=== PATIENT | female | born 1975 | race African-American/Black ===

== ENCOUNTER 2024-12-14 12:15 | Inpatient (IN) | payer MEDICAID, OTHER ==
[~2024-12-14] VITALS: Ht 170.2 cm; Wt 141.7 kg
--- NOTE | 2024-12-14 12:36 | ED.PDOC ---
HPI Comments This is a 49-year-old female who comes in with chief complaint of chest pain which started at approximately 7:00 a.m. this morning. The patient states that she has not taken her blood pressure medications for approximately three months as well as some other medications. The patient is also complaining of some nausea which she states she typically has and take Zofran for but she has been out of her medication. She states that the pain is stabbing in nature. It is nonradiating and rates a 7/10. There has been some shortness a breath but no fever or cough. Patient recently moved from [place] so does not have a primary care doctor at this time. She states that she has had a history of heart attack in the past and was also seen at [facility] for her cardiac disease. Chief Complaint: Chest Pain Time Seen by MD: 12:21 Reviewed Notes: Nurses Notes, Medications, Allergies (No allergies to medications) Allergies: Coded Allergies: Aspirin (Verified Allergy, Unknown, 12/14/24) Information Source: Patient Mode of Arrival: Ambulatory Severity: Moderate Timing: Hours (Started 7:00 a.m. in the morning) Duration: Since onset Prehospital treatment: None Location: Substernal Radiation: No Radiation Quality: Stabbing Onset: At Rest Cardiac Risk Factors: Smoker (Previous smoker), Family History, HTN PE Risk Factors: None History of: Similar pain in past, [place] Modifying Factors: Nothing Associated Signs and Symptoms: SOB, N/V (Nausea but no vomiting) Past Medical History PAST MEDICAL HISTORY: Arthritis, Asthma, Liver (Fatty liver disease), [place] Past Medical History (Other): Chronic back pain Surgical History: , Hysterectomy Surgical History (Other): Back procedures LICENSED PHYSICAL THERAPIST History: No Pertinent LICENSED PHYSICAL THERAPIST History Family History Family History: Family hx of heart arin Social History Smoker: Quit Less Than 1 Year Alcohol: Denies ETOH Use Drugs: Denies Drug Use Lives In: Home Constitutional: reports: weakness; denies: chills, diaphoresis, fatigue, fever, malaise, sweats, others EENTM: denies: blurred vision, double vision, ear bleeding, ear discharge, ear drainage, ear pain, ear ringing, eye pain, eye redness, hearing loss, mouth pain, mouth swelling, nasal discharge, nose bleeding, nose congestion, nose pain, photophobia, tearing, throat pain, throat swelling, voice changes, others Respiratory: reports: shortness of breath; denies: cough, hemoptysis, orthopnea, SOB at rest, SOB with excertion, stridor, wheezing, others Cardiovascular: reports: chest pain; denies: dizzy spells, diaphoresis, Dyspnea on exertion, edema, irregular heart beat, left arm pain, lightheadedness, palpitations, PND, syncope, others Gastrointestinal: reports: nausea; denies: abdomen distended, abdominal pain, blood streaked bowels, constipated, diarrhea, dysphagia, difficulty swallowing, hematemesis, melena, poor appetite, poor fluid intake, rectal bleeding, rectal pain, vomiting, others Genitourinary: denies: abnormal vagina bleeding, burning, dyspareunia, dysuria, flank pain, frequency, hematuria, incontinence, pain, , vagina discharge, urgency, others Neurological: reports: dizziness; denies: fainting, headache, left sided numbness, left sided weakness, numbness, paresthesia, pre-existing deficit, right sided numbness, right sided weakness, seizure, speech problems, tingling, tremors, weakness, others Musculoskeletal: denies: back pain, gout, joint pain, joint swelling, muscle pain, muscle stiffness, neck pain, others Integumetry: denies: bruises, change in color, change in hair/nails, dryness, laceration, lesions, lumps, rash, wounds, others Allergic/Immunocompromised: denies: Difficulty Healing, Frequent Infections, Hives, Itching, others Hematologic/Lymphatic: denies: anemia, blood clots, easy bleeding, easy bruising, swollen glands, others Endocrine: denies: excessive hunger, excessive sweating, excessive thirst, excessive urination, flushing, intolerance to cold, intolerance to heat, unexplained weight gain, unexplained weight loss, others Psychiatric: denies: anxiety, bipolar disorder, depression, hopeless, panic disorder, schizophrenia, sleepless, suicidal, others Physical Exam General Appearance: Moderate Distress, Obese HEENT: Normal ENT Inspection, Pharynx Normal, TMs Normal Neck: Full Range of Motion, Non-Tender, Normal, Normal Inspection Respiratory: Chest Non-Tender, Lungs Clear, No Accessory Muscle Use, No Respiratory Distress, Normal Breath Sounds Cardiovascular: No Edema, No JVD, No Murmur, No Gallop, Normal Peripheral Pulses, Regular Rate/Rhythm Breast Exam: Deferred Gastrointestinal: No Organomegaly, Non Tender, No Pulsatile Mass, Normal Bowel Sounds, Soft Genitalia: Deferred Pelvic: Deferred Rectal: Deferred Extremities: No calf tenderness, Normal capillary refill, Normal inspection, Normal range of motion, Non-tender, No pedal edema Musculoskeletal : Apperance: Normal Neurologic: Alert, head of acquisitions II-XII nml as Tested, Motor Weakness, Normal Affect, Normal Mood, No Sensory Deficits Cerebellar Function: Normal Reflexes: Normal Skin: Dry, Normal Color, Warm Lymphatic: No Adenopathy EKG EKG : Pulse Rate (adult): 93 [place]: Normal Cardiac Rhythm: NSR Hypertrophy: LAE Was a procedure done? Was a procedure done?: No CP Differential Dx Differential Diagnosis: Angina, [place], Pulmonary Embolus Differential Diagnosis: CHF Differential Diagnosis: Pericarditis X-Ray, Labs, Meds, VS Vital Signs Date Time Temp Pulse Resp B/P (MAP) Pulse Ox O2 Delivery O2 Flow Rate FiO2 12/14/24 15:30 98.1 89 19 140/88 (105) 96 98.1 12/14/24 15:30 Room Air* 0 21 12/14/24 13:20 92 12/14/24 12:36 93 12/14/24 12:33 98.0 93 18 161/100 (120) 98 98.0 12/14/24 12:22 93 Lab Test 12/14/24 13:47 12/14/24 12:36 Range/Units Troponin I High Sensitivity < 3 L < 3 L </=34 ng/L White Blood Count 5.0 4.4-10.8 10^3/uL Red Blood Count 4.38 4.0-5.20 10^6/uL Hemoglobin 11.7 L 12.2-16.2 g/dL Hematocrit 35.6 L 36.0-46.0 % Mean Corpuscular Volume 81.3 80.0-100.0 fL Mean Corpuscular Hemoglobin 26.6 L 28.0-32.0 pg Mean Corpuscular Hemoglobin Concent 32.8 32.0-36.0 g/dL Red Cell Distribution Width 14.5 H 11.8-14.3 % Platelet Count 272 140-450 10^3/uL Mean Platelet Volume 7.7 6.9-10.8 fL Neutrophils (%) (Auto) 43.8 37.0-80.0 % Lymphocytes (%) (Auto) 45.5 10.0-50.0 % Monocytes (%) (Auto) 6.1 0.0-12.0 % Eosinophils (%) (Auto) 3.6 0.0-7.0 % Basophils (%) (Auto) 1.0 0.0-2.0 % Neutrophils # (Auto) 2.2 1.6-8.6 10 ^3/uL Lymphocytes # (Auto) 2.3 0.4-5.4 10 ^3/uL Monocytes # (Auto) 0.3 0-1.3 10 ^3/uL Eosinophils # (Auto) 0.2 0-0.8 10 ^3/uL Basophils # (Auto) 0.1 0-0.2 10 ^3/uL Nucleated Red Blood Cells 0.3 % Prothrombin Time 10.6 9.3-11.8 sec Prothrombin Time INR 1.00 0.9-1.15 Activated Partial Thromboplast Time 27.0 24.5-34.5 SEC Sodium Level 142 136-145 mmol/L Potassium Level 3.9 3.5-5.1 mmol/L Chloride Level 108 H 98-107 mmol/L Carbon Dioxide Level 26 20-31 mmol/L Anion Gap 8 5-15 Blood Urea Nitrogen 8 L 9-23 mg/dL Creatinine 0.64 0.550-1.02 mg/dL Glomerular Filtration Rate Calc 107 >90 mL/min BUN/Creatinine Ratio 12.5 10.0-20.0 Serum Glucose 110 H 74-106 mg/dL Calcium Level 10.0 8.7-10.4 mg/dL Magnesium Level 1.9 1.6-2.6 mg/dL Total Bilirubin 0.6 0.2-1.0 mg/dL Aspartate Amino Transferase (AST) < 8 L 13-40 U/L Alanine Aminotransferase (ALT) 14 7-40 U/L Alkaline Phosphatase 89 46-116 U/L B-Type Natriuretic Peptide 7.56 0-100 pg/mL Total Protein 7.7 5.7-8.2 g/dL Albumin 4.3 3.2-4.8 g/dL IV Hep-Lock was established The patient's CBC is within normal limits The chemistry panel is within normal limits The troponin level x2 is negative The chest x-ray shows: No sign of any abnormalities At this time, the patient is being admitted to the hospitalist A cardiology consult will be obtained The patient is allergic to aspirin so was not given any aspirin The patient is being given morphine 4 mg IV push The patient is given Zofran 4 mg IV push Images Reviewed?: Images reviewed and evaluated by me Time of 1ST Reevaluation: 12:35 Reevaluation 1ST: Unchanged Patient Education/Counseling: Diagnosis, Treatment, Prognosis Family Education/Counseling: No Family Present Departure 1 Departure Time of Disposition: 15:48 Impression: Primary Impression: Acute coronary syndrome Disposition: 09 ADMITTED INPATIENT Admit to: Tele Condition: Fair Critical Care Note Critical Care Time?: Yes (45 min-critical care time only) Stability Stability form required: Yes Unstable for transfer: Telemetry monitoring (Telemetry monitoring required), ED Physician Assesment (Clinical assesment) Heart Score Heart Score: Heart Score Response (Comments) Value History Moderate Suspicious 1 EKG Normal 0 Age 45-64 1 Risk Factors >3 or Hx ASHD 2 Troponin Normal limit 0 Total 4 CHELLY HINES MD December 14, 2024 12:36
[2024-12-14 12:50] LABS: Basophils # (auto) 0.1 10 ^3/uL (0-0.2); Eosinophils # (auto) 0.2 10 ^3/uL (0-0.8); Eosinophils % (auto) 3.6 % (0.0-7.0); Hematocrit 35.6 % (36.0-46.0); Hemoglobin 11.7 g/dL (12.2-16.2); Lymphocytes # (auto) 2.3 10 ^3/uL (0.4-5.4); Lymphocytes % (auto) 45.5 % (10.0-50.0); Mean Corpuscular Hemoglobin 26.6 pg (28.0-32.0); Mean Corpuscular Hgb Conc. 32.8 g/dL (32.0-36.0); Mean Corpuscular Volume 81.3 fL (80.0-100.0); Monocytes # (auto) 0.3 10 ^3/uL (0-1.3); Monocytes % (auto) 6.1 % (0.0-12.0); Neutrophils # (auto) 2.2 10 ^3/uL (1.6-8.6); Neutrophils % (auto) 43.8 % (37.0-80.0); Nucleated Red Blood Cells % 0.3 %; Platelet Count (auto) 272 10^3/uL (140-450); Red Blood Cells 4.38 10^6/uL (4.0-5.20); Red Cell Distribution Width 14.5 % (11.8-14.3)
[2024-12-14 13:05] LABS: Prothrombin Time 10.6 sec (9.3-11.8)
[2024-12-14 13:07] LABS: Alanine Aminotransferase 14 U/L (7-40); Albumin 4.3 g/dL (3.2-4.8); Alkaline Phosphatase 89 U/L (46-116); Anion Gap 8 (5-15); BUN/Creatinine Ratio 12.5 (10.0-20.0); Bilirubin, Total 0.6 mg/dL (0.2-1.0); Carbon Dioxide 26 mmol/L (20-31); Magnesium 1.9 mg/dL (1.6-2.6); Potassium 3.9 mmol/L (3.5-5.1); Sodium 142 mmol/L (136-145); Total Protein 7.7 g/dL (5.7-8.2)
[2024-12-14 13:12] LABS: Aspartate Aminotransferase < 8 U/L (13-40); Blood Urea Nitrogen 8 mg/dL (9-23); Chloride 108 mmol/L (98-107); Glucose 110 mg/dL (74-106)
--- NOTE | 2024-12-14 13:20 | DVH ---
EXAM: XY CHEST PORTABLE Indication: CP Technique: Single frontal view of the chest was obtained Comparison: None FINDINGS: Lines and Tubes: None Lungs: No focal consolidation. Pleura: No effusion. No pneumothorax. Cardiomediastinal contours: Unremarkable Bones: No acute osseous abnormality. IMPRESSION: No acute cardiopulmonary disease.
--- NOTE | 2024-12-14 13:22 | ECG ---
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
[2024-12-14] MEDS: ONDANSETRON HCL 4 MG/2 ML VIAL IV ONE (16:40)
[2024-12-14] MEDS: MORPHINE SULFATE 4 MG/ML SYR/VIAL IV ONE (16:40)
[2024-12-14] MEDS ORDERED: MORPHINE SULFATE INJ 2 MG/ml SYRG IV PRN (18:15)
[2024-12-14] MEDS ORDERED: NITROGLYCERIN 0.4 MG SL TAB SL PRN (18:15)
[2024-12-14] MEDS ORDERED: ACETAMINOPHEN 325 MG TAB PO PRN (18:30)
[2024-12-14] MEDS ORDERED: hydroCHLOROthiazide 25 MG TAB PO ONE (18:30)
[2024-12-14] MEDS ORDERED: ENOXAPARIN SOD 40 MG/0.4 ML SYRINGE SC ONE (18:45)
--- NOTE | 2024-12-14 20:20 | DVHHPRES ---
History of Present Illness Resident Creating Document: VANNA BALLARD RESIDENT Reason for Visit: Chest pain, back pain History of Present Illness Patient is a 49-year-old female with a past medical history of arthritis, asthma liver fatty liver disease and [place] presented to the ED with a chief complaint of chest pain thus we will care of this morning. Per the patient she described the pain as stabbing in nature, intermittent with no radiation, reproducible on palpation and rated 7/10. According to the patient, she just relocated from [place] to [place], but before coming here, there was an family emergency in [place] where she lived for few months prior to coming to [place]. According to the patient while in [place], she follows with a bakery machine mechanic Dr. Parker bhagat who has run multiple tests including stress test, LIV, etc. regarding her chest pain and so far nothing has yielded any results. She states that she has had a history of heart attack in the past and was also seen at [facility] for her cardiac disease. In the ED today,her troponin, BNP and chest x-ray were all negative for any acute findings. Patient denied cought, flu lik symptoms, fever, chills. shortness of breath. Patient vitals in the ED was grossly unremarkable other than elevated blood pressure which measures 168/100. Patient also mentioned that were attenuation where she has been having spinal pain for which she sees Dr. Diaz. Dr. Lozoya is a spine doctor who diagnosed her of lumbar spinal stenosis. She has been on pain medication for a very long time but nothing has seemed to control her pain level. Past medical history: Arthritis, Asthma, Liver (Fatty liver disease), [place],Chronic back pain Surgical History: , Hysterectomy,Back procedures MARGARINE CHURN OPERATOR History: No Pertinent MARGARINE CHURN OPERATOR History Family history: hx of heart arin Social history: Smoker quit about a year ago, denies alcohol use denies any drug abuse lives at home. Quit Less Than 1 Year Past Medical History See HPI Past Surgical History See HPI Review of Systems Review of Systems Constitutional: Denies fever no chills no feeling of malaise, mild distress chest pain HEENT: Denies headache, ear pain, ear discharges, conjunctivitis, nasal discharge throat pain Cardiovascular: Denies chest pain, palpitation, orthopnea, PND, or pedal edema Respiratory: Denies shortness of breath, cough cough, sputum production, hem optysis, GI: Denies abdominal pain, nausea, vomiting, diarrhea, hematemesis, hematochezia, : Denies frequency, urgency, hematuria, Endocrine: Denies unintentional weight gain or weight loss, feeling of hot flashes, [place]: Denies easy bruising, bleeding disorders, epistaxis Musculoskeletal: Denies joint pains, muscle aches Psych: No evidence of depression, tadeo, suicidal ideation Allergies: Coded Allergies: Aspirin (Verified Allergy, Unknown, 12/14/24) Medications Current Medications Medications Dose Ordered Sig/Cezar Route Start Time Stop Time Status Last Admin Dose Admin Nitroglycerin 0.4 mg Q5MINP PRN SL 12/14/24 18:15 Morphine Sulfate 2 mg Q30M PRN IV 12/14/24 18:15 Hydrochlorothiazide 12.5 mg DAILY PO 12/15/24 10:00 Acetaminophen/ Hydrocodone Bitart 1 tab Q6HPRN PRN PO 12/14/24 18:30 Acetaminophen 325 mg Q4HP PRN PO 12/14/24 18:30 Exam Vital Signs Vital Signs Date Time Temp Pulse Resp B/P (MAP) Pulse Ox O2 Delivery O2 Flow Rate FiO2 12/14/24 18:07 98.5 91 13 145/80 (101) 97 98.5 12/14/24 15:30 Room Air* 0 21 Exam General Appearance: Alert, Oriented X3, Cooperative, No acute distress HEENT: Atraumatic, PERRLA, EOMI, Mucous membrane moist/pink Respiratory: Clear to auscultation, Normal air movement Cardiovascular: Regular rate, Normal S1, Normal S2, No murmurs, chest wall tenderness Abdominal: NO distention, tenderness, bowel sounds present, no scars noted Extremities: No clubbing, No cyanosis, No edema, Normal pulses, No tenderness/swelling Skin: No rashes, No breakdown, No significant lesion Neuro: Normal gait, Normal speech, Strength at 5/5 X4 ext, Normal tone, Sensation intact, Cranial nerves 3-12 NL, Reflexes 2+, spin column tenderness Psych/Mental Status: Mental status NL, Mood NL Labs/Xrays Labs Test 12/14/24 13:47 12/14/24 12:36 Range/Units Troponin I High Sensitivity < 3 L </=34 ng/L White Blood Count 5.0 4.4-10.8 10^3/uL Red Blood Count 4.38 4.0-5.20 10^6/uL Hemoglobin 11.7 L 12.2-16.2 g/dL Hematocrit 35.6 L 36.0-46.0 % Mean Corpuscular Volume 81.3 80.0-100.0 fL Mean Corpuscular Hemoglobin 26.6 L 28.0-32.0 pg Mean Corpuscular Hemoglobin Concent 32.8 32.0-36.0 g/dL Red Cell Distribution Width 14.5 H 11.8-14.3 % Platelet Count 272 140-450 10^3/uL Mean Platelet Volume 7.7 6.9-10.8 fL Neutrophils (%) (Auto) 43.8 37.0-80.0 % Lymphocytes (%) (Auto) 45.5 10.0-50.0 % Monocytes (%) (Auto) 6.1 0.0-12.0 % Eosinophils (%) (Auto) 3.6 0.0-7.0 % Basophils (%) (Auto) 1.0 0.0-2.0 % Neutrophils # (Auto) 2.2 1.6-8.6 10 ^3/uL Lymphocytes # (Auto) 2.3 0.4-5.4 10 ^3/uL Monocytes # (Auto) 0.3 0-1.3 10 ^3/uL Eosinophils # (Auto) 0.2 0-0.8 10 ^3/uL Basophils # (Auto) 0.1 0-0.2 10 ^3/uL Nucleated Red Blood Cells 0.3 % Prothrombin Time 10.6 9.3-11.8 sec Prothrombin Time INR 1.00 0.9-1.15 Activated Partial Thromboplast Time 27.0 24.5-34.5 SEC Sodium Level 142 136-145 mmol/L Potassium Level 3.9 3.5-5.1 mmol/L Chloride Level 108 H 98-107 mmol/L Carbon Dioxide Level 26 20-31 mmol/L Anion Gap 8 5-15 Blood Urea Nitrogen 8 L 9-23 mg/dL Creatinine 0.64 0.550-1.02 mg/dL Glomerular Filtration Rate Calc 107 >90 mL/min BUN/Creatinine Ratio 12.5 10.0-20.0 Serum Glucose 110 H 74-106 mg/dL Calcium Level 10.0 8.7-10.4 mg/dL Magnesium Level 1.9 1.6-2.6 mg/dL Total Bilirubin 0.6 0.2-1.0 mg/dL Aspartate Amino Transferase (AST) < 8 L 13-40 U/L Alanine Aminotransferase (ALT) 14 7-40 U/L Alkaline Phosphatase 89 46-116 U/L B-Type Natriuretic Peptide 7.56 0-100 pg/mL Total Protein 7.7 5.7-8.2 g/dL Albumin 4.3 3.2-4.8 g/dL Assessment/Plan Assessment/Plan Assessment Chest pain rule out acute coronary syndrome Chest pain atypical noncardiac related probably musculoskeletal Hypertensive urgency Chronic back pain Morbid obesity BMI 48.9 Arthritis, Asthma, Liver (Fatty liver disease), Hisotory of [place] Chronic back pain Plan recheck troponins Initiate antihypertensive medication: hydrochlorothiazide Pain medication with Tylenol for mild pain, [place] for moderate level pain Repeat CMP in the morning Get records from bakery machine mechanic in [place] Goal of care discussed for more than 20 minutes: Full code Case and plan discussed with Dr. Edmonds Plan discussed with: Patient My Orders Orders - VANNA BALLARD RESIDENT Procedure Category Date Status Time Admit ADMIT 12/14/24 Transmitted 18:15 Nitroglycerin PHA 12/14/24 In Process Sublingual (Ntrostat 18:15 Morphine Sulfate PHA 12/14/24 In Process Injection 18:15 Oxygen By Nasal RT 12/14/24 Transmitted Cannula 18:15 Stat Ekg For Chest PEYTON 12/14/24 In Process Pain 18:15 Notify Md Of Changes PEYTON 12/14/24 In Process From Base 18:15 Dupligraph Operator For PEYTON 12/14/24 In Process 24 Hours 18:15 Hydrochlorothiazide PHA 12/15/24 In Process Tablet (Hydrochlorot 10:00 Hydrocodone-Acet PHA 12/14/24 In Process 5/325mg Tab ([place] 18:30 Acetaminophen Tablet PHA 12/14/24 In Process (Tylenol Tablet) 18:30 Covid19 Antigen Zhanna LAB 12/14/24 Logged Rapid Influenza A&B LAB 12/14/24 Logged 18:27 Erythrocyte LAB 12/14/24 Logged Sedimentation Rate 18:27 Date of Service: December 14, 2024 Billing Provider: MARGARITA EDMONDS MD Common Visit Codes: [id number] INP/OBS CARE (HIGH) VANNA BALLARD RESIDENT December 14, 2024 20:20 MARGARITA EDMONDS MD December 15, 2024 07:21
[2024-12-14 20:59] LABS: COVID19 ANTIGEN SOFIA FIA NEGATIVE (NEGATIVE)
[2024-12-14 21:15] LABS: Erythrocyte Sedimentation Rate 39 mm/hr (0-20)
[2024-12-15 01:56] LABS: Rapid Influenza A Negative (Negative); Rapid Influenza B Negative (Negative)
[2024-12-15] MEDS: HYDROcodone-ACET 5/325MG TAB PO PRN (02:53)
[2024-12-15] MEDS ORDERED: KETOROLAC TROMETH 30 MG/ML 1ML VIAL IV PRN (03:15)
[2024-12-15 03:30] VITALS: BP 140/90; PULSE 83; RESP 15; TEMP 97.8; O2SAT 95
[2024-12-15] MEDS: LOSARTAN POTASSIUM 50 MG TAB PO SCH (03:58)
[2024-12-15 05:00] VITALS: BP 140/90; PULSE 83; RESP 14; TEMP 97.8; O2SAT 95
[2024-12-15] MEDS: METHOCARBAMOL 500 MG TAB PO SCH (06:00)
[2024-12-15] MEDS: GABAPENTIN 100 MG CAP PO SCH (06:38)
[2024-12-15 09:00] VITALS: BP 128/78; PULSE 73; TEMP 97.8; O2SAT 98
[2024-12-15 09:54] LABS: Potassium 4.2 mmol/L (3.5-5.1); Sodium 142 mmol/L (136-145)
[2024-12-15 09:55] LABS: Anion Gap 5 (5-15); Calcium 9.8 mg/dL (8.7-10.4); Carbon Dioxide 29 mmol/L (20-31)
[2024-12-15 09:59] LABS: Chloride 108 mmol/L (98-107)
[2024-12-15 10:00] LABS: BUN/Creatinine Ratio 10.3 (10.0-20.0); Blood Urea Nitrogen 7 mg/dL (9-23); Glucose 170 mg/dL (74-106)
[2024-12-15] MEDS ORDERED: MORPHINE SULFATE INJ 2 MG/ml SYRG IV SCH (10:00)
[2024-12-15 10:01] LABS: CRP High Sensitivity 0.68 mg/dL (<1.0)
[2024-12-15] MEDS: ENOXAPARIN SOD 40 MG/0.4 ML SYRINGE SC SCH (11:14)
[2024-12-15] MEDS: MORPHINE SULFATE INJ 2 MG/ml SYRG IV PRN (11:26)
[2024-12-15] MEDS: hydroCHLOROthiazide 25 MG TAB PO SCH (12:22)
[2024-12-15 13:00] VITALS: BP 116/70; PULSE 83; RESP 16; TEMP 98.6; O2SAT 100
--- NOTE | 2024-12-15 14:55 | ECG ---
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
--- NOTE | 2024-12-15 16:16 | DVHPNRES ---
Progress Note Date Seen: December 15, 2024 Resident Creating Document: VANNA BALLARD RESIDENT Has the PT tested + for MRSA If YES, has PT been informed?: No Medical Necessity Reason Pt with a Central, PICC or Fol: No Medical Necessity Reason 12/15 Patient is seen and examined today. Blood pressure seems better than yesterday. However she continued to complain of back pain and said she did not feel well with the [place]. We lei asked for the number from her r d manager's office to reach out to Dr. Canales to faxed her cardiac history and what she was managed for in the past. Also got the telephone number [email or web address] with DR. Diaz, her spine doctor's office. Patient the patient, she was getting steriod injection every 2 months for her back pain. I did mentioned to the patient that she will need to be seen by a specialist for this type of pain management. Also complained of abdominal pain and she is currently on showed on 3 L of oxygen which is new from yesterday. She has no evidence of bilateral pitting edema but given her current code had history said to get an echo to re-evaluate. ESR elevated, but CRP is wnl. Subjective Review of Systems Constitutional: Denies fever no chills no feeling of malaise HEENT: Denies headache, ear pain, ear discharges, conjunctivitis, nasal discharge throat pain Cardiovascular: Denies chest pain, palpitation, orthopnea, PND, or pedal edema Respiratory: Denies shortness of breath, cough cough, sputum production, hemoptysis, GI: Denies abdominal pain, nausea, vomiting, diarrhea, hematemesis, hematochezia, : Denies frequency, urgency, hematuria, Endocrine: Denies unintentional weight gain or weight loss, feeling of hot flashes, [place]: Denies easy bruising, bleeding disorders, epistaxis Musculoskeletal: Denies joint pains, muscle aches Psych: No evidence of depression, tadeo, suicidal ideation Objective vital signs Vital Sign Date Time Temp Pulse Resp B/P (MAP) Pulse Ox O2 Delivery O2 Flow Rate FiO2 12/15/24 13:00 83 12/15/24 13:00 98.6 16 116/70 (85) 100 98.6 12/14/24 15:30 Room Air* 0 21 medications Current Medications Medications Dose Ordered Sig/Cezar Route Start Time Stop Time Status Last Admin Dose Admin Nitroglycerin 0.4 mg Q5MINP PRN SL 12/14/24 18:15 Hydrochlorothiazide 12.5 mg DAILY PO 12/15/24 10:00 12/15/24 12:22 12.5 MG Acetaminophen 325 mg Q4HP PRN PO 12/14/24 18:30 Losartan Potassium 50 mg DAILY PO 12/15/24 03:15 12/15/24 03:58 50 MG Gabapentin 100 mg BID PO 12/15/24 04:15 12/15/24 11:13 100 MG Methocarbamol 500 mg QID PO 12/15/24 04:15 12/15/24 13:31 500 MG Enoxaparin Sodium 40 mg DAILY SC 12/15/24 10:00 12/15/24 11:14 40 MG Morphine Sulfate 1 mg Q4HP PRN IV 12/15/24 11:00 12/15/24 11:26 1 MG Examination General Appearance: Alert, Oriented X3, Cooperative, No acute distress HEENT: Atraumatic, PERRLA, EOMI, Mucous membrane moist/pink Respiratory: Clear to auscultation, Normal air movement Cardiovascular: Regular rate, Normal S1, Normal S2, No murmurs, chest wall tenderness Abdominal: Large abdomen tenderness, bowel sounds present, no scars noted Extremities: No clubbing, No cyanosis, No edema, Normal pulses, No tenderness/swelling Skin: No rashes, No breakdown, No significant lesion Neuro: Normal gait, Normal speech, Strength at 5/5 X4 ext, Normal tone, Sensation intact, Cranial nerves 3-12 NL, Reflexes 2+ Psych/Mental Status: Mental status NL, Mood NL laboratory and microbiology Laboratory Tests 12/15/24 09:25 12/14/24 12:36 Test 12/15/24 09:25 Range/Units Serum Glucose 170 H 74-106 mg/dL Problem List/Assessment/Plan Problem List/Assessment/Plan Assessment Chest pain rule out acute coronary syndrome Chest pain atypical noncardiac related probably musculoskeletal Hypertensive urgency, imp Chronic back pain Morbid obesity BMI 48.9 Arthritis, Asthma, Steatosis (Fatty liver disease), 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 Parker Almazan and Dr. Diaz's office for information Echo and US of the abdomen Goal of care discussed for more than 15 minute: Full code Case and plan discussed with Dr. Doran Plan discussed with: Patient My Orders My Orders Orders - VANNA BALLARD RESIDENT Procedure Category Date Status Time Admit ADMIT 12/14/24 Transmitted 18:15 Nitroglycerin PHA 12/14/24 In Process Sublingual (Ntrostat 18:15 Oxygen By Nasal RT 12/14/24 Transmitted Cannula 18:15 Stat Ekg For Chest PEYTON 12/14/24 In Process Pain 18:15 Notify Md Of Changes PEYTON 12/14/24 In Process From Base 18:15 Grip Assembler For PEYTON 12/14/24 In Process 24 Hours 18:15 Hydrochlorothiazide PHA 12/15/24 In Process Tablet (Hydrochlorot 10:00 Acetaminophen Tablet PHA 12/14/24 In Process (Tylenol Tablet) 18:30 Electrocardigram EKG 12/14/24 Logged 22:30 Enoxaparin Sodium PHA 12/15/24 In Process (Lovenox) 10:00 Morphine Sulfate PHA 12/15/24 In Process Injection 11:00 Electrocardigram EKG 12/15/24 Logged 11:47 Echo 2d Mode Cardiac US 12/15/24 Logged DOP 14:48 Abdomen Limited US 12/15/24 Taken 14:48 Date of Service: December 15, 2024 Billing Provider: CHELSIE DORAN MD Common Visit Codes: [id number] INP/OBS CARE(HIGH) VANNA BALLARD RESIDENT December 15, 2024 16:16 CHELSIE DORAN MD December 15, 2024 18:00
--- NOTE | 2024-12-15 16:54 | DVH ---
INDICATION: Right sided abdomen pain TECHNIQUE: Multiple real-time sonographic images of the abdomen were obtained. COMPARISON: None FINDINGS: The liver is heterogeneous in echogenicity. The liver measures 18cm. No intrahepatic bilia ry ductal dilatation is noted. The gallbladder wall measures 0.2 cm and is unremarkable. No gallstones or sludge is seen. The commo n duct measures 0.3 cm and is unremarkable. No pericholecystic fluid is noted. The right kidney measures 10cm. No hydronephrosis. The pancreas is not well visualized due to obscuration from bowel gas. The visualized portions of the IVC and aorta are grossly unremarkable. IMPRESSION: Hepatomegaly/hepatic steatosis
[2024-12-15 17:00] VITALS: BP 119/69; PULSE 74; RESP 16; TEMP 98.6; O2SAT 99
[2024-12-15 21:00] VITALS: BP 119/69; PULSE 88; RESP 16; TEMP 97.8; O2SAT 100
[2024-12-16] VITALS (9 sets, daily range): BP systolic 110–149; BP diastolic 62–81; PULSE 71–98; RESP 17–19; TEMP 97.7–98.3; O2SAT 94–100
[2024-12-16] MEDS ORDERED: GABA-1308 PO (11:31)
[2024-12-16] MEDS ORDERED: HYDR-4902 PO (11:31)
[2024-12-16] MEDS ORDERED: LOSA-534 PO (11:55)
[2024-12-16] MEDS ORDERED: METH-1181 PO (11:55)
[2024-12-16] MEDS ORDERED: HYDR25TA5 PO (11:55)
[2024-12-16] MEDS ORDERED: ACET-1882 PO (11:55)
[2024-12-16] MEDS: MORPHINE SULFATE 4 MG/ML SYR/VIAL IV PRN (12:00)
--- NOTE | 2024-12-16 12:09 | DVHDSRES ---
Discharge Summary Date of Admission Resident Creating Document: VANNA BALLARD RESIDENT December 14, 2024 at 18:15 Date of Discharge: December 16, 2024 Admitting Diagnosis Chest pain Labs/Diagnostic Data: Laboratory Results Test 12/15/24 09:25 12/15/24 01:04 12/14/24 21:54 12/14/24 20:20 Sodium Level 142 mmol/L (136-145) Potassium Level 4.2 mmol/L (3.5-5.1) Chloride Level 108 mmol/L (98-107) Carbon Dioxide Level 29 mmol/L (20-31) Anion Gap 5 (5-15) Blood Urea Nitrogen 7 mg/dL (9-23) Creatinine 0.68 mg/dL (0.550-1.02) Glomerular Filtration Rate Calc 105 mL/min (>90) BUN/Creatinine Ratio 10.3 (10.0-20.0) Serum Glucose 170 mg/dL (74-106) Calcium Level 9.8 mg/dL (8.7-10.4) C-Reactive Protein High Sensitivity 0.68 mg/dL (<1.0) Thyroid Stimulating Hormone (TSH) 1.03 uIU/mL (0.55-4.78) Influenza Type A Antigen Negative (Negative) Influenza Type B Antigen Negative (Negative) Troponin I High Sensitivity < 3 ng/L (</=34) SARS-CoV-2 Antigen (Rapid) Negative (NEGATIVE) Test 12/14/24 19:24 12/14/24 12:36 Erythrocyte Sedimentation Rate 39 mm/hr (0-20) White Blood Count 5.0 10^3/uL (4.4-10.8) Red Blood Count 4.38 10^6/uL (4.0-5.20) Hemoglobin 11.7 g/dL (12.2-16.2) Hematocrit 35.6 % (36.0-46.0) Mean Corpuscular Volume 81.3 fL (80.0-100.0) Mean Corpuscular Hemoglobin 26.6 pg (28.0-32.0) Mean Corpuscular Hemoglobin Concent 32.8 g/dL (32.0-36.0) Red Cell Distribution Width 14.5 % (11.8-14.3) Platelet Count 272 10^3/uL (140-450) Mean Platelet Volume 7.7 fL (6.9-10.8) Neutrophils (%) (Auto) 43.8 % (37.0-80.0) Lymphocytes (%) (Auto) 45.5 % (10.0-50.0) Monocytes (%) (Auto) 6.1 % (0.0-12.0) Eosinophils (%) (Auto) 3.6 % (0.0-7.0) Basophils (%) (Auto) 1.0 % (0.0-2.0) Neutrophils # (Auto) 2.2 10 ^3/uL (1.6-8.6) Lymphocytes # (Auto) 2.3 10 ^3/uL (0.4-5.4) Monocytes # (Auto) 0.3 10 ^3/uL (0-1.3) Eosinophils # (Auto) 0.2 10 ^3/uL (0-0.8) Basophils # (Auto) 0.1 10 ^3/uL (0-0.2) Nucleated Red Blood Cells 0.3 % Prothrombin Time 10.6 sec (9.3-11.8) Prothrombin Time INR 1.00 (0.9-1.15) Activated Partial Thromboplast Time 27.0 SEC (24.5-34.5) Magnesium Level 1.9 mg/dL (1.6-2.6) Total Bilirubin 0.6 mg/dL (0.2-1.0) Aspartate Amino Transferase (AST) < 8 U/L (13-40) Alanine Aminotransferase (ALT) 14 U/L (7-40) Alkaline Phosphatase 89 U/L (46-116) B-Type Natriuretic Peptide 7.56 pg/mL (0-100) Total Protein 7.7 g/dL (5.7-8.2) Albumin 4.3 g/dL (3.2-4.8) Other Laboratory Tests 12/15/24 09:25 12/14/24 12:36 Brief Hx & Hospital Course: History of Present Illness Patient is a 49-year-old female with a past medical history of arthritis, asthma liver fatty liver disease and AL presented to the ED with a chief complaint of chest pain thus we will care of this morning. Per the patient she described the pain as stabbing in nature, intermittent with no radiation, reproducible on palpation and rated 7/10. According to the patient, she just relocated from [place] to [place], but before coming here, there was an family emergency in [place] where she lived for few months prior to coming to [place]. According to the patient while in [place], she follows with a cardiology nurse Dr. Parker bhagat who has run multiple tests including stress test, LIV, etc. regarding her chest pain and so far nothing has yielded any results. She states that she has had a history of heart attack in the past and was also seen at [facility] for her cardiac disease. In the ED today,her troponin, BNP and chest x-ray were all negative for any acute findings. Patient denied cought, flu lik symptoms, fever, chills. shortness of breath. Patient vitals in the ED was grossly unremarkable other than elevated blood pressure which measures 168/100. Patient also mentioned that were attenuation where she has been having spinal pain for which she sees Dr. Diaz. Dr. Lozoya is a spine doctor who diagnosed her of lumbar spinal stenosis. She has been on pain medication for a very long time but nothing has seemed to control her pain level. Past medical history: Arthritis, Asthma, Liver (Fatty liver disease), AL,Chronic back pain Surgical History: , Hysterectomy,Back procedures AUTOMOTIVE SERVICE MANAGEMENT TEACHER History: No Pertinent AUTOMOTIVE SERVICE MANAGEMENT TEACHER History Family history: hx of heart arin Social history: Smoker quit about a year ago, denies alcohol use denies any drug abuse lives at home. Quit Less Than 1 Year Brief Hospitals course This 49-year-old female with a past medical history of arthritis, asthma, liver fatty liver disease and AL presented to the ED with a chief complaint of chest pain that woke her up from sleep. Chest pain as stabbing in nature, intermittent with no radiation, reproducible on palpation and rated 7/10. In the ED today,her troponin, BNP and chest x-ray were all negative for any acute findings. Patient denied cough, flu-lik symptoms, fever, chills, shortness of breath. Vitals in the ED was grossly unremarkable other than elevated blood pressure which measures 168/100. Patient also complained of abdominal pain and she is currently on showed on 3L of oxygen which is new from yesterday. 12 lead ekg is unremarkable. Echo report not available. ESR elevated, but CRP is wnl. Patient was started on hydrochlorothiazide and losartan. For her chronic pain management, patient received [place] and morphine. Today patient is doing well and BP is under control. She is stable for discharge. But she needs to follow up with PCP for a referral to a pain specialist for adequate pain management. Recommends that patient comes to the discharge clinic for post discharge reassessment. Review of System Constitutional: Denies fever no chills no feeling of malaise HEENT: Denies headache, ear pain, ear discharges, conjunctivitis, nasal discharge throat pain Cardiovascular: Denies chest pain, palpitation, orthopnea, PND, or pedal edema Respiratory: Denies shortness of breath, cough cough, sputum production, hemoptysis, GI: Denies abdominal pain, nausea, vomiting, diarrhea, hematemesis, hematochezia, : Denies frequency, urgency, hematuria, Endocrine: Denies unintentional weight gain or weight loss, feeling of hot flashes, [place]: Denies easy bruising, bleeding disorders, epistaxis Musculoskeletal: Denies joint pains, muscle aches Psych: No evidence of depression, tadeo, suicidal ideation Examination General Appearance: Alert, Oriented X3, Cooperative, No acute distress HEENT: Atraumatic, PERRLA, EOMI, Mucous membrane moist/pink Respiratory: Clear to auscultation, Normal air movement Cardiovascular: Regular rate, Normal S1, Normal S2, No murmurs, no chest wall tenderness Abdominal: NO distention, no tenderness, bowel sounds present, no scars noted Extremities: No clubbing, No cyanosis, No edema, Normal pulses, No tenderness/swelling Skin: No rashes, No breakdown, No significant lesion Neuro: Normal gait, Normal speech, Strength at 5/5 X4 ext, Normal tone, Sensation intact, Cranial nerves 3-12 NL, Reflexes 2+ Psych/Mental Status: Mental status NL, Mood NL Diagnoses Chest pain rule out acute coronary syndrome Chest pain atypical noncardiac related probably musculoskeletal Hypertensive urgency, imp Chronic back pain Morbid obesity BMI 48.9 Arthritis, Asthma, Steatosis (Fatty liver disease), History of AL Chronic back pain Abdominal pain Hepatomegaly Discharge plan Follow up at the discharge Clinic 7 days Resume antihypertensive medication Counseled patient on weight loss which will help with the fatty liver Advised patient get a PCP and early also consult waiting neurologist or spine doctor for her chronic back pain Patient advised to return to the ED if she does not feel better Discharged plan discussed with Dr. Amezcua Condition at Discharge: Good Final Diagnosis/Problems List Chest pain rule out acute coronary syndrome Chest pain atypical noncardiac related probably musculoskeletal Hypertensive urgency, imp Chronic back pain Morbid obesity BMI 48.9 Arthritis, Asthma, Steatosis (Fatty liver disease), Hisotory of AL Chronic back pain Abdominal pain Hepatomegaly Discharge Disposition: Home Discharge Instruct/Medications Diet: Cardiac 2g Na,low cholest Activity: No Restrictions, As Tolerated Follow Up/Referral: 7days at the discharge clinic Medications: [place] Hydrochlorothiazide Losartan Gabapentin Methocarbamol Discharge Statement: "Patient was advised to return to the ER or call 911 if any headaches, dizziness, shortness of breath, chest pain, abdominal pain, bleeding, fevers, or worsening of medical condition. Patient was counseled about treatment plan, medications, possible side effects, patientverbalized understanding. All questions were answered to the best of my ability. This discharge took greater then 30 minutes in planning, reviewing documentation, counseling the patient, and discussing with other team members." ASSESSMENT ASSESSMENT Assessment Chest pain rule out acute coronary syndrome Chest pain atypical noncardiac related probably musculoskeletal Hypertensive urgency, imp Chronic back pain Morbid obesity BMI 48.9 Arthritis, Asthma, Steatosis (Fatty liver disease), Hisotory of AL Chronic back pain Abdominal pain Hepatomegaly Date of Service: December 16, 2024 Billing Provider: CHELSIE AMEZCUA MD Common Visit Codes: 29737-OYG/OBS DISCH DAY >30min VANNA BALLARD December 16, 2024 12:09 CHELSIE AMEZCUA MD December 16, 2024 17:45
--- NOTE | 2024-12-17 16:28 | DVHSR ---
APPROVED REPORT EXAM: Two-dimensional and M-mode echocardiogram with Doppler and color Doppler. Blood Pressure: 149/78 mmHg INDICATION shortness of breath RISK FACTORS Obesity: Height: 5'5, Weight: 317 DIMENSIONS LVDd4.4 (3.8-5.7cm)LA (2D)4.1 (1.9-4.0cm)Aortic Root2.9 (2.0-3.7cm) LVDs3.0 (2.5-4.0cm)LA (MM) (1.9-4.0cm)Aortic Cusp Exc1.9 (1.5-2.0cm) EF (%) 55.0 (55-70%)Rt. Atrium4.0 (1.9-4.0cm)Asc. Aorta2.8 cm IVSd1.1 (0.7-1.1cm)RV (D)4.5 (1.8-2.4cm) PWd1.2 (0.7-1.1cm) Mitral Valve MitralMitral Stenosis E wave1.01m/sMV Mean GR.mmHg A wave0.74m/sMV Peak GR.mmHg E/A ratio1.42D MVAcm2 DECEL [id number] 1/2 Timems Aortic Valve Aortic ValveAortic Stenosis V11.20m/Ryder Mean GR.8mmHg V21.88m/Ryder Peak GR.14mmHg LVOT Diameter2.0 (1.8-2.4cm)Doppler AVA2.00cm2 Pulmonic Valve V21.12m/s Conclusion Sinus rhythm. Concentric LVH. Left atrial enlargement. RV enlargement. Valves appear to be structurally normal. EF of 60% with normal RV function. Dopplers unremarkable. Mild TR. No pericardial effusion masses or vegetations.
--- NOTE | 2024-12-23 14:18 | ECG ---
[facility] [place] Test Date: 2024-12-15 Test Time: 12:05:45 Pat Name: LINDA CHO Department: [facility] ED Patient ID: [id number] Room: 0208T A Gender: F Support Associate: benny : 1975 Requested By: CHELLY HINES Order Number: [id number] Reading MD: Josue Mckeon Measurements Intervals [place] Rate: 67 P: 125 TN: 212 QRS: 160 QRSD: 83 T: 169 QT: 415 QTc: 438 Interpretive Statements Incomplete analysis due to missing data in precordial lead(s) Sinus rhythm Prolonged TN interval Probable lateral infarct, age indeterminate Anteroseptal infarct, age indeterminate Missing lead(s): V4,V6 Electronically Signed On 12-24-2024 12:31:14 PDT by Josue Mckeon Please click the below link to view image of tracing.
== END 2024-12-16 18:44 | disposition home or self-care (01) | DRG 198 ==
LOC: ER 12:15 → OVERFLOW 18:15 → TELE-CENTR 12-15 23:54
PROVIDERS: ADMIT Hospitalist; ATTEND Emergency Medicine
DX: R07.89 Other chest pain (principal); I25.2 Old myocardial infarction; R16.0 Hepatomegaly, not elsewhere classified; K76.0 Fatty (change of) liver, not elsewhere classified; E66.01 Morbid (severe) obesity due to excess calories; I16.0 Hypertensive urgency; J45.909 Unspecified asthma, uncomplicated; Z68.42 Body mass index [BMI] 45.0-49.9, adult; G89.29 Other chronic pain; Z20.822 Contact with and (suspected) exposure to COVID-19; Z90.710 Acquired absence of both cervix and uterus; Z87.891 Personal history of nicotine dependence; Z88.8 Allergy status to other drugs, medicaments and biological substances
CPT/HCPCS: 36415; 71045; 76705; 80048; 80053; 83735; 83880; 84443; 84484; 85025; 85610; 85652; 85730; 86141; 87426; 87804; 93005; 93306; 96374; 96375; G0378; J2405

== ENCOUNTER 2024-12-24 19:25 | Inpatient (IN) | payer MEDICAID ==
[~2024-12-24] VITALS: Ht 166.4 cm; Wt 146.8 kg
[~2024-12-24 19:25] MED LIST: ACET-1882 PO; GABA-1308 PO; HYDR-4902 PO; HYDR25TA5 PO; LOSA-534 PO; METH-1181 PO
--- NOTE | 2024-12-24 19:40 | ED.PDOC ---
HPI Comments This is a 49 year old female SMITHA presenting to the ED with chief complaint of chest pain. Patient reports that she initially began to experiencing a headache that feels like her usual migraines today, however, around 09 she began to experience sharp, tight substernal chest pain. Patient relays that she was just admitted to the hospital recently on 12/14/24 and discharged 12/16/24 for similar chest pain, but no automotive service management teacher was seen at the time. EMS notes that the patient 's BP on scene was 208/121. Patient denies any SOB, dizziness, N/V, numbness, weakness, fever, chills, or abdominal pain. Time Seen by MD: 19:37 Reviewed Notes: Nurses Notes, [place] Warp Notes, Medications, Allergies Allergies: Coded Allergies: Aspirin (Verified Allergy, Unknown, 12/14/24) Home Meds Active Scripts Methocarbamol (Methocarbamol) 500 Mg Tab, 500 MG PO QID for 30 Days, #120 TAB Prov:VANNA BALLARD 12/16/24 Losartan Potassium (Losartan Potassium) 50 Mg Tab, 50 MG PO DAILY for 30 Days, #30 TAB Prov:VANNA BALLARD 12/16/24 Hctz (Hydrochlorothiazide) 25 Mg Tab, 12.5 MG PO DAILY for 30 Days, #30 TAB Prov:VANNA BALLARD 12/16/24 Acetaminophen (Acetaminophen) 325 Mg Tab, 325 MG PO Q4HPRN PRN for 30 Days, #150 TAB Prov:VANNA BALLARD 12/16/24 Gabapentin (Gabapentin) 100 Mg Cap, 1 CAP PO TID for 90 Days, #90 CAP 2 Refills Prov:CHELSIE DORAN MD 12/16/24 Hydrocodone-Acetaminophen (Hydrocodone Bitartrate/AC 5-325 mg) 1 Tab Tab, 1 TAB PO TID PRN for 7 Days, #21 TAB Prov:CHELSIE DORAN MD 12/16/24 Information Source: Patient, Emergency Med Personnel Mode of Arrival: EMS Severity: Moderate Timing: Hours Duration: Since onset Prehospital treatment: None Location: Substernal Radiation: No Radiation Quality: Sharp, Tightness Onset: At Rest Cardiac Risk Factors: HTN PE Risk Factors: None History of: Similar pain in past, [place] Past Medical History PAST MEDICAL HISTORY: Arthritis, Asthma, HTN, Liver, [place] Past Medical History (Other): Migraines, SVT Surgical History: , Hysterectomy Surgical History (Other): Back surgeries WELFARE SERVICE AIDE History: No Pertinent WELFARE SERVICE AIDE History Family History Family History: Reviewed,noncontributory to illness, Family hx of heart arin Social History Smoker: Quit Less Than 1 Year Alcohol: Denies ETOH Use Drugs: Denies Drug Use Lives In: Home Constitutional: denies: chills, diaphoresis, fatigue, fever, malaise, sweats, weakness, others EENTM: denies: blurred vision, double vision, ear bleeding, ear discharge, ear drainage, ear pain, ear ringing, eye pain, eye redness, hearing loss, mouth pain, mouth swelling, nasal discharge, nose bleeding, nose congestion, nose pain, photophobia, tearing, throat pain, throat swelling, voice changes, others Respiratory: denies: cough, hemoptysis, orthopnea, SOB at rest, shortness of breath, SOB with excertion, stridor, wheezing, others Cardiovascular: reports: chest pain; denies: dizzy spells, diaphoresis, Dyspnea on exertion, edema, irregular heart beat, left arm pain, lightheadedness, palpitations, PND, syncope, others Gastrointestinal: denies: abdomen distended, abdominal pain, blood streaked bowels, constipated, diarrhea, dysphagia, difficulty swallowing, hematemesis, melena, nausea, poor appetite, poor fluid intake, rectal bleeding, rectal pain, vomiting, others Genitourinary: denies: abnormal vagina bleeding, burning, dyspareunia, dysuria, flank pain, frequency, hematuria, incontinence, pain, , vagina discharge, urgency, others Neurological: reports: headache; denies: dizziness, fainting, left sided numbness, left sided weakness, numbness, paresthesia, pre-existing deficit, right sided numbness, right sided weakness, seizure, speech problems, tingling, tremors, weakness, others Musculoskeletal: denies: back pain, gout, joint pain, joint swelling, muscle pain, muscle stiffness, neck pain, others Integumetry: denies: bruises, change in color, change in hair/nails, dryness, laceration, lesions, lumps, rash, wounds, others Allergic/Immunocompromised: denies: Difficulty Healing, Frequent Infections, Hives, Itching, others Hematologic/Lymphatic: denies: anemia, blood clots, easy bleeding, easy bruising, swollen glands, others Endocrine: denies: excessive hunger, excessive sweating, excessive thirst, excessive urination, flushing, intolerance to cold, intolerance to heat, unexplained weight gain, unexplained weight loss, others Psychiatric: denies: anxiety, bipolar disorder, depression, hopeless, panic disorder, schizophrenia, sleepless, suicidal, others All Other Systems: Reviewed and Negative Physical Exam General Appearance: Moderate Distress, Obese HEENT: Normal ENT Inspection, Pharynx Normal, TMs Normal Neck: Full Range of Motion, Non-Tender, Normal, Normal Inspection Respiratory: Chest Non-Tender, Lungs Clear, No Accessory Muscle Use, No Respiratory Distress, Normal Breath Sounds Cardiovascular: No Edema, No JVD, No Murmur, No Gallop, Normal Peripheral Pulses, Regular Rate/Rhythm Breast Exam: Deferred Gastrointestinal: No Organomegaly, Non Tender, No Pulsatile Mass, Normal Bowel Sounds, Soft Genitalia: Deferred Pelvic: Deferred Rectal: Deferred Extremities: No calf tenderness, Normal capillary refill, Normal inspection, Normal range of motion, Non-tender, No pedal edema Musculoskeletal : Apperance: Normal Neurologic: Alert, shoes hand sewer II-XII nml as Tested, Motor Weakness, Normal Affect, Normal Mood, No Sensory Deficits Cerebellar Function: Normal Reflexes: Normal Skin: Dry, Normal Color, Warm Lymphatic: No Adenopathy EKG EKG : Pulse Rate (adult): 82 [place]: Normal Cardiac Rhythm: NSR Block: None Hypertrophy: None ST: Normal Was a procedure done? Was a procedure done?: No CP Differential Dx Differential Diagnosis: Angina, [place], Pulmonary Embolus Differential Diagnosis: CHF Differential Diagnosis: Pericarditis X-Ray, Labs, Meds, VS Vital Signs Date Time Temp Pulse Resp B/P (MAP) Pulse Ox O2 Delivery O2 Flow Rate FiO2 12/24/24 19:40 82 12/24/24 19:27 82 12/24/24 19:25 98.7 82 20 208/121 (150) 97 98.7 Lab Test 12/24/24 19:23 Range/Units White Blood Count 6.0 4.4-10.8 10^3/uL Red Blood Count 4.48 4.0-5.20 10^6/uL Hemoglobin 11.9 L 12.2-16.2 g/dL Hematocrit 36.2 36.0-46.0 % Mean Corpuscular Volume 80.9 80.0-100.0 fL Mean Corpuscular Hemoglobin 26.5 L 28.0-32.0 pg Mean Corpuscular Hemoglobin Concent 32.8 32.0-36.0 g/dL Red Cell Distribution Width 14.6 H 11.8-14.3 % Platelet Count 233 140-450 10^3/uL Mean Platelet Volume 7.8 6.9-10.8 fL Neutrophils (%) (Auto) 48.6 37.0-80.0 % Lymphocytes (%) (Auto) 41.3 10.0-50.0 % Monocytes (%) (Auto) 4.1 0.0-12.0 % Eosinophils (%) (Auto) 5.5 0.0-7.0 % Basophils (%) (Auto) 0.5 0.0-2.0 % Neutrophils # (Auto) 2.9 1.6-8.6 10 ^3/uL Lymphocytes # (Auto) 2.5 0.4-5.4 10 ^3/uL Monocytes # (Auto) 0.2 0-1.3 10 ^3/uL Eosinophils # (Auto) 0.3 0-0.8 10 ^3/uL Basophils # (Auto) 0 0-0.2 10 ^3/uL Nucleated Red Blood Cells 0.2 % Sodium Level 140 136-145 mmol/L Potassium Level 3.7 3.5-5.1 mmol/L Chloride Level 107 98-107 mmol/L Carbon Dioxide Level 25 20-31 mmol/L Anion Gap 8 5-15 Blood Urea Nitrogen 9 9-23 mg/dL Creatinine 0.65 0.550-1.02 mg/dL Glomerular Filtration Rate Calc 107 >90 mL/min BUN/Creatinine Ratio 13.8 10.0-20.0 Serum Glucose 108 H 74-106 mg/dL Calcium Level 9.9 8.7-10.4 mg/dL Troponin I High Sensitivity < 3 L </=34 ng/L IV Hep-Lock is being established The patient is being given morphine 4 mg IV push for pain The patient was given Zofran 4 mg IV push for the nausea The patient's CBC is within limits The patient's troponin level is negative At this time, the patient is being admitted. The patient continues to have chest pain We feel that the patient's pain acute myocardial ischemia A cardiology consult The patient is also significantly hypertensive indicated hypertensive crisis The patient will be started on a nicardipine drip The patient is admitted Time of 1ST Reevaluation: 20:23 Reevaluation 1ST: Unchanged Patient Education/Counseling: Diagnosis, Treatment, Prognosis Family Education/Counseling: No Family Present Additional Information Reviewed patient's previous visit(s): 12/14/24 for chest pain The following tests were ordered, and results were reviewed by me: CBC, BMP, UA, Troponin, Chest XR, EKG Additional information was gathered from interviewing the following independent historian: EMS I reviewed and agreed with the following test results read by other provider: Chest XR I discussed treatments and results with medical personnel and: Patient Comprehensive systems review obtained and negative except for what is stated in the HPI. Departure 1 Departure Time of Disposition: 20:25 Impression: Primary Impression: Hypertensive crisis Additional Impression: Acute myocardial ischemia Disposition: ADMITTED INPATIENT Admit to: Tele Condition: Fair Critical Care Note Critical Care Time?: Yes (55 min-critical care time only) Stability Stability form required: Yes Unstable for transfer: Telemetry monitoring (Telemetry monitoring required), ED Physician Assesment (Clinical assesment) Heart Score Heart Score: Heart Score Response (Comments) Value History Highly Suspicious 2 EKG Normal 0 Age 45-64 1 Risk Factors >3 or Hx ASHD 2 Troponin Normal limit 0 Total 5 I personally scribed for CHELLY IHNES MD ([email or web address]) on 12/24/24 at 19:40. Electronically submitted by Berry Baptiste ([email or web address]). CHELLY HINES MD Dec 24, 2024 19:40
[2024-12-24 19:54] LABS: Basophils # (auto) 0 10 ^3/uL (0-0.2); Eosinophils # (auto) 0.3 10 ^3/uL (0-0.8); Eosinophils % (auto) 5.5 % (0.0-7.0); Hemoglobin 11.9 g/dL (12.2-16.2); Lymphocytes # (auto) 2.5 10 ^3/uL (0.4-5.4); Monocytes # (auto) 0.2 10 ^3/uL (0-1.3); Red Cell Distribution Width 14.6 % (11.8-14.3)
[2024-12-24 19:58] LABS: Basophils % (auto) 0.5 % (0.0-2.0); Hematocrit 36.2 % (36.0-46.0); Lymphocytes % (auto) 41.3 % (10.0-50.0); Mean Corpuscular Hemoglobin 26.5 pg (28.0-32.0); Mean Corpuscular Hgb Conc. 32.8 g/dL (32.0-36.0); Mean Corpuscular Volume 80.9 fL (80.0-100.0); Monocytes % (auto) 4.1 % (0.0-12.0); Neutrophils # (auto) 2.9 10 ^3/uL (1.6-8.6); Neutrophils % (auto) 48.6 % (37.0-80.0); Nucleated Red Blood Cells % 0.2 %; Platelet Count (auto) 233 10^3/uL (140-450); Red Blood Cells 4.48 10^6/uL (4.0-5.20)
[2024-12-24 20:00] LABS: Chloride 107 mmol/L (98-107); Potassium 3.7 mmol/L (3.5-5.1); Sodium 140 mmol/L (136-145)
[2024-12-24 20:01] LABS: Anion Gap 8 (5-15); Calcium 9.9 mg/dL (8.7-10.4); Carbon Dioxide 25 mmol/L (20-31)
[2024-12-24 20:06] LABS: BUN/Creatinine Ratio 13.8 (10.0-20.0); Blood Urea Nitrogen 9 mg/dL (9-23)
[2024-12-24 20:07] LABS: Glucose 108 mg/dL (74-106)
[2024-12-24 20:10] VITALS: PULSE 84; RESP 15; O2SAT 97
[2024-12-24] MEDS: ONDANSETRON HCL 4 MG/2 ML VIAL IV ONE (20:25)
[2024-12-24] MEDS: MORPHINE SULFATE 4 MG/ML SYR/VIAL IV ONE ×2 (20:26→21:21)
[2024-12-24] MEDS ORDERED: DOCUSATE SOD 100 MG CAP PO PRN (20:30)
[2024-12-24] MEDS ORDERED: HYDROcodone-ACET 5/325MG TAB PO PRN (20:30)
[2024-12-24] MEDS: NICARDIPINE HCL IN SODIUM CHLO 200 ML IV SCH (21:00)
[2024-12-24] MEDS: amLODIPine BESYLATE 5 MG TAB PO ONE (21:03)
--- NOTE | 2024-12-24 21:03 | DVH ---
CHEST RADIOGRAPH Indication: cp Technique: Single frontal view of the chest was obtained Comparison: XY CHEST PORTABLE on DOS: 12/14/24 FINDINGS: Lines and Tubes: None Lungs: No focal consolidation. Interstitial prominence. Pleura: No effusion. No pneumothorax. Cardiomediastinal contours: Mild cardiomegaly with Mild atherosclerotic calcification uncoiling of th e aorta. Bones: No acute osseous abnormality. Nonspecific 1.7 x 0.5 cm rectangular dense structure overlying the right scapula. IMPRESSION: Mild cardiomegaly with mild pulmonary vascular congestion.
[2024-12-24] MEDS: METOPROLOL TARTRATE 50 MG TAB PO SCH (21:56)
[2024-12-24] MEDS: SODIUM CHLOR 0.9% PF (SALINE LOCK) 10ML VIAL/SYR IV SCH (22:01)
[2024-12-24] MEDS: ALBUTEROL SULF 2.5 MG/0.5ML(0.5%) NEB SOLN NEB ONE (22:03)
[2024-12-24] MEDS: IPRATROPIUM BROM 0.5 MG/2.5ML INH SOL NEB ONE (22:03)
--- NOTE | 2024-12-24 22:13 | DVHHP2 ---
History of Present Illness Reason for Visit: Hypertensive crisis History of Present Illness The patient is a 49-year-old female morbidly obese with past medical history of asthma, arthritis, liver disease, [place], migraine headache, SVT, and hypertension who presented to [facility] ED with complaint of chest pain. Patient reports symptoms progressively get worse with headache, tight substernal chest pain, rating 7/10 numeric scale, generalized weakness, getting worse that prompted this visit. Patient was seen and evaluated in the ED, laboratory data shows WBC 6.0, platelets 233, sodium 140, potassium 3.7, BUN 9, creatinine 0.65, glucose 108, troponin < 3, blood pressure 208/121 trending down to 164/99, heart rate 82, temperature 98.7 F, O2 saturation 97% on oxygen. Patient was given hydralazine 10 mg IV x1, amlodipine 10 mg p.o. x1, please see medication orders section in the computer. On my assessment, patient denied chest pain, no headache, no dizziness, no diaphoresis, no shortness of breath, no nausea, no vomiting, no fever, no chills. Patient was admitted for further evaluation and medical management. Past Medical History Arthritis, Asthma, HTN, Liver, WA, Migraines, SVT Past Surgical History , Hysterectomy, Back surgeries Family History Reviewed, noncontributory to the management of this case. Past Social History The patient lives at home, quit smoking less than 1 year, denies alcohol or illicit drugs abuse. Review of Systems Constitutional: Yes: Weakness; No: Fever, Chills, Sweats, Malaise, Other Eyes: No: Pain, Vision change, Conjunctivae inflammation, Eyelid inflammation, Other, Redness ENT: No: Ear pain, Ear discharge, Nose pain, Nose discharge, Nose congestion, Mouth pain, Mouth swelling, Throat pain, Throat swelling, Other Respiratory: No: Cough, Dry, Shortness of breath, SOB with excertion, Wheezing, Hemoptysis, Pleuritic Pain, Sputum, Wheezing, Other Cardiovascular: Chest Pain, Other (Hypertension); No: Palpitations, Orthopnea, Paroxysmal Noc. Dyspnea, Edema, Lt Headedness Gastrointestinal: No: Nausea, Vomiting, Abdominal Pain, Diarrhea, Constipation, Melena, Hematochezia, Other Genitourinary: No Dysuria, No Frequency, No Incontinence, No Hematuria, No Retention, No Other Musculoskeletal: No: other, neck pain, shoulder pain, arm pain, back pain, hand pain, leg pain, foot pain Skin: No: Rash, Lesions, Jaundice, Bruising, Other Neurological: Other (Headache); No: Weakness, Numbness, Incoordination, Change in speech, Confusion, Seizures Allergies: Coded Allergies: Aspirin (Verified Allergy, Unknown, 12/14/24) Medications Current Medications Medications Dose Ordered Sig/Cezar Route Start Time Stop Time Status Last Admin Dose Admin Nicardipine/ Sodium Chloride 200 ml @ 50 mls/hr Q4H IV 12/24/24 21:00 Clopidogrel Bisulfate 75 mg DAILY PO 12/25/24 10:00 Hydralazine HCl 10 mg Q6HP PRN IV 12/24/24 20:30 Amlodipine Besylate 10 mg DAILY PO 12/25/24 10:00 Metoprolol Tartrate 50 mg BID PO 12/24/24 22:00 12/24/24 21:56 50 MG Sodium Chloride 10 ml Q8HR IV 12/24/24 22:00 12/24/24 22:01 10 ML Acetaminophen/ Hydrocodone Bitart 1 tab Q4HP PRN PO 12/24/24 20:30 Ondansetron HCl 4 mg Q4HP PRN IV 12/24/24 20:30 Docusate Sodium 100 mg BIDPRN PRN PO 12/24/24 20:30 Acetaminophen 325 mg Q6HP PRN PO 12/24/24 20:30 Morphine Sulfate 2 mg Q4HPRN PRN IV 12/24/24 21:30 Exam Vital Signs Vital Signs Date Time Temp Pulse Resp B/P (MAP) Pulse Ox O2 Delivery O2 Flow Rate FiO2 12/24/24 22:03 20 95 Room Air* 0 21 12/24/24 21:56 89 174/98 12/24/24 20:10 98.4 98.4 General Appearance: Alert, Oriented X3, Cooperative, No acute distress HEENT: Atraumatic, PERRLA, EOMI, Mucous membr. moist/pink Respiratory: Clear to auscultation, Normal air movement Cardiovascular: Regular rate, Normal S1, Normal S2, No murmurs Abdominal: Normal bowel sounds, Soft, No tenderness, No hepatospenomegaly, No masses Extremities: No clubbing, No cyanosis, No edema, Normal pulses, No tenderness/swelling Skin: No rashes, No breakdown, No significant lesion Neuro: Normal speech, Normal tone, Sensation intact, Cranial nerves 3-12 NL, Reflexes 2+, Other (Generalized weakness) Psych/Mental Status: Mental status NL, Mood NL Labs/Xrays Labs Test 12/24/24 20:29 12/24/24 19:23 Range/Units Troponin I High Sensitivity < 3 L </=34 ng/L White Blood Count 6.0 4.4-10.8 10^3/uL Red Blood Count 4.48 4.0-5.20 10^6/uL Hemoglobin 11.9 L 12.2-16.2 g/dL Hematocrit 36.2 36.0-46.0 % Mean Corpuscular Volume 80.9 80.0-100.0 fL Mean Corpuscular Hemoglobin 26.5 L 28.0-32.0 pg Mean Corpuscular Hemoglobin Concent 32.8 32.0-36.0 g/dL Red Cell Distribution Width 14.6 H 11.8-14.3 % Platelet Count 233 140-450 10^3/uL Mean Platelet Volume 7.8 6.9-10.8 fL Neutrophils (%) (Auto) 48.6 37.0-80.0 % Lymphocytes (%) (Auto) 41.3 10.0-50.0 % Monocytes (%) (Auto) 4.1 0.0-12.0 % Eosinophils (%) (Auto) 5.5 0.0-7.0 % Basophils (%) (Auto) 0.5 0.0-2.0 % Neutrophils # (Auto) 2.9 1.6-8.6 10 ^3/uL Lymphocytes # (Auto) 2.5 0.4-5.4 10 ^3/uL Monocytes # (Auto) 0.2 0-1.3 10 ^3/uL Eosinophils # (Auto) 0.3 0-0.8 10 ^3/uL Basophils # (Auto) 0 0-0.2 10 ^3/uL Nucleated Red Blood Cells 0.2 % Sodium Level 140 136-145 mmol/L Potassium Level 3.7 3.5-5.1 mmol/L Chloride Level 107 98-107 mmol/L Carbon Dioxide Level 25 20-31 mmol/L Anion Gap 8 5-15 Blood Urea Nitrogen 9 9-23 mg/dL Creatinine 0.65 0.550-1.02 mg/dL Glomerular Filtration Rate Calc 107 >90 mL/min BUN/Creatinine Ratio 13.8 10.0-20.0 Serum Glucose 108 H 74-106 mg/dL Calcium Level 9.9 8.7-10.4 mg/dL PATIENT: LINDA RIVAS SACCT: [id number] UNIT: [id number] : 1975 LOC: ER ROOM / BED: / AGE / SEX: 49 / F ADM STATUS: REG ER SERVICE 32 ORDERING PHYSICIAN: CHELLY HINES MD PROCEDURE(s): CXRP - CHEST PORTABLE REASON: cp ORDER NUMBER(s): [id number], ACCESSION NUMBER(s): [id number] CHEST RADIOGRAPH Indication: cp Technique: Single frontal view of the chest was obtained Comparison: XY CHEST PORTABLE on DOS: 12/14/24 FINDINGS: Lines and Tubes: None Lungs: No focal consolidation. Interstitial prominence. Pleura: No effusion. No pneumothorax. Cardiomediastinal contours: Mild cardiomegaly with Mild atherosclerotic calcification uncoiling of the aorta. Bones: No acute osseous abnormality. Nonspecific 1.7 x 0.5 cm rectangular dense structure overlying the right scapula. IMPRESSION: Mild cardiomegaly with mild pulmonary vascular congestion. Assessment/Plan Assessment/Plan Hypertensive crisis Morbid obesity Generalized weakness Acute myocardial ischemia Plan 1. Admit to telemetry unit 2. Breathing treatment 3. Pain control management 4. Management of fluids and electrolytes 5. Consultation for hospitalist/cardiology 6. Diagnostic tests head CT 7. DVT prophylaxis-on aspirin 8. Repeat labs CBC, CMP in a.m. 9. Continue with current medical management 10. Treatment plan discussed with patient and RN. Patient verbalized understanding. Plan discussed with: Patient, Other (RN) My Orders Orders - DEJON BELCHER DNP Procedure Category Date Status Time Clopidogrel Bisulfate PHA 12/25/24 In Process (Plavix) 10:00 Hydralazine Injection PHA 12/24/24 In Process (Apresoline Inject 20:30 Amlodipine Tablet PHA 12/25/24 In Process (Norvasc Tablet) 10:00 Metoprolol Tartrate PHA 12/24/24 In Process Tablet (Lopressor Ta 22:00 * Cardiology Consult CONS 12/24/24 Transmitted 20:27 Allergies PEYTON 12/24/24 In Process 20:27 Code Status CODE 12/24/24 Transmitted 20:27 Sodium Chloride Lock PHA 12/24/24 In Process (Saline Lock Ns) 22:00 Oxygen Per Hour RT 12/24/24 Transmitted 20:27 Hydrocodone-Acet PHA 12/24/24 In Process 5/325mg Tab ([place] 20:30 Ondansetron Hcl PHA 12/24/24 In Process (Zofran) 20:30 Docusate Sodium PHA 12/24/24 In Process Capsule (Colace 20:30 Complete Blood Count LAB 12/25/24 Verified 04:00 Comprehensive LAB 12/25/24 Verified Metabolic Panel 04:00 Cardiac DIET 12/25/24 Transmitted Diet-2gna,Lofat,Lochol Breakfast Condition: Serious PEYTON 12/24/24 In Process 20:27 Acetaminophen Tablet PHA 12/24/24 In Process (Tylenol Tablet) 20:30 Bedrest With Bathroom PEYTON 12/24/24 In Process Privileg 20:27 Maintain Bed Rest PEYTON 12/24/24 In Process 20:27 Sequential PEYTON 12/24/24 In Process Compression Device Morphine Sulfate PHA 12/24/24 In Process Injection 21:30 Problem List: (1) Hypertensive crisis (2) Morbid obesity (3) Generalized weakness (4) Acute myocardial ischemia Date of Service: Dec 24, 2024 Billing Provider: DEJON BELCHER DNP Common Visit Codes: [id number] INP/OBS CARE (HIGH) DEJON BELCHER DNP Dec 24, 2024 22:13
[2024-12-24] MEDS ORDERED: NITROGLYCERIN 0.4 MG SL TAB SL PRN (22:15)
[2024-12-24] MEDS ORDERED: MORPHINE SULFATE 4 MG/ML SYR/VIAL IV PRN (22:30)
[2024-12-25] MEDS: hydrALAZINE HCL 20 MG/ML VL IV PRN (00:16)
[2024-12-25 01:41] VITALS: BP 132/63; PULSE 85; RESP 16; TEMP 98.2; O2SAT 98
[2024-12-25 06:34] LABS: Basophils # (auto) 0 10 ^3/uL (0-0.2); Basophils % (auto) 0.4 % (0.0-2.0); Eosinophils # (auto) 0.3 10 ^3/uL (0-0.8); Eosinophils % (auto) 5.9 % (0.0-7.0); Hematocrit 35.3 % (36.0-46.0); Hemoglobin 11.8 g/dL (12.2-16.2); Lymphocytes # (auto) 1.8 10 ^3/uL (0.4-5.4); Lymphocytes % (auto) 36.1 % (10.0-50.0); Mean Corpuscular Hemoglobin 27.2 pg (28.0-32.0); Mean Corpuscular Hgb Conc. 33.5 g/dL (32.0-36.0); Mean Corpuscular Volume 81.2 fL (80.0-100.0); Monocytes # (auto) 0.3 10 ^3/uL (0-1.3); Monocytes % (auto) 6.6 % (0.0-12.0); Neutrophils # (auto) 2.5 10 ^3/uL (1.6-8.6); Platelet Count (auto) 245 10^3/uL (140-450); Red Blood Cells 4.35 10^6/uL (4.0-5.20); Red Cell Distribution Width 14.2 % (11.8-14.3); White Blood Cell 4.9 10^3/uL (4.4-10.8)
[2024-12-25 06:52] LABS: Alanine Aminotransferase 13 U/L (7-40); Albumin 4.2 g/dL (3.2-4.8); Alkaline Phosphatase 80 U/L (46-116); Anion Gap 5 (5-15); Aspartate Aminotransferase < 8 U/L (13-40); Blood Urea Nitrogen 9 mg/dL (9-23); Calcium 9.9 mg/dL (8.7-10.4); Carbon Dioxide 29 mmol/L (20-31); Chloride 107 mmol/L (98-107); Glucose 113 mg/dL (74-106); Potassium 4.2 mmol/L (3.5-5.1); Sodium 141 mmol/L (136-145); Total Protein 7.9 g/dL (5.7-8.2)
[2024-12-25 06:53] LABS: Bilirubin, Total 0.7 mg/dL (0.2-1.0)
[2024-12-25] MEDS: amLODIPine BESYLATE 5 MG TAB PO SCH (09:33)
[2024-12-25] MEDS: CLOPIDOGREL BISULFATE 75 MG TAB PO SCH (09:54)
[2024-12-25 10:01] LABS: Urine Bacteria None Seen /hpf (None Seen)
[2024-12-25 10:40] LABS: Urine Blood Negative /uL (Negative); Urine Clarity Turbid (Clear); Urine Color Light-Yellow (Yellow); Urine Mucus FEW (None Seen); Urine Protein, UAD Negative (Negative); Urine Specific Gravity 1.022 (1.001-1.035); Urine Squamous Epithelial Cell FEW /hpf (<5); Urine Urobilinogen Normal (Negative); Urine WBC 6 /HPF (0-5); Urine pH 5.5 (5.0-9.0)
--- NOTE | 2024-12-25 11:12 | DVHINCON2 ---
Date Seen: Dec 25, 2024 Referring Physician RAJESH Abel Reason for Consultation Hypertensive crisis History of Present Illness This is a 49-year-old female patient who presents to the emergency room with chief complaint of headache and chest pain. Of note, the patient was recently seen at this facility for similar complaints and discharged on 12/16/24. She now returns. The patient reports that she woke up on the day of admission with a migraine and realized she was having sensitivity to light and sound. She also mentions that she began having chest pain at about 9:30 a.m. on the day of emergency room arrival. She describes it as unprovoked, intermittent, tight in nature, and midsternal without radiation. She denies any associated symptoms. Initial twelve lead electrocardiogram reveals normal sinus rhythm without any significant ST segment changes. Serial troponin levels have been negative. Significant past medical history includes hypertension, paroxysmal SVT, asthma, migraines, lumbar spinal stenosis, uterine fibroids status post hysterectomy, tobacco use and morbid obesity. The patient admits that she has been off of her antihypertensives for over one year. The patient reports that she was living in [place] and just moved back to [place] approximately two weeks ago. She states that she has been having issues with her insurance not covering prescription medications, and is unable to pay [id number]. Past Medical History Past medical history reviewed. No other significant than mentioned above. Past Surgical History Hysterectomy Bilateral tubal ligation Family History: Asthma G8 MOTHER Diabetes mellitus G8 MOTHER Hypertension G8 MOTHER G8 FATHER Family History Family history reviewed. Social History Patient has a 11.5 pack-year history, quit smoking in June of 2024 Denies any illicit drug use Denies any alcohol use Allergies: Coded Allergies: Aspirin (Verified Allergy, Unknown, 12/14/24) Home Meds Active Scripts Methocarbamol (Methocarbamol) 500 Mg Tab, 500 MG PO QID for 30 Days, #120 TAB Prov:VANNA BALLARD RESIDENT 12/16/24 Losartan Potassium (Losartan Potassium) 50 Mg Tab, 50 MG PO DAILY for 30 Days, #30 TAB Prov:VANNA BALLARD RESIDENT 12/16/24 Hctz (Hydrochlorothiazide) 25 Mg Tab, 12.5 MG PO DAILY for 30 Days, #30 TAB Prov:VANNA BALLARD 12/16/24 Acetaminophen (Acetaminophen) 325 Mg Tab, 325 MG PO Q4HPRN PRN for 30 Days, #150 TAB Prov:VANNA BALLARD RESIDENT 12/16/24 Gabapentin (Gabapentin) 100 Mg Cap, 1 CAP PO TID for 90 Days, #90 CAP 2 Refills Prov:CHELSIE DORAN MD 12/16/24 Hydrocodone-Acetaminophen (Hydrocodone Bitartrate/AC 5-325 mg) 1 Tab Tab, 1 TAB PO TID PRN for 7 Days, #21 TAB Prov:CHELSIE DORAN MD 12/16/24 Home Meds Home medications reviewed. Current Medications Current Medications Medications (Trade) Dose Ordered Sig/Cezar Route PRN Reason Start Time Stop Time Status Last Admin Nicardipine/ Sodium Chloride 200 ml @ 50 mls/hr Q4H IV 12/24/24 21:00 Clopidogrel Bisulfate (Plavix) 75 mg DAILY PO 12/25/24 10:00 12/25/24 09:54 Hydralazine HCl (Apresoline Injection) 10 mg Q6HP PRN IV SBP>150 12/24/24 20:30 12/25/24 00:16 Amlodipine Besylate (Norvasc Tablet) 10 mg DAILY PO 12/25/24 10:00 12/25/24 09:33 Metoprolol Tartrate (Lopressor Tablet) 50 mg BID PO 12/24/24 22:00 12/25/24 09:55 Sodium Chloride (Saline Lock Ns) 10 ml Q8HR IV 12/24/24 22:00 12/25/24 05:11 Acetaminophen/ Hydrocodone Bitart ([place] 5/325MG Tab) 1 tab Q4HP PRN PO MODERATE PAIN (4-6 PAIN SCALE) 12/24/24 20:30 Ondansetron HCl (Zofran) 4 mg Q4HP PRN IV NAUSEA / VOMITING 12/24/24 20:30 Docusate Sodium (Colace Capsule) 100 mg BIDPRN PRN PO FOR CONSTIPATION 12/24/24 20:30 Acetaminophen (Tylenol Tablet) 325 mg Q6HP PRN PO PAIN SCALE 1-3 OR TEMP>100.4 12/24/24 20:30 Morphine Sulfate 2 mg Q4HPRN PRN IV SEVERE PAIN (7-10 PAIN SCALE) 12/24/24 21:30 Nitroglycerin (Ntrostat Sublingual) 0.4 mg Q5MINP PRN SL FOR CHEST PAIN 12/24/24 22:15 Morphine Sulfate 2 mg Q30M PRN IV FOR CHEST PAIN 12/24/24 22:30 Review of Systems Constitutional: No symptom reported Ears, Nose, & Throat: No symptom reported Eyes: No symptom reported Neurological: Headache Pulmonary/Respiratory: No symptoms reported Cardiovascular: Chest pain Gastrointestinal: No symptom reported Genitourinary: No symptom reported Musculoskeletal: No symptom reported Skin: No symptom reported Psychiatric: No symptom reported Endocrine: No symptom reported Hematologic/Lymphatic: No symptom reported Vital Signs Vital Signs Date Time Temp Pulse Resp B/P (MAP) Pulse Ox O2 Delivery O2 Flow Rate FiO2 12/25/24 09:55 82 132/63 12/25/24 01:41 16 98 Nasal Cannula* 2 28 12/25/24 01:41 98.2 98.2 Physical Exam General Appearance: Cooperative. Morbidly obese Pulmonary/Respiratory: Clear, bilateral breaths sounds. Cardiovascular/Chest: Regular rate and rhythm. Peripheral Pulses: 2+ Radial (R). 2+ Radial (L). 2+ Pedal (R). 2+ Pedal (L) Abdominal Exam: Normal bowel sounds. Ankle Exam: Negative ankle edema Lower extremities: Negative lower extremity edema Neuro/Mental Status: A/OX4, coherent. Thoughts/Psych: Normal thought pattern. Appropriate mood and affect. Good judgment and insight. Appearance: No acute distress. Skin Exam: Normal inspection. Normal color. Warm and dry. Labs/Diagnostic Data Labs Test 12/25/24 09:37 12/25/24 05:58 12/24/24 22:51 Range/Units Urine Color Light-yellow Yellow Urine Clarity Turbid H Clear Urine pH 5.5 5.0-9.0 Urine Specific [place] 1.022 1.001-1.035 Urine Protein Negative Negative Urine Ketones Negative Negative Urine Blood Negative Negative /uL Urine Nitrite Negative Negative Urine Bilirubin Negative Negative Urine Urobilinogen Normal Negative mg/dL Urine Leukocyte Esterase 1+ Negative /uL Urine RBC 2 0 - 4 /hpf Urine Microscopic WBC 6 H 0-5 /HPF Urine Squamous Epithelial Cells Few <5 /hpf Urine Bacteria None seen None Seen /hpf Urine Mucus Few None Seen Urine Glucose Normal Normal mg/dL White Blood Count 4.9 4.4-10.8 10^3/uL Red Blood Count 4.35 4.0-5.20 10^6/uL Hemoglobin 11.8 L 12.2-16.2 g/dL Hematocrit 35.3 L 36.0-46.0 % Mean Corpuscular Volume 81.2 80.0-100.0 fL Mean Corpuscular Hemoglobin 27.2 L 28.0-32.0 pg Mean Corpuscular Hemoglobin Concent 33.5 32.0-36.0 g/dL Red Cell Distribution Width 14.2 11.8-14.3 % Platelet Count 245 140-450 10^3/uL Mean Platelet Volume 7.8 6.9-10.8 fL Neutrophils (%) (Auto) 51.0 37.0-80.0 % Lymphocytes (%) (Auto) 36.1 10.0-50.0 % Monocytes (%) (Auto) 6.6 0.0-12.0 % Eosinophils (%) (Auto) 5.9 0.0-7.0 % Basophils (%) (Auto) 0.4 0.0-2.0 % Neutrophils # (Auto) 2.5 1.6-8.6 10 ^3/uL Lymphocytes # (Auto) 1.8 0.4-5.4 10 ^3/uL Monocytes # (Auto) 0.3 0-1.3 10 ^3/uL Eosinophils # (Auto) 0.3 0-0.8 10 ^3/uL Basophils # (Auto) 0 0-0.2 10 ^3/uL Nucleated Red Blood Cells 0.0 % Sodium Level 141 136-145 mmol/L Potassium Level 4.2 3.5-5.1 mmol/L Chloride Level 107 98-107 mmol/L Carbon Dioxide Level 29 20-31 mmol/L Anion Gap 5 5-15 Blood Urea Nitrogen 9 9-23 mg/dL Creatinine 0.82 0.550-1.02 mg/dL Glomerular Filtration Rate Calc 87 >90 mL/min BUN/Creatinine Ratio 11.0 10.0-20.0 Serum Glucose 113 H 74-106 mg/dL Calcium Level 9.9 8.7-10.4 mg/dL Total Bilirubin 0.7 0.2-1.0 mg/dL Aspartate Amino Transferase (AST) < 8 L 13-40 U/L Alanine Aminotransferase (ALT) 13 7-40 U/L Alkaline Phosphatase 80 46-116 U/L Total Protein 7.9 5.7-8.2 g/dL Albumin 4.2 3.2-4.8 g/dL Troponin I High Sensitivity < 3 L </=34 ng/L Assessment Chest pain, rule out coronary ischemia Hypertensive urgency, resolved History of SVT Asthma Morbid obesity History of tobacco use Plan/Recommendation We will continue with the following plan/recommendations (Dr. Torres): * Transthoracic echocardiogram done on 12/16/2024 reveals EF 60% * Chest pain protocol * HEART score: 2 points * Aggressive blood pressure control * Close Cardiac surveillance * Nuclear scan Patient seen and examined at bedside with . Given the patient's clinical presentation and comorbidities, we will offer the patient a nuclear stress test. Plan discussed with the patient, who is agreeable. We will schedule the patient for a nuclear stress test on 12/27/2024. Thank you for allowing us to care for this patient. Please call with any questions or concerns. Critical care time spent: 43 minutes This medical document was created using an electronic medical record system with voice recognition software and computerized dictation system. Although this document has been carefully reviewed, there might still be some phonetic and typographical errors. Occasional wrong-word or ``sound-alike substitutions may have occurred due to the inherent limitations of voice recognition software. These areas are purely typographical due to imperfections of the software programs and do not reflect any compromise in the patient's medical care. Please read the chart carefully and recognize, using context, where these substitutions have occurred. Plan discussed with: Patient NYHA Physical activity limitations: NA Date of Service: Dec 25, 2024 Billing Provider: PATRICA WALDEN Cardiology Common Codes: [id number] INP/OBS CARE (High) Cardiology Consultation Codes: [id number] CONSULT <45MIN PATRICA WALDEN Dec 25, 2024 11:12
[2024-12-25 12:32] LABS: Triglycerides 115 mg/dL (< 150)
[2024-12-25 12:34] LABS: Cholesterol 167 mg/dL (< 200); HDL Cholesterol 43 mg/dL (40-59); LDL Cholesterol 107 mg/dL (< 100)
[2024-12-25 12:43] LABS: Amphetamine Screen, Urine Neg (NEGATIVE); Barbiturate Scree,Urine Neg (NEGATIVE); Benzodiazephine Screen, Urine Neg (NEGATIVE); Cannabinoid Screen, Urine Neg (NEGATIVE); Cocaine Screen, Urine Neg (NEGATIVE); Opiate Scree,Urine Pos (NEGATIVE); Phencyclidine Screen, Urine Neg (NEGATIVE)
[2024-12-25 16:35] VITALS: BP 166/86; PULSE 81; RESP 18; TEMP 98.8; O2SAT 97
[2024-12-25] MEDS: MORPHINE SULFATE 4 MG/ML SYR/VIAL IV PRN (17:30)
--- NOTE | 2024-12-25 18:42 | DVHPN2 ---
Subjective I am assuming the care of the patient from today onwards. Patient is here for hypertensive urgency and chest pain rule out MD. Reviewed: Care Plan Changes from previous H/P or p: No Changes Eyes: No Pain, No Vision change, No Conjunctivae inflammation, No Eyelid inflammation, No Other, No Redness ENT: No Ear pain, No Ear discharge, No Nose pain, No Nose discharge, No Nose congestion, No Mouth pain, No Mouth swelling, No Throat pain, No Throat swelling, No Other Cardiovascular: Chest Pain; No Palpitations, No Orthopnea, No Paroxysmal Noc. Dyspnea, No Edema, No Lt Headedness; Other (Hypertension) Respiratory: No Cough, No Dry, No Shortness of breath, No SOB with excertion, No Wheezing, No Hemoptysis, No Pleuritic Pain, No Sputum, No Other Gastrointestinal: No Nausea, No Vomiting, No Abdominal Pain, No Diarrhea, No Constipation, No Melena, No Hematochezia, No Other Genitourinary: No Dysuria, No Frequency, No Incontinence, No Hematuria, No Retention, No Other Musculoskeletal: No other, No neck pain, No shoulder pain, No arm pain, No back pain, No hand pain, No leg pain, No foot pain Skin: No Rash, No Lesions, No Jaundice, No Bruising, No Other Objective Vitals Vital Signs Date Time Temp Pulse Resp B/P (MAP) Pulse Ox O2 Delivery O2 Flow Rate FiO2 12/25/24 17:30 81 18 166/86 12/25/24 16:35 98.8 97 98.8 12/25/24 01:41 Nasal Cannula* 2 28 Exam HEENT pupils are reactive Neck is supple CV is S1-S2 regular rate and rhythm Respiratory are clear GI positive bowel sound Extremity no edema [employer]OR[employer] O[employer] no motor deficit. Medications Current Medications Medications Dose Ordered Sig/Cezar Route Start Time Stop Time Status Last Admin Dose Admin Clopidogrel Bisulfate 75 mg DAILY PO 12/25/24 10:00 12/25/24 09:54 75 MG Hydralazine HCl 10 mg Q6HP PRN IV 12/24/24 20:30 12/25/24 17:30 10 MG Amlodipine Besylate 10 mg DAILY PO 12/25/24 10:00 12/25/24 09:33 10 MG Sodium Chloride 10 ml Q8HR IV 12/24/24 22:00 12/25/24 16:21 10 ML Acetaminophen/ Hydrocodone Bitart 1 tab Q4HP PRN PO 12/24/24 20:30 Ondansetron HCl 4 mg Q4HP PRN IV 12/24/24 20:30 Docusate Sodium 100 mg BIDPRN PRN PO 12/24/24 20:30 Acetaminophen 325 mg Q6HP PRN PO 12/24/24 20:30 Morphine Sulfate 2 mg Q4HPRN PRN IV 12/24/24 21:30 12/25/24 17:30 2 MG Nitroglycerin 0.4 mg Q5MINP PRN SL 12/24/24 22:15 Morphine Sulfate 2 mg Q30M PRN IV 12/24/24 22:30 Chlorthalidone 25 mg DAILY@BREAKFAST PO 12/26/24 08:00 Laboratory Results Laboratory Tests 12/25/24 05:58 Chemistry Test 12/24/24 19:23 12/25/24 05:58 Calcium Level 9.9 mg/dL (8.7-10.4) 9.9 mg/dL (8.7-10.4) Albumin 4.2 g/dL (3.2-4.8) Total Protein 7.9 g/dL (5.7-8.2) Lipid panel Test 12/25/24 05:58 Cholesterol Level 167 mg/dL (< 200) HDL Cholesterol 43 mg/dL (40-59) Triglycerides Level 115 mg/dL (< 150) LFT Test 12/25/24 05:58 Alanine Aminotransferase (ALT) 13 U/L (7-40) Alkaline Phosphatase 80 U/L (46-116) Aspartate Amino Transferase (AST) < 8 U/L (13-40) L Total Bilirubin 0.7 mg/dL (0.2-1.0) HgA1c, TSH Test 12/25/24 05:58 Hemoglobin A1c 6.2 % A1C (<5.7) H Thyroid Stimulating Hormone (TSH) 1.56 uIU/mL (0.55-4.78) Urinalysis Test 12/25/24 09:37 Urine Color Light-yellow (Yellow) Urine Clarity Turbid (Clear) H Urine pH 5.5 (5.0-9.0) Urine Specific [place] 1.022 (1.001-1.035) Urine Protein Negative (Negative) Urine Ketones Negative (Negative) Urine Blood Negative /uL (Negative) Urine Nitrite Negative (Negative) Urine Bilirubin Negative (Negative) Urine Urobilinogen Normal mg/dL (Negative) Urine Leukocyte Esterase 1+ /uL (Negative) Urine RBC 2 /hpf (0 - 4) Urine Microscopic WBC 6 /HPF (0-5) H Urine Squamous Epithelial Cells Few /hpf (<5) Urine Bacteria None seen /hpf (None Seen) Urine Mucus Few (None Seen) Urine Glucose Normal mg/dL (Normal) Assessment/Plan Assessment/Plan 68-year-old female with a known history of hypertension, chronic asthma, morbid obesity class III who initially presented to the hospital with chest pain and uncontrolled blood pressure found to have 1. Chest pain rule out acute MD 2. Hypertensive urgency 3. Chronic asthma 4. Chronic tobacco use disorder 5. Morbid obesity class III -2D echo cardiology consultation resume home medications, -cardiology planning for nuclear stress test. Plan discussed with: Patient Date of Service: Dec 25, 2024 Billing Provider: HALLEY ORTIZ MD Common Visit Codes: [id number] INP/OBS CARE(MOD) HALLEY ORTIZ MD Dec 25, 2024 18:42
[2024-12-25 20:00] VITALS: PULSE 95; PULSE 96; RESP 18; O2SAT 98
[2024-12-25 21:00] VITALS: BP 149/70; PULSE 95; RESP 18; TEMP 97.7; O2SAT 98
[2024-12-26] VITALS (9 sets, daily range): BP systolic 103–142; BP diastolic 45–80; PULSE 79–99; RESP 17–19; TEMP 98.1–98.9; O2SAT 95–98
--- NOTE | 2024-12-26 00:11 | DVHINCON2 ---
Date Seen: Dec 25, 2024 Referring Physician RAJESH Abel Reason for Consultation Hypertensive crisis History of Present Illness This is a 49-year-old female with a past medical history of hypertension, paroxysmal SVT, asthma, migraines, lumbar spinal stenosis, uterine fibroids status post hysterectomy, tobacco use and morbid obesity who presents to the emergency room with a complaint of headache and chest pain. Of note, the patient was recently seen at this facility for similar complaints and discharged on 12/16/24. She now returns. The patient reports that she woke up on the day of admission with a migraine and realized she was having sensitivity to light and sound. She also mentions that she began having chest pain at about 9:30 a.m. on the day of emergency room arrival. She describes it as unprovoked, intermittent, tight in nature, and midsternal without radiation. She denies any associated symptoms. Initial twelve lead electrocardiogram reveals normal sinus rhythm without any significant ST segment changes. Serial troponin levels have been negative. The patient admits that she has been off of her antihypertensives for over one year. The patient reports that she was living in [place] and just moved back to [place] approximately two weeks ago. She states that she has been having issues with her insurance not covering prescription medications, and is unable to pay [id number]. HGB A1C 6.2. Chest x-ray showed mild cardiomegaly with mild pulmonary vascular congestion. Patient was admitted to the hospital. I am asked to consult on this patient. Past Medical History Past medical history reviewed. No other significant than mentioned above. Past Surgical History Hysterectomy Bilateral tubal ligation Family History: Asthma G8 MOTHER Diabetes mellitus G8 MOTHER Hypertension G8 MOTHER G8 FATHER Allergies: Coded Allergies: Aspirin (Verified Allergy, Unknown, 12/14/24) Home Meds Active Scripts Methocarbamol (Methocarbamol) 500 Mg Tab, 500 MG PO QID for 30 Days, #120 TAB Prov:VANNA BALLARD RESIDENT 12/16/24 Losartan Potassium (Losartan Potassium) 50 Mg Tab, 50 MG PO DAILY for 30 Days, #30 TAB Prov:VANNA BALLARD RESIDENT 12/16/24 Hctz (Hydrochlorothiazide) 25 Mg Tab, 12.5 MG PO DAILY for 30 Days, #30 TAB Prov:VANNA BALLARD RESIDENT 12/16/24 Acetaminophen (Acetaminophen) 325 Mg Tab, 325 MG PO Q4HPRN PRN for 30 Days, #150 TAB Prov:VANNA BALLARD RESIDENT 12/16/24 Gabapentin (Gabapentin) 100 Mg Cap, 1 CAP PO TID for 90 Days, #90 CAP 2 Refills Prov:CHELSIE DORAN MD 12/16/24 Hydrocodone-Acetaminophen (Hydrocodone Bitartrate/AC 5-325 mg) 1 Tab Tab, 1 TAB PO TID PRN for 7 Days, #21 TAB Prov:CHELSIE DORAN MD 12/16/24 Current Medications Current Medications Medications (Trade) Dose Ordered Sig/Cezar Route PRN Reason Start Time Stop Time Status Last Admin Nicardipine/ Sodium Chloride 200 ml @ 50 mls/hr Q4H IV 12/24/24 21:00 12/25/24 12:03 DC Clopidogrel Bisulfate (Plavix) 75 mg DAILY PO 12/25/24 10:00 12/25/24 09:54 Hydralazine HCl (Apresoline Injection) 10 mg Q6HP PRN IV SBP>150 12/24/24 20:30 12/25/24 00:16 Amlodipine Besylate (Norvasc Tablet) 10 mg DAILY PO 12/25/24 10:00 12/25/24 09:33 Metoprolol Tartrate (Lopressor Tablet) 50 mg BID PO 12/24/24 22:00 12/25/24 12:03 DC 12/25/24 09:55 Sodium Chloride (Saline Lock Ns) 10 ml Q8HR IV 12/24/24 22:00 12/25/24 05:11 Acetaminophen/ Hydrocodone Bitart ([place] 5/325MG Tab) 1 tab Q4HP PRN PO MODERATE PAIN (4-6 PAIN SCALE) 12/24/24 20:30 Ondansetron HCl (Zofran) 4 mg Q4HP PRN IV NAUSEA / VOMITING 12/24/24 20:30 Docusate Sodium (Colace Capsule) 100 mg BIDPRN PRN PO FOR CONSTIPATION 12/24/24 20:30 Acetaminophen (Tylenol Tablet) 325 mg Q6HP PRN PO PAIN SCALE 1-3 OR TEMP>100.4 12/24/24 20:30 Morphine Sulfate 2 mg Q4HPRN PRN IV SEVERE PAIN (7-10 PAIN SCALE) 12/24/24 21:30 Nitroglycerin (Ntrostat Sublingual) 0.4 mg Q5MINP PRN SL FOR CHEST PAIN 12/24/24 22:15 Morphine Sulfate 2 mg Q30M PRN IV FOR CHEST PAIN 12/24/24 22:30 Chlorthalidone (Chlorthalidone) 25 mg DAILY@BREAKFAST PO 12/26/24 08:00 Review of Systems Constitutional: No symptom reported Ears, Nose, & Throat: No symptom reported Eyes: No symptom reported Neurological: Headache Pulmonary/Respiratory: No symptoms reported Cardiovascular: Chest pain Gastrointestinal: No symptom reported Genitourinary: No symptom reported Musculoskeletal: No symptom reported Skin: No symptom reported Psychiatric: No symptom reported Endocrine: No symptom reported Hematologic/Lymphatic: No symptom reported Vital Signs Vital Signs Date Time Temp Pulse Resp B/P (MAP) Pulse Ox O2 Delivery O2 Flow Rate FiO2 12/25/24 09:55 82 132/63 12/25/24 01:41 16 98 Nasal Cannula* 2 28 12/25/24 01:41 98.2 98.2 Physical Exam GENERAL: Alert and oriented x 3. No acute distress. Morbidly obese. EYES: PERRL, EOMI. Anicteric. HENT: Moist mucous membranes. LUNGS: Clear to auscultation bilaterally. CARDIOVASCULAR: Regular rate and rhythm. ABDOMEN: Soft, nontender and nondistended. EXTREMITIES: No edema. NEUROLOGIC: No focal neurological deficits. SKIN: Warm, dry. Labs/Diagnostic Data Labs Test 12/25/24 09:37 12/25/24 05:58 12/24/24 22:51 Range/Units Urine Color Light-yellow Yellow Urine Clarity Turbid H Clear Urine pH 5.5 5.0-9.0 Urine Specific [place] 1.022 1.001-1.035 Urine Protein Negative Negative Urine Ketones Negative Negative Urine Blood Negative Negative /uL Urine Nitrite Negative Negative Urine Bilirubin Negative Negative Urine Urobilinogen Normal Negative mg/dL Urine Leukocyte Esterase 1+ Negative /uL Urine RBC 2 0 - 4 /hpf Urine Microscopic WBC 6 H 0-5 /HPF Urine Squamous Epithelial Cells Few <5 /hpf Urine Bacteria None seen None Seen /hpf Urine Mucus Few None Seen Urine Glucose Normal Normal mg/dL Urine Opiates Screen Pos NEGATIVE Urine Fentanyl Screen Neg NEGATIVE Urine Barbiturates Screen Neg NEGATIVE Urine Phencyclidine Screen Neg NEGATIVE Urine Amphetamines Screen Neg NEGATIVE Urine Benzodiazepines Screen Neg NEGATIVE Urine Cocaine Screen Neg NEGATIVE Urine Cannabinoids Screen Neg NEGATIVE White Blood Count 4.9 4.4-10.8 10^3/uL Red Blood Count 4.35 4.0-5.20 10^6/uL Hemoglobin 11.8 L 12.2-16.2 g/dL Hematocrit 35.3 L 36.0-46.0 % Mean Corpuscular Volume 81.2 80.0-100.0 fL Mean Corpuscular Hemoglobin 27.2 L 28.0-32.0 pg Mean Corpuscular Hemoglobin Concent 33.5 32.0-36.0 g/dL Red Cell Distribution Width 14.2 11.8-14.3 % Platelet Count 245 140-450 10^3/uL Mean Platelet Volume 7.8 6.9-10.8 fL Neutrophils (%) (Auto) 51.0 37.0-80.0 % Lymphocytes (%) (Auto) 36.1 10.0-50.0 % Monocytes (%) (Auto) 6.6 0.0-12.0 % Eosinophils (%) (Auto) 5.9 0.0-7.0 % Basophils (%) (Auto) 0.4 0.0-2.0 % Neutrophils # (Auto) 2.5 1.6-8.6 10 ^3/uL Lymphocytes # (Auto) 1.8 0.4-5.4 10 ^3/uL Monocytes # (Auto) 0.3 0-1.3 10 ^3/uL Eosinophils # (Auto) 0.3 0-0.8 10 ^3/uL Basophils # (Auto) 0 0-0.2 10 ^3/uL Nucleated Red Blood Cells 0.0 % Sodium Level 141 136-145 mmol/L Potassium Level 4.2 3.5-5.1 mmol/L Chloride Level 107 98-107 mmol/L Carbon Dioxide Level 29 20-31 mmol/L Anion Gap 5 5-15 Blood Urea Nitrogen 9 9-23 mg/dL Creatinine 0.82 0.550-1.02 mg/dL Glomerular Filtration Rate Calc 87 >90 mL/min BUN/Creatinine Ratio 11.0 10.0-20.0 Serum Glucose 113 H 74-106 mg/dL Hemoglobin A1c 6.2 H <5.7 % A1C Calcium Level 9.9 8.7-10.4 mg/dL Total Bilirubin 0.7 0.2-1.0 mg/dL Aspartate Amino Transferase (AST) < 8 L 13-40 U/L Alanine Aminotransferase (ALT) 13 7-40 U/L Alkaline Phosphatase 80 46-116 U/L Total Protein 7.9 5.7-8.2 g/dL Albumin 4.2 3.2-4.8 g/dL Triglycerides Level 115 < 150 mg/dL Cholesterol Level 167 < 200 mg/dL LDL Cholesterol 107 H < 100 mg/dL HDL Cholesterol 43 40-59 mg/dL Thyroid Stimulating Hormone (TSH) 1.56 0.55-4.78 uIU/mL Beta HCG, Quantitative 1.2 L 1.5-4.2 mIU/mL Troponin I High Sensitivity < 3 L </=34 ng/L Assessment Chest pain, rule out coronary ischemia. Hypertensive urgency, resolved. History of SVT. Asthma. Morbid obesity. History of tobacco use. Plan/Recommendation I agree with your ongoing assessment and care of plan. Patient has been seen by Leora Dominguez NP on my behalf, her and I discussed the plan with the patient. Transthoracic echocardiogram done on 12/16/2024 reveals EF 60%. Chest pain protocol. HEART score: 2 points. Aggressive blood pressure control. Close Cardiac surveillance. Nuclear scan. Additional plan as per the hospital course. Plan discussed with: Patient NYHA Physical activity limitations: NA Date of Service: Dec 26, 2024 Billing Provider: VALERIE CANALES MD Cardiology Common Codes: [id number] INP/OBS CARE (High) VALERIE CANALES MD Dec 25, 2024 14:09
[2024-12-26] MEDS: CHLORTHALIDONE 25 MG TAB PO SCH (08:00)
[2024-12-26] MEDS: ACETAMINOPHEN 325 MG TAB PO PRN (08:52)
[2024-12-26] MEDS: OXYCODONE W/ ACETAMINOPHEN 5/325MG TABLET PO PRN (16:28)
--- NOTE | 2024-12-26 17:55 | DVHPN2 ---
Subjective Patient has complained of back pain. Patient is here for hypertensive urgency and chest pain rule out [place]. Reviewed: Care Plan Changes from previous H/P or p: No Changes Eyes: No Pain, No Vision change, No Conjunctivae inflammation, No Eyelid inflammation, No Other, No Redness ENT: No Ear pain, No Ear discharge, No Nose pain, No Nose discharge, No Nose congestion, No Mouth pain, No Mouth swelling, No Throat pain, No Throat swelling, No Other Cardiovascular: Chest Pain; No Palpitations, No Orthopnea, No Paroxysmal Noc. Dyspnea, No Edema, No Lt Headedness; Other (Hypertension) Respiratory: No Cough, No Dry, No Shortness of breath, No SOB with excertion, No Wheezing, No Hemoptysis, No Pleuritic Pain, No Sputum, No Other Gastrointestinal: No Nausea, No Vomiting, No Abdominal Pain, No Diarrhea, No Constipation, No Melena, No Hematochezia, No Other Genitourinary: No Dysuria, No Frequency, No Incontinence, No Hematuria, No Retention, No Other Musculoskeletal: No other, No neck pain, No shoulder pain, No arm pain, No back pain, No hand pain, No leg pain, No foot pain Skin: No Rash, No Lesions, No Jaundice, No Bruising, No Other Objective Vitals Vital Signs Date Time Temp Pulse Resp B/P (MAP) Pulse Ox O2 Delivery O2 Flow Rate FiO2 12/26/24 16:43 98.1 89 19 140/68 (92) 95 98.1 12/26/24 08:00 Room Air* 0 21 Intake/Output Intake and Output 12/26/24 07:00 Intake Total 490 ml Balance 490 ml Intake Oral 490 ml # Voids 4 Exam HEENT pupils are reactive Neck is supple CV is S1-S2 regular rate and rhythm Respiratory are clear GI positive bowel sound 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 Medications Current Medications Medications Dose Ordered Sig/Cezar Route Start Time Stop Time Status Last Admin Dose Admin Clopidogrel Bisulfate 75 mg DAILY PO 12/25/24 10:00 12/26/24 09:47 75 MG Hydralazine HCl 10 mg Q6HP PRN IV 12/24/24 20:30 12/25/24 17:30 10 MG Amlodipine Besylate 10 mg DAILY PO 12/25/24 10:00 12/26/24 09:47 10 MG Sodium Chloride 10 ml Q8HR IV 12/24/24 22:00 12/26/24 13:38 10 ML Ondansetron HCl 4 mg Q4HP PRN IV 12/24/24 20:30 Docusate Sodium 100 mg BIDPRN PRN PO 12/24/24 20:30 Acetaminophen 325 mg Q6HP PRN PO 12/24/24 20:30 12/26/24 08:52 325 MG Morphine Sulfate 2 mg Q4HPRN PRN IV 12/24/24 21:30 12/26/24 13:25 2 MG Nitroglycerin 0.4 mg Q5MINP PRN SL 12/24/24 22:15 Morphine Sulfate 2 mg Q30M PRN IV 12/24/24 22:30 Chlorthalidone 25 mg DAILY@BREAKFAST PO 12/26/24 08:00 Oxycodone/ Acetaminophen 1 tab Q6HP PRN PO 12/26/24 14:45 12/26/24 16:28 1 TAB Laboratory Results Laboratory Tests 12/25/24 05:58 Urinalysis Test 12/25/24 09:37 Urine Color Light-yellow (Yellow) Urine Clarity Turbid (Clear) H Urine pH 5.5 (5.0-9.0) Urine Specific [place] 1.022 (1.001-1.035) Urine Protein Negative (Negative) Urine Ketones Negative (Negative) Urine Blood Negative /uL (Negative) Urine Nitrite Negative (Negative) Urine Bilirubin Negative (Negative) Urine Urobilinogen Normal mg/dL (Negative) Urine Leukocyte Esterase 1+ /uL (Negative) Urine RBC 2 /hpf (0 - 4) Urine Microscopic WBC 6 /HPF (0-5) H Urine Squamous Epithelial Cells Few /hpf (<5) Urine Bacteria None seen /hpf (None Seen) Urine Mucus Few (None Seen) Urine Glucose Normal mg/dL (Normal) Assessment/Plan Assessment/Plan 68-year-old female with a known history of hypertension, chronic asthma, morbid obesity class III who initially presented to the hospital with chest pain and uncontrolled blood pressure found to have 1. Chest pain rule out acute [place] 2. Hypertensive urgency 3. Chronic asthma 4. Chronic tobacco use disorder 5. Morbid obesity class III 6. Acute on chronic back pain MRI lumbar spine without contrast, orthopedic spine surgery consultation -2D echo cardiology consultation resume home medications, -cardiology planning for nuclear stress test. Plan discussed with: Patient, Other My Orders Orders - HALLEY ORTIZ MD Procedure Category Date Status Time Communication Order ORDERS 12/25/24 Transmitted 18:55 Consultdr. Ham CONS 12/26/24 Transmitted Admire(Spine) 14:37 Oxycodone W/ Acet PHA 12/26/24 In Process 5/325mg Tab (Percocet 14:45 Lumbar Spine Wo MRI 12/26/24 Logged Contrast 16:41 Date of Service: Dec 26, 2024 Billing Provider: HALLEY ORTIZ MD Common Visit Codes: [id number] INP/OBS CARE(MOD) HALLEY ORTIZ MD Dec 26, 2024 17:55
--- NOTE | 2024-12-26 23:34 | DVHPN2 ---
Progress Note - Dictate Date Seen: Dec 26, 2024 Medical Necessity Reason Pt with a Central, PICC or Fol: No Subjective Patient was seen and evaluated in follow up. Patient is complaining of back pain. Patient denies any cardiac symptoms at this time. MRI L-spine is pending. Telemetry reviewed. vital signs Vital Sign Date Time Temp Pulse Resp B/P (MAP) Pulse Ox O2 Delivery O2 Flow Rate FiO2 12/26/24 16:43 98.1 89 19 140/68 (92) 95 98.1 12/26/24 08:00 Room Air* 0 21 Total Intake and Output 12/25/24 12/25/24 12/26/24 15:00 23:00 07:00 Intake Total 490 ml Balance 490 ml medications Current Medications Medications Dose Ordered Sig/Cezar Route Start Time Stop Time Status Last Admin Dose Admin Clopidogrel Bisulfate 75 mg DAILY PO 12/25/24 10:00 12/26/24 09:47 75 MG Hydralazine HCl 10 mg Q6HP PRN IV 12/24/24 20:30 12/25/24 17:30 10 MG Amlodipine Besylate 10 mg DAILY PO 12/25/24 10:00 12/26/24 09:47 10 MG Sodium Chloride 10 ml Q8HR IV 12/24/24 22:00 12/26/24 13:38 10 ML Ondansetron HCl 4 mg Q4HP PRN IV 12/24/24 20:30 Docusate Sodium 100 mg BIDPRN PRN PO 12/24/24 20:30 Acetaminophen 325 mg Q6HP PRN PO 12/24/24 20:30 12/26/24 08:52 325 MG Morphine Sulfate 2 mg Q4HPRN PRN IV 12/24/24 21:30 12/26/24 13:25 2 MG Nitroglycerin 0.4 mg Q5MINP PRN SL 12/24/24 22:15 Morphine Sulfate 2 mg Q30M PRN IV 12/24/24 22:30 Chlorthalidone 25 mg DAILY@BREAKFAST PO 12/26/24 08:00 Oxycodone/ Acetaminophen 1 tab Q6HP PRN PO 12/26/24 14:45 12/26/24 16:28 1 TAB objective GENERAL: Alert and oriented x 3. No acute distress. Morbidly obese. EYES: PERRL, EOMI. Anicteric. HENT: Moist mucous membranes. LUNGS: Clear to auscultation bilaterally. CARDIOVASCULAR: Regular rate and rhythm. ABDOMEN: Soft, nontender and nondistended. EXTREMITIES: No edema. NEUROLOGIC: No focal neurological deficits. SKIN: Warm, dry. laboratory and microbiology Laboratory Tests 12/25/24 05:58 Test 12/25/24 05:58 Range/Units Serum Glucose 113 H 74-106 mg/dL Problem List Chest pain, rule out coronary ischemia. Hypertensive urgency, resolved. History of SVT. Asthma. Morbid obesity. History of tobacco use. Assessment/Plan Continued all current supportive medical care. Tylenol #3 and Oxycodone for pain management. Amlodipine. Plavix. Nitro SL. Morphine for pain management. IV Hydralazine for SBP > 160. Additional plan as per the hospital course. Plan discussed with: Patient VALERIE CANALES MD Dec 26, 2024 19:30
[2024-12-27] VITALS (8 sets, daily range): BP systolic 108–150; BP diastolic 56–92; PULSE 79–94; RESP 16–19; TEMP 97.9–98.5; O2SAT 94–100
--- NOTE | 2024-12-27 09:52 | DVHINCON2 ---
Consultation - Spinal Surgery Date Seen: Dec 27, 2024 Referring Physician Referring Physician Attending Doctor: Saman Abel [facility] Reason for Consultation Reason for Visit: Hypertensive crisis, history of back surgery, generalized weakness, c/o back pain History of Present Illness History of Present Illness History of Present Illness The patient is a 49-year-old female morbidly obese with past medical history of asthma, arthritis, liver disease, NH, migraine headache, SVT, and hypertension who presented to [facility] ED with complaint of chest pain. Patient reports symptoms progressively get worse with headache, tight substernal chest pain, rating 7/10 numeric scale, generalized weakness, getting worse that prompted this visit. Patient was seen and evaluated in the ED, laboratory data shows WBC 6.0, platelets 233, sodium 140, potassium 3.7, BUN 9, creatinine 0.65, glucose 108, troponin < 3, blood pressure 208/121 trending down to 164/99, heart rate 82, temperature 98.7 F, O2 saturation 97% on oxygen. Patient was given hydralazine 10 mg IV x1, amlodipine 10 mg p.o. x1, please see medication orders section in the computer. On my assessment, patient denied chest pain, no headache, no dizziness, no diaphoresis, no shortness of breath, no nausea, no vomiting, no fever, no chills. Patient was admitted for further evaluation and medical management. spine history, No surgeries in the past. AIDE injections with pain management when she lived in [place] and PT in the past which have both failed. Patient was told she had herniated discs lumbar but does not recall the levels patient has leg weakness with infrequesnt falling last 1.5 years ago. patient is new to the area Past Medical/Surgical History Past Medical/Surgical History Past Medical History Arthritis, Asthma, HTN, Liver, NH, Migraines, SVT Past Surgical History , Hysterectomy, Back surgeries Family and Social History Family and Social History Family History Reviewed, noncontributory to the management of this case. Past Social History The patient lives at home, quit smoking less than 1 year, denies alcohol or illicit drugs abuse. Allergies and medications Allergies: Coded Allergies: Aspirin (Verified Allergy, Unknown, 12/14/24) Home Meds Active Scripts Methocarbamol (Methocarbamol) 500 Mg Tab, 500 MG PO QID for 30 Days, #120 TAB Prov:VANNA BALLARD RESIDENT 12/16/24 Losartan Potassium (Losartan Potassium) 50 Mg Tab, 50 MG PO DAILY for 30 Days, #30 TAB Prov:VANNA BALLARD RESIDENT 12/16/24 Hctz (Hydrochlorothiazide) 25 Mg Tab, 12.5 MG PO DAILY for 30 Days, #30 TAB Prov:VANNA BALLARD 12/16/24 Acetaminophen (Acetaminophen) 325 Mg Tab, 325 MG PO Q4HPRN PRN for 30 Days, #150 TAB Prov:VANNA BALLARD RESIDENT 12/16/24 Gabapentin (Gabapentin) 100 Mg Cap, 1 CAP PO TID for 90 Days, #90 CAP 2 Refills Prov:CHELSIE DORAN MD 12/16/24 Hydrocodone-Acetaminophen (Hydrocodone Bitartrate/AC 5-325 mg) 1 Tab Tab, 1 TAB PO TID PRN for 7 Days, #21 TAB Prov:CHELSIE DORAN MD 12/16/24 Review of systems Review of Systems: HEENT:Abnormal (Patient has complaints of headache), CVS:Abnormal (Hypertensive crisis), RESPIRATORY:Abnormal (History of asthma), GI:Normal, :Normal, MSK:Normal Examination Vital signs Vital Signs Date Time Temp Pulse Resp B/P (MAP) Pulse Ox O2 Delivery O2 Flow Rate FiO2 12/27/24 09:00 97.9 89 16 124/89 (101) 97 97.9 12/26/24 20:00 Room Air* 0 21 Medications Current Medications Medications (Trade) Dose Ordered Sig/Cezar Route PRN Reason Start Time Stop Time Status Last Admin Oxycodone/ Acetaminophen (Percocet 5/ 325MG Tablet) 1 tab Q6HP PRN PO MODERATE PAIN (4-6 PAIN SCALE) 12/26/24 14:45 12/26/24 22:59 Laboratory Labs Test 12/25/24 09:37 12/25/24 05:58 12/24/24 22:51 Range/Units Urine Color Light-yellow Yellow Urine Clarity Turbid H Clear Urine pH 5.5 5.0-9.0 Urine Specific [place] 1.022 1.001-1.035 Urine Protein Negative Negative Urine Ketones Negative Negative Urine Blood Negative Negative /uL Urine Nitrite Negative Negative Urine Bilirubin Negative Negative Urine Urobilinogen Normal Negative mg/dL Urine Leukocyte Esterase 1+ Negative /uL Urine RBC 2 0 - 4 /hpf Urine Microscopic WBC 6 H 0-5 /HPF Urine Squamous Epithelial Cells Few <5 /hpf Urine Bacteria None seen None Seen /hpf Urine Mucus Few None Seen Urine Glucose Normal Normal mg/dL Urine Opiates Screen Pos NEGATIVE Urine Fentanyl Screen Neg NEGATIVE Urine Barbiturates Screen Neg NEGATIVE Urine Phencyclidine Screen Neg NEGATIVE Urine Amphetamines Screen Neg NEGATIVE Urine Benzodiazepines Screen Neg NEGATIVE Urine Cocaine Screen Neg NEGATIVE Urine Cannabinoids Screen Neg NEGATIVE White Blood Count 4.9 4.4-10.8 10^3/uL Red Blood Count 4.35 4.0-5.20 10^6/uL Hemoglobin 11.8 L 12.2-16.2 g/dL Hematocrit 35.3 L 36.0-46.0 % Mean Corpuscular Volume 81.2 80.0-100.0 fL Mean Corpuscular Hemoglobin 27.2 L 28.0-32.0 pg Mean Corpuscular Hemoglobin Concent 33.5 32.0-36.0 g/dL Red Cell Distribution Width 14.2 11.8-14.3 % Platelet Count 245 140-450 10^3/uL Mean Platelet Volume 7.8 6.9-10.8 fL Neutrophils (%) (Auto) 51.0 37.0-80.0 % Lymphocytes (%) (Auto) 36.1 10.0-50.0 % Monocytes (%) (Auto) 6.6 0.0-12.0 % Eosinophils (%) (Auto) 5.9 0.0-7.0 % Basophils (%) (Auto) 0.4 0.0-2.0 % Neutrophils # (Auto) 2.5 1.6-8.6 10 ^3/uL Lymphocytes # (Auto) 1.8 0.4-5.4 10 ^3/uL Monocytes # (Auto) 0.3 0-1.3 10 ^3/uL Eosinophils # (Auto) 0.3 0-0.8 10 ^3/uL Basophils # (Auto) 0 0-0.2 10 ^3/uL Nucleated Red Blood Cells 0.0 % Sodium Level 141 136-145 mmol/L Potassium Level 4.2 3.5-5.1 mmol/L Chloride Level 107 98-107 mmol/L Carbon Dioxide Level 29 20-31 mmol/L Anion Gap 5 5-15 Blood Urea Nitrogen 9 9-23 mg/dL Creatinine 0.82 0.550-1.02 mg/dL Glomerular Filtration Rate Calc 87 >90 mL/min BUN/Creatinine Ratio 11.0 10.0-20.0 Serum Glucose 113 H 74-106 mg/dL Hemoglobin A1c 6.2 H <5.7 % A1C Calcium Level 9.9 8.7-10.4 mg/dL Total Bilirubin 0.7 0.2-1.0 mg/dL Aspartate Amino Transferase (AST) < 8 L 13-40 U/L Alanine Aminotransferase (ALT) 13 7-40 U/L Alkaline Phosphatase 80 46-116 U/L Total Protein 7.9 5.7-8.2 g/dL Albumin 4.2 3.2-4.8 g/dL Triglycerides Level 115 < 150 mg/dL Cholesterol Level 167 < 200 mg/dL LDL Cholesterol 107 H < 100 mg/dL HDL Cholesterol 43 40-59 mg/dL Thyroid Stimulating Hormone (TSH) 1.56 0.55-4.78 uIU/mL Beta HCG, Quantitative 1.2 L 1.5-4.2 mIU/mL Troponin I High Sensitivity < 3 L </=34 ng/L Examination: GENERAL:Normal, HEENT:Abnormal (headaches, shoulder pain), NECK:Abnormal (neck pain, shouler pain), LUNGS:Normal (no distress at this time), CVS:Abnormal (r/o NH chest pain pat going to stress test), ABDOMEN:Abnormal (obese), MSK:Abnormal (weakness BLE 4/5 limited due to pain, s low transitioing due to severe pain, limited walking, sitting, standing. ), SKIN:Normal, NEURO:Normal, :Normal Problem List/Assessment/Plan Problems: (1) Generalized weakness (2) Lumbar stenosis with neurogenic claudication Assessment and Plan Pending MRI lumbar spine without contrast, spine surgery to make recommendations once imaging is complete. No other pertinent image studies have been completed at this time Patient has a history of low back pain in the past, prior AIDE, and PT both have failed her At this time patient is moving all extremities has no focal neurologic deficits, complaints of generalized weakness however she is admitted for several other conditions involving her cardiovascular system and respiratory system. Patient needs to be metabolically optimized Patient is open to considering lumbar spine surgery if needed. Further care and treatment per admitting team's discretion PT evaluation and recommendations for safe discharge and treatment plan Recommend Muscle relaxers for muscle spasms Call with questions Tami Herrmann [facility] Orthopaedic Spine Surgery nurse practitioner For Dr Cale Nava Patient was examined, chart reviewed, labs evaluated, and diagnostic studies and findings analyzed. Case was discussed with Dr. Ham Nava who formulated the plan of care. This medical document was created using an electronic medical record system with [employer] dictation system. Although this document has been carefully reviewed, there might still be some phonetic and typographical errors. These areas are purely typographical due to imperfections of the software programs, and do not reflect any compromise in the patient's medical care. Plan discussed with Plan discussed with: Patient, Other ([id number]) ANEL HERRMANN NP Dec 27, 2024 09:52
--- NOTE | 2024-12-27 12:15 | ECG ---
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
--- NOTE | 2024-12-27 12:16 | ECG ---
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
[2024-12-27] MEDS: REGADENOSON 0.4 MG/5 ML SYRG IV ONE ×2 (12:27→12:28)
[2024-12-27] MEDS: ONDANSETRON HCL 4 MG/2 ML VIAL IV PRN (13:50)
--- NOTE | 2024-12-27 13:57 | DVH ---
PROCEDURE: MRI LUMBAR SPINE WO CONTRAST INDICATION: R/O spinal stenosis Exam Date: 12/27/2024 12:48 PM COMPARISON: None TECHNIQUE: MRI lumbar spine without intravenous contrast. FINDINGS: The lumbar alignment is intact. The vertebral body heights and marrow signal are within normal limit s. The visualized distal spinal cord and conus medullaris are within normal limits. The conus medul adarsh appears to terminate within normal limits. The visualized retroperitoneal and paraspinal soft tissues are unremarkable. The following axial levels are detailed below: T12-L1: Unremarkable. L1-L2: Unremarkable. L2-L3: Unremarkable. L3-L4: There is a moderate circumferential disc bulge complicated by facet arthropathy associated w ith mild to moderate left neuroforaminal stenosis. No significant central canal stenosis. L4-L5: There is a moderate circumferential disc bulge complicated by facet arthropathy associated w ith mild to moderate bilateral neuroforaminal stenosis. No significant central canal stenosis. L5-S1: There is a moderate circumferential disc bulge complicated by facet arthropathy associated wi th mild to moderate bilateral neuroforaminal stenosis. No significant central canal stenosis. IMPRESSION: 1. Mild degenerative disease lower lumbar levels. No significant central canal stenosis. Neural for aminal stenosis as above. HS:Y
[2024-12-27] MEDS ORDERED: CARI-579 PO (17:00)
--- NOTE | 2024-12-27 17:04 | DVHDS2 ---
Discharge Summary Date of Admission Dec 24, 2024 at 22:12 Date of Discharge: Dec 27, 2024 Labs/Diagnostic Data: Laboratory Results Test 12/25/24 09:37 12/25/24 05:58 12/24/24 22:51 Urine Color Light-yellow (Yellow) Urine Clarity Turbid (Clear) Urine pH 5.5 (5.0-9.0) Urine Specific [place] 1.022 (1.001-1.035) Urine Protein Negative (Negative) Urine Ketones Negative (Negative) Urine Blood Negative /uL (Negative) Urine Nitrite Negative (Negative) Urine Bilirubin Negative (Negative) Urine Urobilinogen Normal mg/dL (Negative) Urine Leukocyte Esterase 1+ /uL (Negative) Urine RBC 2 /hpf (0 - 4) Urine Microscopic WBC 6 /HPF (0-5) Urine Squamous Epithelial Cells Few /hpf (<5) Urine Bacteria None seen /hpf (None Seen) Urine Mucus Few (None Seen) Urine Glucose Normal mg/dL (Normal) Urine Opiates Screen Pos (NEGATIVE) Urine Fentanyl Screen Neg (NEGATIVE) Urine Barbiturates Screen Neg (NEGATIVE) Urine Phencyclidine Screen Neg (NEGATIVE) Urine Amphetamines Screen Neg (NEGATIVE) Urine Benzodiazepines Screen Neg (NEGATIVE) Urine Cocaine Screen Neg (NEGATIVE) Urine Cannabinoids Screen Neg (NEGATIVE) White Blood Count 4.9 10^3/uL (4.4-10.8) Red Blood Count 4.35 10^6/uL (4.0-5.20) Hemoglobin 11.8 g/dL (12.2-16.2) Hematocrit 35.3 % (36.0-46.0) Mean Corpuscular Volume 81.2 fL (80.0-100.0) Mean Corpuscular Hemoglobin 27.2 pg (28.0-32.0) Mean Corpuscular Hemoglobin Concent 33.5 g/dL (32.0-36.0) Red Cell Distribution Width 14.2 % (11.8-14.3) Platelet Count 245 10^3/uL (140-450) Mean Platelet Volume 7.8 fL (6.9-10.8) Neutrophils (%) (Auto) 51.0 % (37.0-80.0) Lymphocytes (%) (Auto) 36.1 % (10.0-50.0) Monocytes (%) (Auto) 6.6 % (0.0-12.0) Eosinophils (%) (Auto) 5.9 % (0.0-7.0) Basophils (%) (Auto) 0.4 % (0.0-2.0) Neutrophils # (Auto) 2.5 10 ^3/uL (1.6-8.6) Lymphocytes # (Auto) 1.8 10 ^3/uL (0.4-5.4) Monocytes # (Auto) 0.3 10 ^3/uL (0-1.3) Eosinophils # (Auto) 0.3 10 ^3/uL (0-0.8) Basophils # (Auto) 0 10 ^3/uL (0-0.2) Nucleated Red Blood Cells 0.0 % Sodium Level 141 mmol/L (136-145) Potassium Level 4.2 mmol/L (3.5-5.1) Chloride Level 107 mmol/L (98-107) Carbon Dioxide Level 29 mmol/L (20-31) Anion Gap 5 (5-15) Blood Urea Nitrogen 9 mg/dL (9-23) Creatinine 0.82 mg/dL (0.550-1.02) Glomerular Filtration Rate Calc 87 mL/min (>90) BUN/Creatinine Ratio 11.0 (10.0-20.0) Serum Glucose 113 mg/dL (74-106) Hemoglobin A1c 6.2 % A1C (<5.7) Calcium Level 9.9 mg/dL (8.7-10.4) Total Bilirubin 0.7 mg/dL (0.2-1.0) Aspartate Amino Transferase (AST) < 8 U/L (13-40) Alanine Aminotransferase (ALT) 13 U/L (7-40) Alkaline Phosphatase 80 U/L (46-116) Total Protein 7.9 g/dL (5.7-8.2) Albumin 4.2 g/dL (3.2-4.8) Triglycerides Level 115 mg/dL (< 150) Cholesterol Level 167 mg/dL (< 200) LDL Cholesterol 107 mg/dL (< 100) HDL Cholesterol 43 mg/dL (40-59) Thyroid Stimulating Hormone (TSH) 1.56 uIU/mL (0.55-4.78) Beta HCG, Quantitative 1.2 mIU/mL (1.5-4.2) Troponin I High Sensitivity < 3 ng/L (</=34) Other Laboratory Tests 12/25/24 05:58 Final Diagnosis/Problems List 49-year-old female with a known history of hypertension, chronic asthma, morbid obesity class III who initially presented to the hospital with chest pain and uncontrolled blood pressure found to have 1. Chest pain rule out acute [place] 2. Hypertensive urgency 3. Chronic asthma 4. Chronic tobacco use disorder 5. Morbid obesity class III 6. Acute on chronic back pain Discharge Disposition: Home Discharge Instruct/Medications Diet: Cardiac 2g Na,low cholest Activity: See Comment Activity comment: No driving, no planning having surgery, no signing of legal documents while she is on pain medications. Follow Up/Referral: With the PCP in 1-2 weeks Follow up with the Cardiology in 1-2 weeks Follow up with the orthopedic spine surgery in 1-2 weeks Medications: Resume home medication, added [place] Discharge Statement: "Patient was advised to return to the ER or call 911 if any headaches, dizziness, shortness of breath, chest pain, abdominal pain, bleeding, fevers, or worsening of medical condition. Patient was counseled about treatment plan, medications, possible side effects, patientverbalized understanding. All questions were answered to the best of my ability. This discharge took greater then 30 minutes in planning, reviewing documentation, counseling the patient, and discussing with other team members." ASSESSMENT ASSESSMENT Assessment 49-year-old female with a known history of hypertension, chronic asthma, morbid obesity class III who initially presented to the hospital with chest pain and uncontrolled blood pressure found to have 1. Chest pain rule out acute [place] 2. Hypertensive urgency 3. Chronic asthma 4. Chronic tobacco use disorder 5. Morbid obesity class III 6. Acute on chronic back pain HALLEY ORTIZ MD Dec 27, 2024 17:04
[2024-12-27] MEDS: CARISOPRODOL 350 MG TAB PO SCH (22:51)
[2024-12-28] VITALS (8 sets, daily range): BP systolic 112–140; BP diastolic 62–87; PULSE 79–101; RESP 16–20; TEMP 96.9–98; O2SAT 93–98
--- NOTE | 2024-12-28 00:41 | DVHPN2 ---
Progress Note - Dictate Date Seen: Dec 27, 2024 Medical Necessity Reason Pt with a Central, PICC or Fol: No Subjective Patient was seen and evaluated in follow up. Patient is complaining of back pain. Patient on room air. Patient is scheduled for stress test. MRI L-spine shows mild degenerative disease lower lumbar levels. No significant central canal stenosis. Neural foraminal stenosis as above. Telemetry reviewed. vital signs Vital Sign Date Time Temp Pulse Resp B/P (MAP) Pulse Ox O2 Delivery O2 Flow Rate FiO2 12/27/24 21:13 87 16 150/88 12/27/24 21:00 98.4 94 98.4 12/27/24 20:00 Room Air* 0 21 Total Intake and Output 12/27/24 12/27/24 12/28/24 15:00 23:00 07:00 Intake Total 472 ml Balance 472 ml medications Current Medications Medications Dose Ordered Sig/Cezar Route Start Time Stop Time Status Last Admin Dose Admin Clopidogrel Bisulfate 75 mg DAILY PO 12/25/24 10:00 12/26/24 09:47 75 MG Hydralazine HCl 10 mg Q6HP PRN IV 12/24/24 20:30 12/25/24 17:30 10 MG Amlodipine Besylate 10 mg DAILY PO 12/25/24 10:00 12/26/24 09:47 10 MG Sodium Chloride 10 ml Q8HR IV 12/24/24 22:00 12/27/24 21:58 10 ML Ondansetron HCl 4 mg Q4HP PRN IV 12/24/24 20:30 12/27/24 13:50 4 MG Docusate Sodium 100 mg BIDPRN PRN PO 12/24/24 20:30 Acetaminophen 325 mg Q6HP PRN PO 12/24/24 20:30 12/26/24 08:52 325 MG Morphine Sulfate 2 mg Q4HPRN PRN IV 12/24/24 21:30 12/27/24 20:43 2 MG Nitroglycerin 0.4 mg Q5MINP PRN SL 12/24/24 22:15 Morphine Sulfate 2 mg Q30M PRN IV 12/24/24 22:30 Chlorthalidone 25 mg DAILY@BREAKFAST PO 12/26/24 08:00 Oxycodone/ Acetaminophen 1 tab Q6HP PRN PO 12/26/24 14:45 12/27/24 21:55 1 TAB Carisoprodol 350 mg TID PO 12/27/24 22:00 12/27/24 22:51 350 MG objective GENERAL: Alert and oriented x 3. No acute distress. Morbidly obese. EYES: PERRL, EOMI. Anicteric. HENT: Moist mucous membranes. LUNGS: Clear to auscultation bilaterally. CARDIOVASCULAR: Regular rate and rhythm. ABDOMEN: Soft, nontender and nondistended. EXTREMITIES: No edema. NEUROLOGIC: No focal neurological deficits. SKIN: Warm, dry. laboratory and microbiology Laboratory Tests 12/25/24 05:58 Test 12/25/24 05:58 Range/Units Serum Glucose 113 H 74-106 mg/dL Problem List Chest pain, rule out coronary ischemia. Hypertensive urgency, resolved. History of SVT. Asthma. Morbid obesity. History of tobacco use. Assessment/Plan Continued all current supportive medical care. Tylenol #3 and Oxycodone for pain management. Amlodipine. Plavix. Nitro SL. Morphine for pain management. IV Hydralazine for SBP > 160. Additional plan as per the hospital course. Plan discussed with: Patient VALERIE CANALES MD Dec 28, 2024 00:41
--- NOTE | 2024-12-28 11:26 | DVHSR ---
APPROVED REPORT Exam: Nuclear Stress Test Indication: Chest pain Stress Tech: Verona Calderon Ht: 5 ft 5 in Wt: 335 lbs BSA: 2.46 m2 BMI: 55.74 Medical History Medical History: HTN, Obesity , Smoking, MIGRAINES, PAROXSYMAL SVT, ASTHMA, LUMBAR STENOSIS Allergies: ASA Stress Test Details Stress Test: Pharmacologic stress testing performed using 0.4 mg of regadenoson per 5 mL given IV ov er 10 seconds. Reason for pharmacologic stress test: CHEST PAIN. HR Resting HR: 82 bpmMax Heart Rate (APMHR): 169.416256 bpm Max HR Achieved: 117 bpmTarget HR (85% APMHR): 143.684980 bpm % of APMHR: 69.23 Recovery HR: 96 bpm BP Resting BP: 172/84 mmHg Recovery BP: 157/76 mmHg ECG Resting ECG: Sinus Rhythm Clinical Reason for Termination: Completed protocol Nurse Comments Received patient from Nuclear Medicine. Patient is A&O x4 and on RA. FOR VS please refer back to st ress test assessment documentation. Patient is connected to environmental monitoring specialist. See cardio-neuro proce dural notes for addtional details. PIV flushes well. Reviewed POC and patient verbalizes understand ing and consents to test. Lexiscan stress test performed per protocol. pharmacy order entry technician administered the Cardiolite. Pat ient tolerated well and vitals returned to baseline. Transferred to Nuclear Medicine via wheelchair with tech in stable condition. Stress ECG Conclusion lvef 61% anterior wall ishcemia noted cannot rule out breast artifact non specific ST-T changes laterally noted NM EXAM: Myocardial Perfusion REST/STRESS Imaging Protocol: Rest Tc-99m/Stress Tc-99m 1 day Resting Data Rest SPECT myocardial perfusion imaging was performed in supine position 60 minutes following the int ravenous injection of 12.3 mCi of Tc-99m Sestamibi. Time of rest injection: 1100 Time of rest imagin Administration Route: IV Administration Site: Left Hand Pharmacologic Stress Pharmacologic stress test was performed by injecting Regadenoson 0.4 mg IV push followed by the intra venous injection of 32.6 mCi of Tc-99m Sestamibi. Time of stress injection: 1230 Time of stress imagin Administration Route: IV Administration Site: Left Hand Gated Stress SPECT was performed 90 minutes after stress injection. The images were gated to evaluate regional wall motion and calculate left ventricular ejection fracti on. Nuclear Conclusion Nuclear Findings: positive for ischemia lvef 61% anterior wall ishcemia noted cannot rule out breast artifact non specific ST-T changes laterally noted
--- NOTE | 2024-12-28 18:46 | DVHPN2 ---
Subjective Patient has complained of back pain. Patient is here for hypertensive urgency and chest pain rule out AR. Reviewed: Care Plan Changes from previous H/P or p: No Changes Eyes: No Pain, No Vision change, No Conjunctivae inflammation, No Eyelid inflammation, No Other, No Redness ENT: No Ear pain, No Ear discharge, No Nose pain, No Nose discharge, No Nose congestion, No Mouth pain, No Mouth swelling, No Throat pain, No Throat swelling, No Other Cardiovascular: Chest Pain; No Palpitations, No Orthopnea, No Paroxysmal Noc. Dyspnea, No Edema, No Lt Headedness; Other (Hypertension) Respiratory: No Cough, No Dry, No Shortness of breath, No SOB with excertion, No Wheezing, No Hemoptysis, No Pleuritic Pain, No Sputum, No Other Gastrointestinal: No Nausea, No Vomiting, No Abdominal Pain, No Diarrhea, No Constipation, No Melena, No Hematochezia, No Other Genitourinary: No Dysuria, No Frequency, No Incontinence, No Hematuria, No Retention, No Other Musculoskeletal: No other, No neck pain, No shoulder pain, No arm pain, No back pain, No hand pain, No leg pain, No foot pain Skin: No Rash, No Lesions, No Jaundice, No Bruising, No Other Objective Vitals Vital Signs Date Time Temp Pulse Resp B/P (MAP) Pulse Ox O2 Delivery O2 Flow Rate FiO2 12/28/24 17:00 97.6 90 20 140/79 (99) 95 97.6 12/28/24 08:00 Room Air* 0 21 Intake/Output Intake and Output 12/28/24 07:00 Intake Total 672 ml Balance 672 ml Intake Oral 672 ml # Voids 6 # Bowel Movements 3 Exam HEENT pupils are reactive Neck is supple CV is S1-S2 regular rate and rhythm Respiratory are clear GI positive bowel sound 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 Medications Current Medications Medications Dose Ordered Sig/Cezar Route Start Time Stop Time Status Last Admin Dose Admin Clopidogrel Bisulfate 75 mg DAILY PO 12/25/24 10:00 12/28/24 09:43 75 MG Hydralazine HCl 10 mg Q6HP PRN IV 12/24/24 20:30 12/25/24 17:30 10 MG Amlodipine Besylate 10 mg DAILY PO 12/25/24 10:00 12/26/24 09:47 10 MG Sodium Chloride 10 ml Q8HR IV 12/24/24 22:00 12/28/24 14:00 10 ML Ondansetron HCl 4 mg Q4HP PRN IV 12/24/24 20:30 12/27/24 13:50 4 MG Docusate Sodium 100 mg BIDPRN PRN PO 12/24/24 20:30 Acetaminophen 325 mg Q6HP PRN PO 12/24/24 20:30 12/26/24 08:52 325 MG Morphine Sulfate 2 mg Q4HPRN PRN IV 12/24/24 21:30 12/28/24 15:04 2 MG Nitroglycerin 0.4 mg Q5MINP PRN SL 12/24/24 22:15 Morphine Sulfate 2 mg Q30M PRN IV 12/24/24 22:30 Chlorthalidone 25 mg DAILY@BREAKFAST PO 12/26/24 08:00 12/28/24 09:43 25 MG Oxycodone/ Acetaminophen 1 tab Q6HP PRN PO 12/26/24 14:45 12/27/24 21:55 1 TAB Carisoprodol 350 mg TID PO 12/27/24 22:00 12/28/24 06:25 350 MG Laboratory Results Laboratory Tests 12/25/24 05:58 Urinalysis Test 12/25/24 09:37 Urine Color Light-yellow (Yellow) Urine Clarity Turbid (Clear) H Urine pH 5.5 (5.0-9.0) Urine Specific [place] 1.022 (1.001-1.035) Urine Protein Negative (Negative) Urine Ketones Negative (Negative) Urine Blood Negative /uL (Negative) Urine Nitrite Negative (Negative) Urine Bilirubin Negative (Negative) Urine Urobilinogen Normal mg/dL (Negative) Urine Leukocyte Esterase 1+ /uL (Negative) Urine RBC 2 /hpf (0 - 4) Urine Microscopic WBC 6 /HPF (0-5) H Urine Squamous Epithelial Cells Few /hpf (<5) Urine Bacteria None seen /hpf (None Seen) Urine Mucus Few (None Seen) Urine Glucose Normal mg/dL (Normal) Assessment/Plan Assessment/Plan 68-year-old female with a known history of hypertension, chronic asthma, morbid obesity class III who initially presented to the hospital with chest pain and uncontrolled blood pressure found to have 1. Chest pain rule out acute [place] 2. Hypertensive urgency 3. Chronic asthma 4. Chronic tobacco use disorder 5. Morbid obesity class III 6. Acute on chronic back pain -follow up Lexiscan, pain meds as needed, cardiology follow up with Plan discussed with: Patient Date of Service: Dec 27, 2024 Billing Provider: HALLEY ORTIZ MD Common Visit Codes: [id number] INP/OBS CARE(MOD) HALLEY ORTIZ MD Dec 28, 2024 18:46
--- NOTE | 2024-12-28 18:48 | DVHPN2 ---
Subjective Patient is Lexiscan came back positive. Dr. Deonte Torres notified me and he will call Dr. Castañeda for possible angiogram. Reviewed: Care Plan Changes from previous H/P or p: No Changes Eyes: No Pain, No Vision change, No Conjunctivae inflammation, No Eyelid inflammation, No Other, No Redness ENT: No Ear pain, No Ear discharge, No Nose pain, No Nose discharge, No Nose congestion, No Mouth pain, No Mouth swelling, No Throat pain, No Throat swelling, No Other Cardiovascular: Chest Pain; No Palpitations, No Orthopnea, No Paroxysmal Noc. Dyspnea, No Edema, No Lt Headedness; Other (Hypertension) Respiratory: No Cough, No Dry, No Shortness of breath, No SOB with excertion, No Wheezing, No Hemoptysis, No Pleuritic Pain, No Sputum, No Other Gastrointestinal: No Nausea, No Vomiting, No Abdominal Pain, No Diarrhea, No Constipation, No Melena, No Hematochezia, No Other Genitourinary: No Dysuria, No Frequency, No Incontinence, No Hematuria, No Retention, No Other Musculoskeletal: No other, No neck pain, No shoulder pain, No arm pain, No back pain, No hand pain, No leg pain, No foot pain Skin: No Rash, No Lesions, No Jaundice, No Bruising, No Other Objective Vitals Vital Signs Date Time Temp Pulse Resp B/P (MAP) Pulse Ox O2 Delivery O2 Flow Rate FiO2 12/28/24 17:00 97.6 90 20 140/79 (99) 95 97.6 12/28/24 08:00 Room Air* 0 21 Intake/Output Intake and Output 12/28/24 07:00 Intake Total 672 ml Balance 672 ml Intake Oral 672 ml # Voids 6 # Bowel Movements 3 Exam HEENT pupils are reactive Neck is supple CV is S1-S2 regular rate and rhythm Respiratory are clear GI positive bowel sound 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 Medications Current Medications Medications Dose Ordered Sig/Cezar Route Start Time Stop Time Status Last Admin Dose Admin Clopidogrel Bisulfate 75 mg DAILY PO 12/25/24 10:00 12/28/24 09:43 75 MG Hydralazine HCl 10 mg Q6HP PRN IV 12/24/24 20:30 12/25/24 17:30 10 MG Amlodipine Besylate 10 mg DAILY PO 12/25/24 10:00 12/26/24 09:47 10 MG Sodium Chloride 10 ml Q8HR IV 12/24/24 22:00 12/28/24 14:00 10 ML Ondansetron HCl 4 mg Q4HP PRN IV 12/24/24 20:30 12/27/24 13:50 4 MG Docusate Sodium 100 mg BIDPRN PRN PO 12/24/24 20:30 Acetaminophen 325 mg Q6HP PRN PO 12/24/24 20:30 12/26/24 08:52 325 MG Morphine Sulfate 2 mg Q4HPRN PRN IV 12/24/24 21:30 12/28/24 15:04 2 MG Nitroglycerin 0.4 mg Q5MINP PRN SL 12/24/24 22:15 Morphine Sulfate 2 mg Q30M PRN IV 12/24/24 22:30 Chlorthalidone 25 mg DAILY@BREAKFAST PO 12/26/24 08:00 12/28/24 09:43 25 MG Oxycodone/ Acetaminophen 1 tab Q6HP PRN PO 12/26/24 14:45 12/27/24 21:55 1 TAB Carisoprodol 350 mg TID PO 12/27/24 22:00 12/28/24 06:25 350 MG Laboratory Results Laboratory Tests 12/25/24 05:58 Urinalysis Test 12/25/24 09:37 Urine Color Light-yellow (Yellow) Urine Clarity Turbid (Clear) H Urine pH 5.5 (5.0-9.0) Urine Specific [place] 1.022 (1.001-1.035) Urine Protein Negative (Negative) Urine Ketones Negative (Negative) Urine Blood Negative /uL (Negative) Urine Nitrite Negative (Negative) Urine Bilirubin Negative (Negative) Urine Urobilinogen Normal mg/dL (Negative) Urine Leukocyte Esterase 1+ /uL (Negative) Urine RBC 2 /hpf (0 - 4) Urine Microscopic WBC 6 /HPF (0-5) H Urine Squamous Epithelial Cells Few /hpf (<5) Urine Bacteria None seen /hpf (None Seen) Urine Mucus Few (None Seen) Urine Glucose Normal mg/dL (Normal) Assessment/Plan Assessment/Plan 68-year-old female with a known history of hypertension, chronic asthma, morbid obesity class III who initially presented to the hospital with chest pain and uncontrolled blood pressure found to have 1. Chest pain rule out acute [place] 2. Hypertensive urgency 3. Chronic asthma 4. Chronic tobacco use disorder 5. Morbid obesity class III 6. Acute on chronic back pain -patient's Lexiscan is positive, may need coronary angiogram has been cardiology. pain meds as needed, cardiology follow up with Plan discussed with: Patient Date of Service: Dec 28, 2024 Billing Provider: HALLEY ORTIZ MD Common Visit Codes: [id number] INP/OBS CARE(MOD) HALLEY ORTIZ MD Dec 28, 2024 18:48
--- NOTE | 2024-12-28 22:47 | DVHPN2 ---
Progress Note - Dictate Date Seen: Dec 28, 2024 Medical Necessity Reason Pt with a Central, PICC or Fol: No Subjective Patient was seen and evaluated in follow up. Patient is complaining of lower back pain. Patient underwent Lexiscan stress test, EF is 61%. There is anterior wall ischemia noted. Patient may benefit from coronary angiogram. Telemetry reviewed. vital signs Vital Sign Date Time Temp Pulse Resp B/P (MAP) Pulse Ox O2 Delivery O2 Flow Rate FiO2 12/28/24 21:02 84 16 125/84 12/28/24 21:00 97.9 97 97.9 12/28/24 20:00 Room Air* 0 21 Total Intake and Output 12/27/24 12/27/24 12/28/24 15:00 23:00 07:00 Intake Total 472 ml 200 ml Balance 472 ml 200 ml medications Current Medications Medications Dose Ordered Sig/Cezar Route Start Time Stop Time Status Last Admin Dose Admin Clopidogrel Bisulfate 75 mg DAILY PO 12/25/24 10:00 12/28/24 09:43 75 MG Hydralazine HCl 10 mg Q6HP PRN IV 12/24/24 20:30 12/25/24 17:30 10 MG Amlodipine Besylate 10 mg DAILY PO 12/25/24 10:00 12/26/24 09:47 10 MG Sodium Chloride 10 ml Q8HR IV 12/24/24 22:00 12/28/24 21:30 10 ML Ondansetron HCl 4 mg Q4HP PRN IV 12/24/24 20:30 12/27/24 13:50 4 MG Docusate Sodium 100 mg BIDPRN PRN PO 12/24/24 20:30 Acetaminophen 325 mg Q6HP PRN PO 12/24/24 20:30 12/26/24 08:52 325 MG Morphine Sulfate 2 mg Q4HPRN PRN IV 12/24/24 21:30 12/28/24 20:32 2 MG Nitroglycerin 0.4 mg Q5MINP PRN SL 12/24/24 22:15 Morphine Sulfate 2 mg Q30M PRN IV 12/24/24 22:30 Chlorthalidone 25 mg DAILY@BREAKFAST PO 12/26/24 08:00 12/28/24 09:43 25 MG Oxycodone/ Acetaminophen 1 tab Q6HP PRN PO 12/26/24 14:45 12/27/24 21:55 1 TAB Carisoprodol 350 mg TID PO 12/27/24 22:00 12/28/24 21:27 350 MG objective GENERAL: Alert and oriented x 3. No acute distress. Morbidly obese. EYES: PERRL, EOMI. Anicteric. HENT: Moist mucous membranes. LUNGS: Clear to auscultation bilaterally. CARDIOVASCULAR: Regular rate and rhythm. ABDOMEN: Soft, nontender and nondistended. EXTREMITIES: No edema. NEUROLOGIC: No focal neurological deficits. SKIN: Warm, dry. laboratory and microbiology Laboratory Tests 12/25/24 05:58 Test 12/25/24 05:58 Range/Units Serum Glucose 113 H 74-106 mg/dL Problem List Chest pain, rule out coronary ischemia. Hypertensive urgency, resolved. History of SVT. Asthma. Morbid obesity. History of tobacco use. Assessment/Plan Continued all current supportive medical care. Amlodipine. Plavix. IV Hydralazine for SBP > 160. Morphine and Oxycodone for pain management. Nitro SL. Additional plan as per the hospital course. Plan discussed with: Patient VALERIE CANALES MD Dec 28, 2024 22:47
[2024-12-29] VITALS (8 sets, daily range): BP systolic 91–155; BP diastolic 55–88; PULSE 77–109; RESP 16–20; TEMP 97.2–98.4; O2SAT 96–100
--- NOTE | 2024-12-29 15:19 | DVHPN2 ---
Progress Note - Dictate Date Seen: Dec 29, 2024 Medical Necessity Reason Pt with a Central, PICC or Fol: No Subjective Patient was seen and evaluated in follow up. Patient is complaining of lower back pain. Patient is scheduled for coronary angiogram with Dr. Castañeda. Telemetry reviewed. vital signs Vital Sign Date Time Temp Pulse Resp B/P (MAP) Pulse Ox O2 Delivery O2 Flow Rate FiO2 12/29/24 10:05 135/79 12/29/24 09:00 98.0 81 17 99 98.0 12/29/24 08:00 Room Air* 0 21 Total Intake and Output 12/28/24 12/28/24 12/29/24 14:59 22:59 06:59 Intake Total 900 ml 800 ml Balance 900 ml 800 ml medications Current Medications Medications Dose Ordered Sig/Cezar Route Start Time Stop Time Status Last Admin Dose Admin Clopidogrel Bisulfate 75 mg DAILY PO 12/25/24 10:00 12/29/24 10:05 75 MG Hydralazine HCl 10 mg Q6HP PRN IV 12/24/24 20:30 12/25/24 17:30 10 MG Amlodipine Besylate 10 mg DAILY PO 12/25/24 10:00 12/29/24 10:05 10 MG Sodium Chloride 10 ml Q8HR IV 12/24/24 22:00 12/29/24 06:06 10 ML Ondansetron HCl 4 mg Q4HP PRN IV 12/24/24 20:30 12/27/24 13:50 4 MG Docusate Sodium 100 mg BIDPRN PRN PO 12/24/24 20:30 Acetaminophen 325 mg Q6HP PRN PO 12/24/24 20:30 12/26/24 08:52 325 MG Morphine Sulfate 2 mg Q4HPRN PRN IV 12/24/24 21:30 12/28/24 20:32 2 MG Nitroglycerin 0.4 mg Q5MINP PRN SL 12/24/24 22:15 Morphine Sulfate 2 mg Q30M PRN IV 12/24/24 22:30 Chlorthalidone 25 mg DAILY@BREAKFAST PO 12/26/24 08:00 12/29/24 08:40 25 MG Oxycodone/ Acetaminophen 1 tab Q6HP PRN PO 12/26/24 14:45 12/27/24 21:55 1 TAB Carisoprodol 350 mg TID PO 12/27/24 22:00 12/29/24 06:06 350 MG objective GENERAL: Alert and oriented x 3. No acute distress. Morbidly obese. EYES: PERRL, EOMI. Anicteric. HENT: Moist mucous membranes. LUNGS: Clear to auscultation bilaterally. CARDIOVASCULAR: Regular rate and rhythm. ABDOMEN: Soft, nontender and nondistended. EXTREMITIES: No edema. NEUROLOGIC: No focal neurological deficits. SKIN: Warm, dry. laboratory and microbiology Laboratory Tests 12/25/24 05:58 Test 12/25/24 05:58 Range/Units Serum Glucose 113 H 74-106 mg/dL Problem List Chest pain, rule out coronary ischemia. Hypertensive urgency, resolved. History of SVT. Asthma. Morbid obesity. History of tobacco use. Assessment/Plan Continued all current supportive medical care. Amlodipine. Plavix. IV Hydralazine for SBP > 160. Morphine and Oxycodone for pain management. Nitro SL. Additional plan as per the hospital course. Plan discussed with: Patient VALERIE CANALES MD Dec 29, 2024 13:40
--- NOTE | 2024-12-29 16:00 | DVHPN2 ---
Subjective Patient is Lexiscan came back positive. Dr. Deonte Torres notified me and he will call Dr. Castañeda for possible angiogram. Reviewed: Care Plan Changes from previous H/P or p: No Changes Eyes: No Pain, No Vision change, No Conjunctivae inflammation, No Eyelid inflammation, No Other, No Redness ENT: No Ear pain, No Ear discharge, No Nose pain, No Nose discharge, No Nose congestion, No Mouth pain, No Mouth swelling, No Throat pain, No Throat swelling, No Other Cardiovascular: Chest Pain; No Palpitations, No Orthopnea, No Paroxysmal Noc. Dyspnea, No Edema, No Lt Headedness; Other (Hypertension) Respiratory: No Cough, No Dry, No Shortness of breath, No SOB with excertion, No Wheezing, No Hemoptysis, No Pleuritic Pain, No Sputum, No Other Gastrointestinal: No Nausea, No Vomiting, No Abdominal Pain, No Diarrhea, No Constipation, No Melena, No Hematochezia, No Other Genitourinary: No Dysuria, No Frequency, No Incontinence, No Hematuria, No Retention, No Other Musculoskeletal: No other, No neck pain, No shoulder pain, No arm pain, No back pain, No hand pain, No leg pain, No foot pain Skin: No Rash, No Lesions, No Jaundice, No Bruising, No Other Objective Vitals Vital Signs Date Time Temp Pulse Resp B/P (MAP) Pulse Ox O2 Delivery O2 Flow Rate FiO2 12/29/24 13:00 97.8 77 18 118/70 (86) 97 97.8 12/29/24 08:00 Room Air* 0 21 Intake/Output Intake and Output 12/29/24 06:59 Intake Total 1700 ml Balance 1700 ml Intake Oral 1700 ml # Voids 8 # Bowel Movements 3 Exam HEENT pupils are reactive Neck is supple CV is S1-S2 regular rate and rhythm Respiratory are clear GI positive bowel sound Extremity 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 Medications Current Medications Medications Dose Ordered Sig/Cezar Route Start Time Stop Time Status Last Admin Dose Admin Clopidogrel Bisulfate 75 mg DAILY PO 12/25/24 10:00 12/29/24 10:05 75 MG Hydralazine HCl 10 mg Q6HP PRN IV 12/24/24 20:30 12/25/24 17:30 10 MG Amlodipine Besylate 10 mg DAILY PO 12/25/24 10:00 12/29/24 10:05 10 MG Sodium Chloride 10 ml Q8HR IV 12/24/24 22:00 12/29/24 15:08 10 ML Ondansetron HCl 4 mg Q4HP PRN IV 12/24/24 20:30 12/27/24 13:50 4 MG Docusate Sodium 100 mg BIDPRN PRN PO 12/24/24 20:30 Acetaminophen 325 mg Q6HP PRN PO 12/24/24 20:30 12/26/24 08:52 325 MG Morphine Sulfate 2 mg Q4HPRN PRN IV 12/24/24 21:30 12/28/24 20:32 2 MG Nitroglycerin 0.4 mg Q5MINP PRN SL 12/24/24 22:15 Morphine Sulfate 2 mg Q30M PRN IV 12/24/24 22:30 Chlorthalidone 25 mg DAILY@BREAKFAST PO 12/26/24 08:00 12/29/24 08:40 25 MG Oxycodone/ Acetaminophen 1 tab Q6HP PRN PO 12/26/24 14:45 12/27/24 21:55 1 TAB Carisoprodol 350 mg TID PO 12/27/24 22:00 12/29/24 13:38 350 MG Laboratory Results Laboratory Tests 12/25/24 05:58 Urinalysis Test 12/25/24 09:37 Urine Color Light-yellow (Yellow) Urine Clarity Turbid (Clear) H Urine pH 5.5 (5.0-9.0) Urine Specific [place] 1.022 (1.001-1.035) Urine Protein Negative (Negative) Urine Ketones Negative (Negative) Urine Blood Negative /uL (Negative) Urine Nitrite Negative (Negative) Urine Bilirubin Negative (Negative) Urine Urobilinogen Normal mg/dL (Negative) Urine Leukocyte Esterase 1+ /uL (Negative) Urine RBC 2 /hpf (0 - 4) Urine Microscopic WBC 6 /HPF (0-5) H Urine Squamous Epithelial Cells Few /hpf (<5) Urine Bacteria None seen /hpf (None Seen) Urine Mucus Few (None Seen) Urine Glucose Normal mg/dL (Normal) Assessment/Plan Assessment/Plan 68-year-old female with a known history of hypertension, chronic asthma, morbid obesity class III who initially presented to the hospital with chest pain and uncontrolled blood pressure found to have 1. Chest pain rule out acute CO 2. Hypertensive urgency 3. Chronic asthma 4. Chronic tobacco use disorder 5. Morbid obesity class III 6. Acute on chronic back pain -patient's Lexiscan is positive, may need coronary angiogram has been cardiology. pain meds as needed, cardiology follow up with Plan discussed with: Patient Date of Service: Dec 29, 2024 Billing Provider: HALLEY ORTIZ MD Common Visit Codes: [id number] INP/OBS CARE(MOD) HALLEY ORTIZ MD Dec 29, 2024 16:00
--- NOTE | 2024-12-29 17:14 | DVHPN2 ---
Progress Note Date Seen: Dec 29, 2024 Medical Necessity Reason Pt with a Central, PICC or Fol: No Subjective Patient reports: Feels better Other Systems: pt seen with RN Objective vital signs Vital Sign Date Time Temp Pulse Resp B/P (MAP) Pulse Ox O2 Delivery O2 Flow Rate FiO2 12/29/24 16:14 104 20 155/83 12/29/24 13:00 97.8 97 97.8 12/29/24 08:00 Room Air* 0 21 Total Intake and Output 12/28/24 12/28/24 12/29/24 15:00 23:00 07:00 Intake Total 900 ml 800 ml Balance 900 ml 800 ml medications Current Medications Medications Dose Ordered Sig/Cezar Route Start Time Stop Time Status Last Admin Dose Admin Clopidogrel Bisulfate 75 mg DAILY PO 12/25/24 10:00 12/29/24 10:05 75 MG Hydralazine HCl 10 mg Q6HP PRN IV 12/24/24 20:30 12/25/24 17:30 10 MG Amlodipine Besylate 10 mg DAILY PO 12/25/24 10:00 12/29/24 10:05 10 MG Sodium Chloride 10 ml Q8HR IV 12/24/24 22:00 12/29/24 15:08 10 ML Ondansetron HCl 4 mg Q4HP PRN IV 12/24/24 20:30 12/27/24 13:50 4 MG Docusate Sodium 100 mg BIDPRN PRN PO 12/24/24 20:30 Acetaminophen 325 mg Q6HP PRN PO 12/24/24 20:30 12/26/24 08:52 325 MG Morphine Sulfate 2 mg Q4HPRN PRN IV 12/24/24 21:30 12/29/24 16:14 2 MG Nitroglycerin 0.4 mg Q5MINP PRN SL 12/24/24 22:15 Morphine Sulfate 2 mg Q30M PRN IV 12/24/24 22:30 Chlorthalidone 25 mg DAILY@BREAKFAST PO 12/26/24 08:00 12/29/24 08:40 25 MG Oxycodone/ Acetaminophen 1 tab Q6HP PRN PO 12/26/24 14:45 12/27/24 21:55 1 TAB Carisoprodol 350 mg TID PO 12/27/24 22:00 12/29/24 13:38 350 MG Examination: GENERAL:Abnormal, HEENT:Abnormal, LUNGS:Abnormal, CVS:Abnormal, ABDOMEN:Abnormal laboratory and microbiology Laboratory Tests 12/25/24 05:58 Test 12/25/24 05:58 Range/Units Serum Glucose 113 H 74-106 mg/dL Problem List/Assessment/Plan Problem List/Assessment/Plan abnromal stress suspected breast artifact massive obesity bmi 53 htn hl c spine disease recommend plavix, statin and outpt Coronary CT high suspicioun for breast artifact and pt is high risk for cv complications given morbid obesity and arthritis/ chronic pain pt agrees to plan cv cleared for dc home Plan discussed with: Patient Dietary Evaluation Review Comments: 1. Refer to CDE for weight mangement on dc 2. Continue current POC Expected Outcomes/Goals: To meet >75% estimated needs Fu 3-5 days Date of Service: Dec 29, 2024 Billing Provider: MARLEN ART MD Common Visit Codes: NOT BILLABLE MARLNE ART MD Dec 29, 2024 17:14
[2024-12-30] VITALS (8 sets, daily range): BP systolic 119–158; BP diastolic 63–99; PULSE 82–100; RESP 17–20; TEMP 97.3–98.7; O2SAT 92–99
[2024-12-30 08:30] LABS: Basophils # (auto) 0 10 ^3/uL (0-0.2); Basophils % (auto) 0.8 % (0.0-2.0); Eosinophils # (auto) 0.3 10 ^3/uL (0-0.8); Eosinophils % (auto) 5.3 % (0.0-7.0); Hematocrit 41.2 % (36.0-46.0); Hemoglobin 13.6 g/dL (12.2-16.2); Lymphocytes # (auto) 2.3 10 ^3/uL (0.4-5.4); Lymphocytes % (auto) 42.4 % (10.0-50.0); Mean Corpuscular Hemoglobin 26.8 pg (28.0-32.0); Mean Corpuscular Volume 81.1 fL (80.0-100.0); Monocytes # (auto) 0.3 10 ^3/uL (0-1.3); Monocytes % (auto) 6.1 % (0.0-12.0); Neutrophils # (auto) 2.4 10 ^3/uL (1.6-8.6); Neutrophils % (auto) 45.4 % (37.0-80.0); Nucleated Red Blood Cells % 0.1 %; Platelet Count (auto) 303 10^3/uL (140-450); Red Blood Cells 5.08 10^6/uL (4.0-5.20); Red Cell Distribution Width 14.5 % (11.8-14.3); White Blood Cell 5.3 10^3/uL (4.4-10.8)
[2024-12-30 08:43] LABS: INR 0.99 (0.9-1.15); Partial Thromboplastin Time 28.7 SEC (24.5-34.5); Prothrombin Time 10.5 sec (9.3-11.8)
[2024-12-30] MEDS: SODIUM CHLORIDE 0.9% 500 ML IV ONE (10:15)
[2024-12-30] MEDS: METOPROLOL TARTRATE 1MG/1ML-5ML VIAL IV ONE (10:36)
[2024-12-30 11:02] LABS: Anion Gap 11 (5-15); Carbon Dioxide 25 mmol/L (20-31); Chloride 101 mmol/L (98-107); Potassium 3.9 mmol/L (3.5-5.1); Sodium 137 mmol/L (136-145)
[2024-12-30 11:03] LABS: Calcium 9.9 mg/dL (8.7-10.4)
[2024-12-30 11:08] LABS: BUN/Creatinine Ratio 15.6 (10.0-20.0); Blood Urea Nitrogen 10 mg/dL (9-23); Glucose 125 mg/dL (74-106)
[2024-12-30] MEDS ORDERED: dilTIAZem 120MG ER CAP PO SCH (15:00)
--- NOTE | 2024-12-30 15:00 | DVHPN2 ---
Subjective Cardio evaluated the patient, patient was recommended to be have medical management, no angiogram. Reviewed: Care Plan Changes from previous H/P or p: No Changes Eyes: No Pain, No Vision change, No Conjunctivae inflammation, No Eyelid inflammation, No Other, No Redness ENT: No Ear pain, No Ear discharge, No Nose pain, No Nose discharge, No Nose congestion, No Mouth pain, No Mouth swelling, No Throat pain, No Throat swelling, No Other Cardiovascular: Chest Pain; No Palpitations, No Orthopnea, No Paroxysmal Noc. Dyspnea, No Edema, No Lt Headedness; Other (Hypertension) Respiratory: No Cough, No Dry, No Shortness of breath, No SOB with excertion, No Wheezing, No Hemoptysis, No Pleuritic Pain, No Sputum, No Other Gastrointestinal: No Nausea, No Vomiting, No Abdominal Pain, No Diarrhea, No Constipation, No Melena, No Hematochezia, No Other Genitourinary: No Dysuria, No Frequency, No Incontinence, No Hematuria, No Retention, No Other Musculoskeletal: No other, No neck pain, No shoulder pain, No arm pain, No back pain, No hand pain, No leg pain, No foot pain Skin: No Rash, No Lesions, No Jaundice, No Bruising, No Other Objective Vitals Vital Signs Date Time Temp Pulse Resp B/P (MAP) Pulse Ox O2 Delivery O2 Flow Rate FiO2 12/30/24 13:00 98.7 82 18 132/86 (101) 96 98.7 12/30/24 08:00 Room Air* 0 21 Intake/Output Intake and Output 12/30/24 07:00 Intake Total 1710 ml Balance 1710 ml Intake Oral 1710 ml # Voids 11 # Bowel Movements 2 Exam HEENT pupils are reactive Neck is supple CV is S1-S2 regular rate and rhythm Respiratory are clear GI positive bowel sound 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 Medications Current Medications Medications Dose Ordered Sig/Cezar Route Start Time Stop Time Status Last Admin Dose Admin Clopidogrel Bisulfate 75 mg DAILY PO 12/25/24 10:00 12/30/24 09:32 75 MG Hydralazine HCl 10 mg Q6HP PRN IV 12/24/24 20:30 12/25/24 17:30 10 MG Sodium Chloride 10 ml Q8HR IV 12/24/24 22:00 12/30/24 05:52 10 ML Ondansetron HCl 4 mg Q4HP PRN IV 12/24/24 20:30 12/27/24 13:50 4 MG Docusate Sodium 100 mg BIDPRN PRN PO 12/24/24 20:30 Acetaminophen 325 mg Q6HP PRN PO 12/24/24 20:30 12/26/24 08:52 325 MG Morphine Sulfate 2 mg Q4HPRN PRN IV 12/24/24 21:30 12/30/24 04:24 2 MG Nitroglycerin 0.4 mg Q5MINP PRN SL 12/24/24 22:15 Morphine Sulfate 2 mg Q30M PRN IV 12/24/24 22:30 Chlorthalidone 25 mg DAILY@BREAKFAST PO 12/26/24 08:00 12/30/24 09:32 25 MG Oxycodone/ Acetaminophen 1 tab Q6HP PRN PO 12/26/24 14:45 12/27/24 21:55 1 TAB Carisoprodol 350 mg TID PO 12/27/24 22:00 12/30/24 05:51 350 MG Diltiazem HCl 180 mg DAILY PO 12/31/24 10:00 Laboratory Results Laboratory Tests 12/30/24 08:07 Chemistry Test 12/30/24 08:07 Calcium Level 9.9 mg/dL (8.7-10.4) Coagulation Test 12/30/24 08:07 Prothrombin Time 10.5 sec (9.3-11.8) Prothrombin Time INR 0.99 (0.9-1.15) Activated Partial Thromboplast Time 28.7 SEC (24.5-34.5) Urinalysis Test 12/25/24 09:37 Urine Color Light-yellow (Yellow) Urine Clarity Turbid (Clear) H Urine pH 5.5 (5.0-9.0) Urine Specific [place] 1.022 (1.001-1.035) Urine Protein Negative (Negative) Urine Ketones Negative (Negative) Urine Blood Negative /uL (Negative) Urine Nitrite Negative (Negative) Urine Bilirubin Negative (Negative) Urine Urobilinogen Normal mg/dL (Negative) Urine Leukocyte Esterase 1+ /uL (Negative) Urine RBC 2 /hpf (0 - 4) Urine Microscopic WBC 6 /HPF (0-5) H Urine Squamous Epithelial Cells Few /hpf (<5) Urine Bacteria None seen /hpf (None Seen) Urine Mucus Few (None Seen) Urine Glucose Normal mg/dL (Normal) Assessment/Plan Assessment/Plan 68-year-old female with a known history of hypertension, chronic asthma, morbid obesity class III who initially presented to the hospital with chest pain and uncontrolled blood pressure found to have 1. Chest pain with abnormal Scan, medical management as per Cardiology 2. Hypertensive urgency, blood pressure is better controlled 3. Sinus tachycardia with a episode of dizziness, started on Cardizem 4. Chronic tobacco use disorder 5. Morbid obesity class III 6. Acute on chronic back pain -patient's Lexiscan is positive, no angiogram because of the weight issues just medical management as per Cardiology -Cardizem has been started for sinus tachycardia, patient will be monitored closely possible discharge in a.m.. Plan discussed with: Patient Date of Service: Dec 30, 2024 Billing Provider: HALLEY ORTIZ MD Common Visit Codes: [id number] INP/OBS CARE(MOD) HALLEY ORTIZ MD Dec 30, 2024 15:00
[2024-12-30] MEDS: dilTIAZem HCL 180MG ER CAP PO SCH (15:52)
--- NOTE | 2024-12-30 23:48 | DVHPN2 ---
Progress Note - Dictate Date Seen: Dec 30, 2024 Medical Necessity Reason Pt with a Central, PICC or Fol: No Subjective Patient was seen and evaluated in follow up. Patient is complaining of lower back pain. Patient is recommended for medical management, no angiogram. The patient is high risk for CV complications given morbid obesity and arthritis/ chronic pain. Telemetry reviewed. vital signs Vital Sign Date Time Temp Pulse Resp B/P (MAP) Pulse Ox O2 Delivery O2 Flow Rate FiO2 12/30/24 10:36 105 135/84 12/30/24 09:00 98.6 20 99 98.6 12/30/24 08:00 Room Air* 0 21 Total Intake and Output 12/29/24 12/29/24 12/30/24 15:00 23:00 07:00 Intake Total 230 ml 640 ml 840 ml Balance 230 ml 640 ml 840 ml medications Current Medications Medications Dose Ordered Sig/Cezar Route Start Time Stop Time Status Last Admin Dose Admin Clopidogrel Bisulfate 75 mg DAILY PO 12/25/24 10:00 12/30/24 09:32 75 MG Hydralazine HCl 10 mg Q6HP PRN IV 12/24/24 20:30 12/25/24 17:30 10 MG Sodium Chloride 10 ml Q8HR IV 12/24/24 22:00 12/30/24 05:52 10 ML Ondansetron HCl 4 mg Q4HP PRN IV 12/24/24 20:30 12/27/24 13:50 4 MG Docusate Sodium 100 mg BIDPRN PRN PO 12/24/24 20:30 Acetaminophen 325 mg Q6HP PRN PO 12/24/24 20:30 12/26/24 08:52 325 MG Morphine Sulfate 2 mg Q4HPRN PRN IV 12/24/24 21:30 12/30/24 04:24 2 MG Nitroglycerin 0.4 mg Q5MINP PRN SL 12/24/24 22:15 Morphine Sulfate 2 mg Q30M PRN IV 12/24/24 22:30 Chlorthalidone 25 mg DAILY@BREAKFAST PO 12/26/24 08:00 12/30/24 09:32 25 MG Oxycodone/ Acetaminophen 1 tab Q6HP PRN PO 12/26/24 14:45 12/27/24 21:55 1 TAB Carisoprodol 350 mg TID PO 12/27/24 22:00 12/30/24 05:51 350 MG Diltiazem HCl 180 mg DAILY PO 12/31/24 10:00 objective GENERAL: Alert and oriented x 3. No acute distress. Morbidly obese. EYES: PERRL, EOMI. Anicteric. HENT: Moist mucous membranes. LUNGS: Clear to auscultation bilaterally. CARDIOVASCULAR: Regular rate and rhythm. ABDOMEN: Soft, nontender and nondistended. EXTREMITIES: No edema. NEUROLOGIC: No focal neurological deficits. SKIN: Warm, dry. laboratory and microbiology Laboratory Tests 12/30/24 08:07 Test 12/30/24 08:07 Range/Units Serum Glucose 125 H 74-106 mg/dL Problem List Chest pain. Hypertensive urgency, resolved. History of SVT. Asthma. Morbid obesity. History of tobacco use. HTN. Assessment/Plan Continued all current supportive medical care. Amlodipine. Plavix. IV Hydralazine for SBP > 160. Morphine and Oxycodone for pain management. Nitro SL. Diltiazem. Metoprolol. Additional plan as per the hospital course. Dietary Evaluation Review Comments: 1. Refer to CDE for weight mangement on dc 2. Continue current POC Expected Outcomes/Goals: To meet >75% estimated needs Fu 3-5 days Plan discussed with: Patient VALERIE CANALES MD Dec 30, 2024 11:41
[2024-12-31 01:00] VITALS: BP 144/77; PULSE 96; RESP 18; TEMP 98; O2SAT 97
[2024-12-31 05:00] VITALS: BP_SYST 122; BP_SYST 145; BP_DIAS 55; BP_DIAS 62; PULSE 75; PULSE 90; RESP 18; TEMP 98; O2SAT 97; O2SAT 98
[2024-12-31 08:00] VITALS: PULSE 77; O2SAT 97
[2024-12-31 09:47] VITALS: BP 146/92; PULSE 86; RESP 17; TEMP 97.8; O2SAT 95
[2024-12-31] MEDS ORDERED: dilTIAZem 120MG ER CAP PO SCH (10:00)
[2024-12-31] MEDS ORDERED: DILT-102 PO (12:33)
[2024-12-31] MEDS ORDERED: CLOP75TA70 PO (12:33)
[2024-12-31] MEDS ORDERED: ATOR40TA52 PO (12:33)
--- NOTE | 2024-12-31 12:35 | DVHDS2 ---
Discharge Summary Date of Admission Dec 24, 2024 at 22:12 Date of Discharge: Dec 31, 2024 Labs/Diagnostic Data: Laboratory Results Test 12/30/24 08:07 12/25/24 09:37 12/25/24 05:58 12/24/24 22:51 White Blood Count 5.3 10^3/uL (4.4-10.8) Red Blood Count 5.08 10^6/uL (4.0-5.20) Hemoglobin 13.6 g/dL (12.2-16.2) Hematocrit 41.2 % (36.0-46.0) Mean Corpuscular Volume 81.1 fL (80.0-100.0) Mean Corpuscular Hemoglobin 26.8 pg (28.0-32.0) Mean Corpuscular Hemoglobin Concent 33.0 g/dL (32.0-36.0) Red Cell Distribution Width 14.5 % (11.8-14.3) Platelet Count 303 10^3/uL (140-450) Mean Platelet Volume 7.6 fL (6.9-10.8) Neutrophils (%) (Auto) 45.4 % (37.0-80.0) Lymphocytes (%) (Auto) 42.4 % (10.0-50.0) Monocytes (%) (Auto) 6.1 % (0.0-12.0) Eosinophils (%) (Auto) 5.3 % (0.0-7.0) Basophils (%) (Auto) 0.8 % (0.0-2.0) Neutrophils # (Auto) 2.4 10 ^3/uL (1.6-8.6) Lymphocytes # (Auto) 2.3 10 ^3/uL (0.4-5.4) Monocytes # (Auto) 0.3 10 ^3/uL (0-1.3) Eosinophils # (Auto) 0.3 10 ^3/uL (0-0.8) Basophils # (Auto) 0 10 ^3/uL (0-0.2) Nucleated Red Blood Cells 0.1 % Prothrombin Time 10.5 sec (9.3-11.8) Prothrombin Time INR 0.99 (0.9-1.15) Activated Partial Thromboplast Time 28.7 SEC (24.5-34.5) Sodium Level 137 mmol/L (136-145) Potassium Level 3.9 mmol/L (3.5-5.1) Chloride Level 101 mmol/L (98-107) Carbon Dioxide Level 25 mmol/L (20-31) Anion Gap 11 (5-15) Blood Urea Nitrogen 10 mg/dL (9-23) Creatinine 0.64 mg/dL (0.550-1.02) Glomerular Filtration Rate Calc 107 mL/min (>90) BUN/Creatinine Ratio 15.6 (10.0-20.0) Serum Glucose 125 mg/dL (74-106) Calcium Level 9.9 mg/dL (8.7-10.4) Urine Color Light-yellow (Yellow) Urine Clarity Turbid (Clear) Urine pH 5.5 (5.0-9.0) Urine Specific [place] 1.022 (1.001-1.035) Urine Protein Negative (Negative) Urine Ketones Negative (Negative) Urine Blood Negative /uL (Negative) Urine Nitrite Negative (Negative) Urine Bilirubin Negative (Negative) Urine Urobilinogen Normal mg/dL (Negative) Urine Leukocyte Esterase 1+ /uL (Negative) Urine RBC 2 /hpf (0 - 4) Urine Microscopic WBC 6 /HPF (0-5) Urine Squamous Epithelial Cells Few /hpf (<5) Urine Bacteria None seen /hpf (None Seen) Urine Mucus Few (None Seen) Urine Glucose Normal mg/dL (Normal) Urine Opiates Screen Pos (NEGATIVE) Urine Fentanyl Screen Neg (NEGATIVE) Urine Barbiturates Screen Neg (NEGATIVE) Urine Phencyclidine Screen Neg (NEGATIVE) Urine Amphetamines Screen Neg (NEGATIVE) Urine Benzodiazepines Screen Neg (NEGATIVE) Urine Cocaine Screen Neg (NEGATIVE) Urine Cannabinoids Screen Neg (NEGATIVE) Hemoglobin A1c 6.2 % A1C (<5.7) Total Bilirubin 0.7 mg/dL (0.2-1.0) Aspartate Amino Transferase (AST) < 8 U/L (13-40) Alanine Aminotransferase (ALT) 13 U/L (7-40) Alkaline Phosphatase 80 U/L (46-116) Total Protein 7.9 g/dL (5.7-8.2) Albumin 4.2 g/dL (3.2-4.8) Triglycerides Level 115 mg/dL (< 150) Cholesterol Level 167 mg/dL (< 200) LDL Cholesterol 107 mg/dL (< 100) HDL Cholesterol 43 mg/dL (40-59) Thyroid Stimulating Hormone (TSH) 1.56 uIU/mL (0.55-4.78) Beta HCG, Quantitative 1.2 mIU/mL (1.5-4.2) Troponin I High Sensitivity < 3 ng/L (</=34) Other Laboratory Tests 12/30/24 08:07 Brief Hx & Hospital Course: 68-year-old female with a known history of hypertension, chronic asthma, morbid obesity class III who initially presented to the hospital with chest pain and uncontrolled blood pressure , eventually admitted to tele floor. Patient was seen by Cardiology who recommended Cardiolite stress test. . Cardiolite stress test came back questionable positive with a questionable breast artifact. Dr. Castañeda and Dr. Torres was seen in the patients who recommended medical management. No indication for angiogram. Patient will be medically managed with a Plavix and statin and Cardizem. Patient's hospital course was eventful for hypertensive urgency and sinus tachycardia. Patient is currently stable to be discharged. Patient is requesting narcotics as well as muscle relaxant which will be prescribed. Patient's can see orthopedic spine surgery for acute on chronic back pain as an outpatient. Condition at Discharge: Stable Final Diagnosis/Problems List 68-year-old female with a known history of hypertension, chronic asthma, morbid obesity class III who initially presented to the hospital with chest pain and uncontrolled blood pressure found to have 1. Chest pain with abnormal Scan, medical management as per Cardiology 2. Hypertensive urgency, blood pressure is better controlled 3. Sinus tachycardia with a episode of dizziness, started on Cardizem 4. Chronic tobacco use disorder 5. Morbid obesity class III 6. Acute on chronic back pain Discharge Disposition: Home SNF Discharge Will this Physician continue t: No Discharge Instruct/Medications Diet: Cardiac 2g Na,low cholest Activity: See Comment Activity comment: No driving, no planning having surgery, no signing of legal documents while she is on pain medications. Follow Up/Referral: With the PCP in 1-2 weeks Follow up with the Cardiology Dr. Castañeda in 1-2 weeks Follow up with the orthopedic spine surgery in 1-2 weeks Medications: Resume home medication, added Soma earlier, statin, Plavix, Cardizem. Discharge Statement: "Patient was advised to return to the ER or call 911 if any headaches, dizziness, shortness of breath, chest pain, abdominal pain, bleeding, fevers, or worsening of medical condition. Patient was counseled about treatment plan, medications, possible side effects, patientverbalized understanding. All questions were answered to the best of my ability. This discharge took greater then 30 minutes in planning, reviewing documentation, counseling the patient, and discussing with other team members." ASSESSMENT ASSESSMENT Assessment 68-year-old female with a known history of hypertension, chronic asthma, morbid obesity class III who initially presented to the hospital with chest pain and uncontrolled blood pressure found to have 1. Chest pain with abnormal Scan, medical management as per Cardiology 2. Hypertensive urgency, blood pressure is better controlled 3. Sinus tachycardia with a episode of dizziness, started on Cardizem 4. Chronic tobacco use disorder 5. Morbid obesity class III 6. Acute on chronic back pain -patient's Lexiscan is positive, no Date of Service: Dec 31, 2024 Billing Provider: HALLEY ORTIZ MD Common Visit Codes: [id number] DISCH DAY >30min HALLEY ORTIZ MD Dec 31, 2024 12:35
--- NOTE | 2024-12-31 13:28 | DVHPN2 ---
Progress Note - Dictate Date Seen: Dec 31, 2024 Medical Necessity Reason Pt with a Central, PICC or Fol: No Subjective Patient was seen and evaluated in follow up. No overnight events. Patient is complaining of dizziness with ambulation. Patient is stable on room air. Patient is cardiac stable for discharge. Telemetry reviewed. vital signs Vital Sign Date Time Temp Pulse Resp B/P (MAP) Pulse Ox O2 Delivery O2 Flow Rate FiO2 12/31/24 09:47 97.8 86 17 146/92 (110) 95 97.8 12/31/24 08:00 Room Air* 0 21 Total Intake and Output 12/30/24 12/30/24 12/31/24 15:00 23:00 07:00 Intake Total 360 ml 1200 ml Balance 360 ml 1200 ml medications Current Medications Medications Dose Ordered Sig/Cezar Route Start Time Stop Time Status Last Admin Dose Admin Clopidogrel Bisulfate 75 mg DAILY PO 12/25/24 10:00 12/31/24 08:43 75 MG Hydralazine HCl 10 mg Q6HP PRN IV 12/24/24 20:30 12/25/24 17:30 10 MG Sodium Chloride 10 ml Q8HR IV 12/24/24 22:00 12/31/24 05:39 10 ML Ondansetron HCl 4 mg Q4HP PRN IV 12/24/24 20:30 12/27/24 13:50 4 MG Docusate Sodium 100 mg BIDPRN PRN PO 12/24/24 20:30 Acetaminophen 325 mg Q6HP PRN PO 12/24/24 20:30 12/26/24 08:52 325 MG Morphine Sulfate 2 mg Q4HPRN PRN IV 12/24/24 21:30 12/31/24 05:41 2 MG Nitroglycerin 0.4 mg Q5MINP PRN SL 12/24/24 22:15 Morphine Sulfate 2 mg Q30M PRN IV 12/24/24 22:30 Chlorthalidone 25 mg DAILY@BREAKFAST PO 12/26/24 08:00 12/31/24 08:42 25 MG Oxycodone/ Acetaminophen 1 tab Q6HP PRN PO 12/26/24 14:45 12/31/24 08:43 1 TAB Carisoprodol 350 mg TID PO 12/27/24 22:00 12/31/24 05:39 350 MG Diltiazem HCl 180 mg DAILY PO 12/30/24 15:32 12/31/24 08:43 180 MG objective GENERAL: Alert and oriented x 3. No acute distress. Morbidly obese. EYES: PERRL, EOMI. Anicteric. HENT: Moist mucous membranes. LUNGS: Clear to auscultation bilaterally. CARDIOVASCULAR: Regular rate and rhythm. ABDOMEN: Soft, nontender and nondistended. EXTREMITIES: No edema. NEUROLOGIC: No focal neurological deficits. SKIN: Warm, dry. laboratory and microbiology Laboratory Tests 12/30/24 08:07 Test 12/30/24 08:07 Range/Units Serum Glucose 125 H 74-106 mg/dL Problem List Chest pain. Hypertensive urgency, resolved. History of SVT. Asthma. Morbid obesity. History of tobacco use. HTN. Assessment/Plan Continued all current supportive medical care. Amlodipine. Plavix. IV Hydralazine for SBP > 160. Morphine and Oxycodone for pain management. Nitro SL. Diltiazem. Metoprolol. Additional plan as per the hospital course. Dietary Evaluation Review Comments: 1. Refer to CDE for weight mangement on dc 2. Continue current POC Expected Outcomes/Goals: To meet >75% estimated needs Fu 3-5 days Plan discussed with: Patient VALERIE CANALES MD Dec 31, 2024 12:24
[2024-12-31] MEDS ORDERED: PERCOT PO (13:55)
[2024-12-31 14:10] VITALS: BP 146/92; PULSE 86; TEMP 36.6
[2024-12-31 15:16] VITALS: BP 141/92; PULSE 90; RESP 18; O2SAT 97
== END 2024-12-31 16:15 | disposition home or self-care (01) | DRG 199 ==
LOC: EDBD 19:25 → ER 19:25 → OVERFLOW 22:12 → TELE-WESTW 12-25 16:56
PROVIDERS: ADMIT Hospitalist; ATTEND Hospitalist
DX: I16.0 Hypertensive urgency (principal); Z68.43 Body mass index [BMI] 50.0-59.9, adult; E66.813 Obesity, class 3; I25.9 Chronic ischemic heart disease, unspecified; J45.909 Unspecified asthma, uncomplicated; G89.29 Other chronic pain; G43.909 Migraine, unspecified, not intractable, without status migrainosus; F17.200 Nicotine dependence, unspecified, uncomplicated; Z88.6 Allergy status to analgesic agent; Z79.899 Other long term (current) drug therapy; Z90.710 Acquired absence of both cervix and uterus; Z98.891 History of uterine scar from previous surgery; Z82.5 Family history of asthma and other chronic lower respiratory diseases; Z82.49 Family history of ischemic heart disease and other diseases of the circulatory system; Z83.3 Family history of diabetes mellitus; Z98.51 Tubal ligation status
CPT/HCPCS: 36415; 71045; 72148; 78452; 80048; 80053; 80061; 80307; 81001; 83036; 84443; 84484; 84702; 85025; 85610; 85730; 93005; 93017; 94640; 96374; 96375; 99291; G0378; J2405

== ENCOUNTER 2025-02-04 11:03 | Inpatient (IN) | payer MEDICAID ==
[~2025-02-04] VITALS: Ht 165.1 cm; Wt 147.7 kg
[~2025-02-04 11:03] MED LIST changes: +ATOR40TA52 PO; +CARI-579 PO; +CLOP75TA70 PO; +DILT-102 PO; -HYDR-4902 PO; +PERCOT PO
--- NOTE | 2025-02-04 11:27 | ED.PDOC ---
History of Present Illness HPI Comments 49-year-old female presents with a chief complaint of chest pain x 0400 this morning onset with associated SOB and headache. Patient states that she woke up at 0400 with 10/10 left sided chest pain, nonradiating, nonexertional, describes as sharp. Patient states that now she is also having SOB with some nausea. Latest complaint is having a bilateral headache that she rates a 10/10 as well. Time Seen by MD: 11:24 Reviewed Notes: Medications, Allergies Allergies: Coded Allergies: Aspirin (Verified Allergy, Unknown, 12/14/24) Home Meds Active Scripts Oxycodone W/ Acetaminophen (Percocet 5/325MG) 1 Tab Tb, 1 TAB PO BID, #10 TAB Prov:HALLEY ORTIZ MD 12/31/24 Atorvastatin Calcium (ATORVASTATIN CALCIUM) 40 Mg Tab, 1 TAB PO DAILY, #30 TAB 5 Refills Prov:HALLEY ORTIZ MD 12/31/24 Diltiazem HCl (Diltiazem Hydrochloride E) 180 Mg Cap, 180 MG PO DAILY for 30 Days, #30 CAP Prov:HALLEY ORTIZ MD 12/31/24 Clopidogrel Bisulfate (CLOPIDOGREL) 75 Mg Tab, 75 MG PO DAILY for 30 Days, #30 TAB Prov:HALLEY ORTIZ MD 12/31/24 Carisoprodol (Carisoprodol) 350 Mg Tab, 350 MG PO TID, #20 TAB Prov:HALLEY ORTIZ MD 12/27/24 Methocarbamol (Methocarbamol) 500 Mg Tab, 500 MG PO QID for 30 Days, #120 TAB Prov:VANNA BALLARD 12/16/24 Losartan Potassium (Losartan Potassium) 50 Mg Tab, 50 MG PO DAILY for 30 Days, #30 TAB Prov:VANNA BALLARD 12/16/24 Hctz (Hydrochlorothiazide) 25 Mg Tab, 12.5 MG PO DAILY for 30 Days, #30 TAB Prov:VANNA BALLARD 12/16/24 Acetaminophen (Acetaminophen) 325 Mg Tab, 325 MG PO Q4HPRN PRN for 30 Days, #150 TAB Prov:VANNA BALLARD 12/16/24 Gabapentin (Gabapentin) 100 Mg Cap, 1 CAP PO TID for 90 Days, #90 CAP 2 Refills Prov:CHELSIE DORAN MD 12/16/24 Information Source: Patient Mode of Arrival: Ambulatory Severity: Moderate Timing: Hours Duration: Since onset Prehospital treatment: None Past Medical History PAST MEDICAL HISTORY: Arthritis, Asthma, HTN, Liver, [place] Surgical History: , Hysterectomy 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: No 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 Family History Family History: Reviewed,noncontributory to illness, Family hx of heart arin Social History Smoker: Quit Less Than 1 Year Alcohol: Denies ETOH Use Drugs: Denies Drug Use Lives In: Home Constitutional: denies: chills, diaphoresis, fatigue, fever, malaise, sweats, weakness, others EENTM: denies: blurred vision, double vision, ear bleeding, ear discharge, ear drainage, ear pain, ear ringing, eye pain, eye redness, hearing loss, mouth pain, mouth swelling, nasal discharge, nose bleeding, nose congestion, nose pain, photophobia, tearing, throat pain, throat swelling, voice changes, others Respiratory: reports: shortness of breath; denies: cough, hemoptysis, orthopnea, SOB at rest, SOB with excertion, stridor, wheezing, others Cardiovascular: reports: chest pain; denies: dizzy spells, diaphoresis, Dyspnea on exertion, edema, irregular heart beat, left arm pain, lightheadedness, palpitations, PND, syncope, others Gastrointestinal: denies: abdomen distended, abdominal pain, blood streaked bowels, constipated, diarrhea, dysphagia, difficulty swallowing, hematemesis, melena, nausea, poor appetite, poor fluid intake, rectal bleeding, rectal pain, vomiting, others Genitourinary: denies: abnormal vagina bleeding, burning, dyspareunia, dysuria, flank pain, frequency, hematuria, incontinence, pain, , vagina discharge, urgency, others Neurological: reports: headache; denies: dizziness, fainting, left sided numbness, left sided weakness, numbness, paresthesia, pre-existing deficit, right sided numbness, right sided weakness, seizure, speech problems, tingling, tremors, weakness, others Musculoskeletal: denies: back pain, gout, joint pain, joint swelling, muscle pain, muscle stiffness, neck pain, others Integumetry: denies: bruises, change in color, change in hair/nails, dryness, laceration, lesions, lumps, rash, wounds, others Allergic/Immunocompromised: denies: Difficulty Healing, Frequent Infections, Hives, Itching, others Hematologic/Lymphatic: denies: anemia, blood clots, easy bleeding, easy bruising, swollen glands, others Endocrine: denies: excessive hunger, excessive sweating, excessive thirst, excessive urination, flushing, intolerance to cold, intolerance to heat, unexplained weight gain, unexplained weight loss, others Psychiatric: denies: anxiety, bipolar disorder, depression, hopeless, panic disorder, schizophrenia, sleepless, suicidal, others All Other Systems: Reviewed and Negative Physical Exam General Appearance: No Apparent Distress, Normal HEENT: Normal ENT Inspection, Pharynx Normal, TMs Normal Neck: Full Range of Motion, Non-Tender, Normal, Normal Inspection Respiratory: Chest Non-Tender, Lungs Clear, No Accessory Muscle Use, No Respiratory Distress, Normal Breath Sounds Cardiovascular: No Edema, No JVD, No Murmur, No Gallop, Normal Peripheral Pulses, Regular Rate/Rhythm Breast Exam: Deferred Gastrointestinal: No Organomegaly, Non Tender, No Pulsatile Mass, Normal Bowel Sounds, Soft Genitalia: Deferred Pelvic: Deferred Rectal: Deferred Extremities: No calf tenderness, Normal capillary refill, Normal inspection, Normal range of motion, Non-tender, No pedal edema Musculoskeletal : Apperance: Normal Neurologic: Alert, cripple chaser II-XII nml as Tested, No Motor Deficits, Normal Affect, Normal Mood, No Sensory Deficits Cerebellar Function: Normal Reflexes: Normal Skin: Dry, Normal Color, Warm Lymphatic: No Adenopathy Was a procedure done? Was a procedure done?: No Differential Dx Considerations may include: Hypertensive urgency, ACS, viral syndrome, CVA, electrolyte abnormality X-Ray, Labs, Meds, VS Vital Signs Date Time Temp Pulse Resp B/P (MAP) Pulse Ox O2 Delivery O2 Flow Rate FiO2 02/04/25 12:55 85 02/04/25 12:11 150/84 02/04/25 12:03 79 18 99 Room Air 02/04/25 12:03 99.1 79 18 150/84 (106) 99 99.1 02/04/25 11:13 85 02/04/25 11:10 98.5 86 20 183/91 (121) 99 98.5 Lab Test 02/04/25 13:00 02/04/25 11:34 02/04/25 11:20 Range/Units Troponin I High Sensitivity < 3 L < 3 L </=34 ng/L White Blood Count 5.2 4.4-10.8 10^3/uL Red Blood Count 4.66 4.0-5.20 10^6/uL Hemoglobin 12.4 12.2-16.2 g/dL Hematocrit 37.7 36.0-46.0 % Mean Corpuscular Volume 81.0 80.0-100.0 fL Mean Corpuscular Hemoglobin 26.7 L 28.0-32.0 pg Mean Corpuscular Hemoglobin Concent 32.9 32.0-36.0 g/dL Red Cell Distribution Width 14.8 H 11.8-14.3 % Platelet Count 264 140-450 10^3/uL Mean Platelet Volume 7.7 6.9-10.8 fL Neutrophils (%) (Auto) 54.1 37.0-80.0 % Lymphocytes (%) (Auto) 37.8 10.0-50.0 % Monocytes (%) (Auto) 4.9 0.0-12.0 % Eosinophils (%) (Auto) 2.7 0.0-7.0 % Basophils (%) (Auto) 0.5 0.0-2.0 % Neutrophils # (Auto) 2.8 1.6-8.6 10 ^3/uL Lymphocytes # (Auto) 2.0 0.4-5.4 10 ^3/uL Monocytes # (Auto) 0.3 0-1.3 10 ^3/uL Eosinophils # (Auto) 0.1 0-0.8 10 ^3/uL Basophils # (Auto) 0 0-0.2 10 ^3/uL Nucleated Red Blood Cells 0.1 % Sodium Level 140 136-145 mmol/L Potassium Level 3.6 3.5-5.1 mmol/L Chloride Level 106 98-107 mmol/L Carbon Dioxide Level 25 20-31 mmol/L Anion Gap 9 5-15 Blood Urea Nitrogen 5 L 9-23 mg/dL Creatinine 0.60 0.550-1.02 mg/dL Glomerular Filtration Rate Calc 109 >90 mL/min BUN/Creatinine Ratio 8.3 L 10.0-20.0 Serum Glucose 116 H 74-106 mg/dL Calcium Level 9.9 8.7-10.4 mg/dL B-Type Natriuretic Peptide 9.62 0-100 pg/mL Urine Color Light-yellow Yellow Urine Clarity Clear Clear Urine pH 6.0 5.0-9.0 Urine Specific [place] 1.017 1.001-1.035 Urine Protein Negative Negative Urine Ketones Negative Negative Urine Blood Negative Negative /uL Urine Nitrite Negative Negative Urine Bilirubin Negative Negative Urine Urobilinogen Normal Negative mg/dL Urine Leukocyte Esterase 2+ Negative /uL Urine RBC 1 0 - 4 /hpf Urine Microscopic WBC 5 0-5 /HPF Urine Squamous Epithelial Cells Few <5 /hpf Urine Bacteria None seen None Seen /hpf Urine Mucus Few None Seen Urine Glucose Normal Normal mg/dL Current Medications Medications (Trade) Dose Ordered Sig/Cezar Route Start Time Stop Time Status Last Admin Sodium Chloride 1,000 ml @ 1,000 mls/hr Q1H ONCE IV 02/04/25 11:30 02/04/25 12:29 DC 02/04/25 12:06 Acetaminophen (Tylenol Tablet) 650 mg ONCE ONCE PO 02/04/25 11:30 02/04/25 11:31 DC 02/04/25 12:05 Metoclopramide HCl (Reglan Injection) 10 mg ONCE ONCE IV 02/04/25 11:30 02/04/25 11:31 DC 02/04/25 12:05 Time of 1ST Reevaluation: 11:54 Reevaluation 1ST: Unchanged Patient Education/Counseling: Diagnosis, Treatment Family Education/Counseling: No Family Present SEPSIS Sepsis Screen Physician Orders Chest Portable (02/04/25 11:23) Electrocardigram (02/04/25 11:23) Electrocardigram (02/04/25 12:23) Electrocardigram (02/04/25 14:23) Head Without Contrast (02/04/25 11:23) Saline Lock (02/04/25 11:51) Ceftriaxone Ivpb Rocephin (02/04/25 15:00) Vital Signs Date Time Temp Pulse Resp B/P (MAP) Pulse Ox O2 Delivery O2 Flow Rate FiO2 02/04/25 12:55 85 02/04/25 12:11 150/84 02/04/25 12:03 79 18 99 Room Air 02/04/25 12:03 99.1 79 18 150/84 (106) 99 99.1 02/04/25 11:13 85 02/04/25 11:10 98.5 86 20 183/91 (121) 99 98.5 Laboratory Tests Test 02/04/25 11:34 White Blood Count 5.2 10^3/uL (4.4-10.8) Medications Medications Dose Ordered Sig/Cezar Route Start Time Stop Time Status Last Admin Dose Admin Acetaminophen 650 mg ONCE ONCE PO 02/04/25 11:30 02/04/25 11:31 DC 02/04/25 12:05 Metoclopramide HCl 10 mg ONCE ONCE IV 02/04/25 11:30 02/04/25 11:31 DC 02/04/25 12:05 Sodium Chloride 1,000 ml @ 1,000 mls/hr Q1H ONCE IV 02/04/25 11:30 02/04/25 12:29 DC 02/04/25 12:06 Departure 1 Departure Time of Disposition: 14:56 (Patient presented with hypertension and symptoms concerning for hypertensive emergency. Patient is receiving iv blood pressure medications requiring intensive monitoring. Data: 1. I ordered and reviewed the result of at least 3 labs including a CBC, BMP, and Urinalysis. 2. I independently interpreted the following tests: CT Brain: Which appears benign. EKG which is Normal Sinus RhythmRisk:This patient has a high risk of morbidity due to further diagnostic testing or treatment and may suffer from an acute cardiac disorder. Workup reveals hypertensive emergency and patient should be admitted for further workup. and possible expert consultation. ) Impression: Primary Impression: Hypertensive urgency Additional Impression: Acute chest pain Disposition: ADMITTED INPATIENT Admit to: Med Surg Condition: Serious Critical Care Note Critical Care Time?: Yes Critical care comment: Hypertensive emergency Authorized and Performed by: Sarah Styles MD Total critical care time: Approximately 42 minutes Due to a high probability of clinically significant, life threatening deterioration, the patient required my highest level of preparedness to intervene emergently and I personally spent this critical care time directly and personally managing the patient. This critical care time included obtaining a history; examining the patient; pulse oximetry; ordering and review of studies; arranging urgent treatment with development of a management plan; evaluation of patient's response to treatment; frequent reassessment; and, discussions with other providers. This critical care time was performed to assess and manage the high probability of imminent, life-threatening deterioration that could result in multi-organ failure. It was exclusive of separately billable procedures and treating other patients and teaching time. Please see my other sections and the rest of the note for further information on patient assessment and treatment. Stability Stability form required: No Heart Score Heart Score: Heart Score Response (Comments) Value History Moderate Suspicious 1 EKG Repolarization Disturb 1 Age 45-64 1 Risk Factors >3 or Hx ASHD 2 Troponin 1-2 x's Normal limit 1 Total 6 I personally scribed for SARAH STYLES MD ([email or web address]) on 02/04/25 at 11:27. Electronically submitted by Feliberto Palmer ([email or web address]). SARAH STYLES MD Feb 04, 2025 11:27
--- NOTE | 2025-02-04 12:02 | DVH ---
EXAM: XY CHEST PORTABLE Indication: chest pain Technique: Single frontal view of the chest was obtained Comparison: XY CHEST PORTABLE on DOS: 12/24/24, XY CHEST PORTABLE on DOS: 12/14/24 FINDINGS: Lines and Tubes: None Lungs: No focal consolidation. Pleura: No effusion. No pneumothorax. Cardiomediastinal contours: Unremarkable Bones: No acute osseous abnormality. IMPRESSION: No acute cardiopulmonary disease.
[2025-02-04 12:04] LABS: Hematocrit 37.7 % (36.0-46.0); Hemoglobin 12.4 g/dL (12.2-16.2); Mean Corpuscular Hemoglobin 26.7 pg (28.0-32.0); Mean Corpuscular Volume 81.0 fL (80.0-100.0); Nucleated Red Blood Cells % 0.1 %
[2025-02-04] MEDS: ACETAMINOPHEN 325 MG TAB PO ONE (12:05)
[2025-02-04] MEDS: METOCLOPRAMIDE HCL 5MG/ml INJ 2ml VIAL IV ONE (12:05)
[2025-02-04] MEDS: SODIUM CHLORIDE 0.9% 1,000 ML IV ONE (12:06)
--- NOTE | 2025-02-04 12:10 | DVH ---
CT HEAD WITHOUT CONTRAST INDICATION: htn, headache EXAM DATE: 02/04/2025 11:34 AM COMPARISON: None RADIATION DOSE: CTDIvol: 71 mGy, DLP: 1274 mGy*cm PROCEDURE: CT scans of the head were obtained from the vertex to the skull base. Sagittal and coronal reconstructions were provided. All CT scans at this medical facility are performed using dose modulation techniques as appropriate t o a performed exam including the following: Automated exposure control was utilized; adjustment of th e MA and/or KV according to patient size; and use of iterative reconstruction technique. FINDINGS: There is sulcal and ventricular prominence. The brainshows normal morphology and daniels-whi te matter differentiation, without intracranial hemorrhage, extra-axial fluid collection, mass effect or acute large vessel infarct. The ventricles are normal in size. The basal cisterns are patent. The skull and visible facial bones are intact. The paranasal sinuses, mastoid air cells and middle ear c avities are well-aerated. The soft tissues of the scalp are unremarkable. IMPRESSION: No acute intracranial abnormality.
[2025-02-04] MEDS: hydrALAZINE HCL 20 MG/ML VL IV ONE (12:11)
[2025-02-04 12:13] LABS: Chloride 106 mmol/L (98-107); Potassium 3.6 mmol/L (3.5-5.1); Sodium 140 mmol/L (136-145)
[2025-02-04 12:14] LABS: Anion Gap 9 (5-15); Calcium 9.9 mg/dL (8.7-10.4); Carbon Dioxide 25 mmol/L (20-31)
[2025-02-04 12:19] LABS: BUN/Creatinine Ratio 8.3 (10.0-20.0)
[2025-02-04 12:21] LABS: Blood Urea Nitrogen 5 mg/dL (9-23); Glucose 116 mg/dL (74-106)
[2025-02-04 13:20] LABS: Urine Protein, UAD Negative (Negative)
--- NOTE | 2025-02-04 15:24 | ECG ---
[facility] Test Date: 2025-02-04 Test Time: 15:23:08 Pat Name: LINDA CHO Department: ED Room: 0208T Gender: F Manager: SANJUANA : 1975 Requested By: SARAH STYLES Order Number: [id number] Reading MD: Josue Mckeon Measurements Intervals [place] Rate: 91 P: 14 AR: 212 QRS: 22 QRSD: 69 T: 69 QT: 394 QTc: 485 Interpretive Statements Sinus rhythm Prolonged AR interval LVH by voltage Borderline abnrm T, anterolateral leads Electronically Signed On 02-09-2025 15:47:08 PDT by Josue Mckeon Please click the below link to view image of tracing.
[2025-02-04 15:47] VITALS: PULSE 79; RESP 12; O2SAT 98
[2025-02-04] MEDS: cefTRIAXone 1GM/50ML D5W 50 ML IV ONE (15:52)
[2025-02-04] MEDS: diphenhdrAMINE HCL 50 MG/1 ML VL IV ONE (16:11)
[2025-02-04] MEDS ORDERED: ONDANSETRON HCL 4 MG/2 ML VIAL IV PRN (16:45)
[2025-02-04] MEDS ORDERED: NITROGLYCERIN 0.4 MG SL TAB SL PRN (16:45)
[2025-02-04] MEDS ORDERED: MORPHINE SULFATE INJ 2 MG/ml SYRG IV PRN (16:45)
[2025-02-04] MEDS ORDERED: HYDROcodone-ACET 5/325MG TAB PO PRN (16:45)
[2025-02-04] MEDS ORDERED: hydrALAZINE HCL 20 MG/ML VL IV PRN (16:45)
--- NOTE | 2025-02-04 17:08 | DVHHP2 ---
History of Present Illness Reason for Visit: chest pain/hypertensive crisis History of Present Illness 49-year-old female presented to the ED with chief complaint of chest pain since 0 400 today, states it felt like a piano was sitting on her chest, nonradiating pressure. Patient states she also had severe headache which she states could possibly be a migraine has she has a history. Patient was given Rocephin in the ER and had an allergic reaction with itchiness to the ears throat mouth body, patient was given Benadryl and was stable after. Patient also wants to make sure that she gets the spinal surgeon information and Cardiology information before she discharged. Troponins negative x2. head CT negative. Chest x-ray negative. Patient will be admitted to the telemetry for further treatment and management. Past Medical History hypertension, paroxysmal SVT, asthma, migraines, lumbar spinal stenosis, uterine fibroids status post hysterectomy, tobacco use and morbid obesity Past Surgical History Hysterectomy Bilateral tubal ligation Past Social History Patient has a 11.5 pack-year history, quit smoking in June of 2024 Denies any illicit drug use Denies any alcohol use Review of Systems Constitutional: No: Fever, Chills, Sweats, Weakness, Malaise, Other Eyes: No: Pain, Vision change, Conjunctivae inflammation, Eyelid inflammation, Other, Redness ENT: No: Ear pain, Ear discharge, Nose pain, Nose discharge, Nose congestion, Mouth pain, Mouth swelling, Throat pain, Throat swelling, Other Respiratory: No: Cough, Dry, Shortness of breath, SOB with excertion, Wheezing, Hemoptysis, Pleuritic Pain, Sputum, Wheezing, Other Cardiovascular: Chest Pain, Other (Headache); No: Palpitations, Orthopnea, Paroxysmal Noc. Dyspnea, Edema, Lt Headedness Gastrointestinal: No: Nausea, Vomiting, Abdominal Pain, Diarrhea, Constipation, Melena, Hematochezia, Other Genitourinary: No Dysuria, No Frequency, No Incontinence, No Hematuria, No Retention, No Other Musculoskeletal: No: other, neck pain, shoulder pain, arm pain, back pain, hand pain, leg pain, foot pain Skin: No: Rash, Lesions, Jaundice, Bruising, Other Neurological: No: Weakness, Numbness, Incoordination, Change in speech, Confusion, Seizures, Other Allergies: Coded Allergies: Aspirin (Verified Allergy, Unknown, 12/14/24) Ceftriaxone (Verified Adverse Reaction, Unknown, 02/04/25) Medications Current Medications Medications Dose Ordered Sig/Cezar Route Start Time Stop Time Status Last Admin Dose Admin Hydralazine HCl 10 mg Q6HP PRN IV 02/04/25 16:45 Acetaminophen/ Hydrocodone Bitart 1 tab Q4HP PRN PO 02/04/25 16:45 Ondansetron HCl 4 mg Q4HP PRN IV 02/04/25 16:45 Morphine Sulfate 2 mg Q4HPRN PRN IV 02/04/25 16:45 Nitroglycerin 0.4 mg Q5MINP PRN SL 02/04/25 16:45 Morphine Sulfate 2 mg Q30M PRN IV 02/04/25 16:45 Clopidogrel Bisulfate 75 mg DAILY PO 02/05/25 10:00 Diltiazem HCl 180 mg DAILY PO 02/05/25 10:00 Exam Vital Signs Vital Signs Date Time Temp Pulse Resp B/P (MAP) Pulse Ox O2 Delivery O2 Flow Rate FiO2 02/04/25 16:42 98.5 84 10 168/94 (118) 96 98.5 02/04/25 15:47 Room Air* 0 21 General Appearance: Alert, Oriented X3, Cooperative, mild distress HEENT: Atraumatic, PERRLA, EOMI, Mucous membr. moist/pink Respiratory: Clear to auscultation, Normal air movement Cardiovascular: Regular rate, Normal S1, Normal S2, No murmurs Abdominal: Normal bowel sounds, Soft, No tenderness, No hepatospenomegaly, No masses Extremities: No clubbing, No cyanosis, No edema, Normal pulses, No tenderness/swelling Skin: No rashes, No breakdown, No significant lesion Neuro: Normal gait, Normal speech, Strength at 5/5 X4 ext, Normal tone, Sensat ion intact, Cranial nerves 3-12 NL, Reflexes 2+ Psych/Mental Status: Mental status NL Labs/Xrays Reviewed with patient Labs Test 02/04/25 13:00 02/04/25 11:34 02/04/25 11:20 Range/Units Troponin I High Sensitivity < 3 L </=34 ng/L White Blood Count 5.2 4.4-10.8 10^3/uL Red Blood Count 4.66 4.0-5.20 10^6/uL Hemoglobin 12.4 12.2-16.2 g/dL Hematocrit 37.7 36.0-46.0 % Mean Corpuscular Volume 81.0 80.0-100.0 fL Mean Corpuscular Hemoglobin 26.7 L 28.0-32.0 pg Mean Corpuscular Hemoglobin Concent 32.9 32.0-36.0 g/dL Red Cell Distribution Width 14.8 H 11.8-14.3 % Platelet Count 264 140-450 10^3/uL Mean Platelet Volume 7.7 6.9-10.8 fL Neutrophils (%) (Auto) 54.1 37.0-80.0 % Lymphocytes (%) (Auto) 37.8 10.0-50.0 % Monocytes (%) (Auto) 4.9 0.0-12.0 % Eosinophils (%) (Auto) 2.7 0.0-7.0 % Basophils (%) (Auto) 0.5 0.0-2.0 % Neutrophils # (Auto) 2.8 1.6-8.6 10 ^3/uL Lymphocytes # (Auto) 2.0 0.4-5.4 10 ^3/uL Monocytes # (Auto) 0.3 0-1.3 10 ^3/uL Eosinophils # (Auto) 0.1 0-0.8 10 ^3/uL Basophils # (Auto) 0 0-0.2 10 ^3/uL Nucleated Red Blood Cells 0.1 % Sodium Level 140 136-145 mmol/L Potassium Level 3.6 3.5-5.1 mmol/L Chloride Level 106 98-107 mmol/L Carbon Dioxide Level 25 20-31 mmol/L Anion Gap 9 5-15 Blood Urea Nitrogen 5 L 9-23 mg/dL Creatinine 0.60 0.550-1.02 mg/dL Glomerular Filtration Rate Calc 109 >90 mL/min BUN/Creatinine Ratio 8.3 L 10.0-20.0 Serum Glucose 116 H 74-106 mg/dL Calcium Level 9.9 8.7-10.4 mg/dL B-Type Natriuretic Peptide 9.62 0-100 pg/mL Urine Color Light-yellow Yellow Urine Clarity Clear Clear Urine pH 6.0 5.0-9.0 Urine Specific [place] 1.017 1.001-1.035 Urine Protein Negative Negative Urine Ketones Negative Negative Urine Blood Negative Negative /uL Urine Nitrite Negative Negative Urine Bilirubin Negative Negative Urine Urobilinogen Normal Negative mg/dL Urine Leukocyte Esterase 2+ Negative /uL Urine RBC 1 0 - 4 /hpf Urine Microscopic WBC 5 0-5 /HPF Urine Squamous Epithelial Cells Few <5 /hpf Urine Bacteria None seen None Seen /hpf Urine Mucus Few None Seen Urine Glucose Normal Normal mg/dL SEPSIS Sepsis Screen Date sepsis recognized/suspect: Feb 04, 2025 Time Sepsis recognized/suspect: 1546 Recent Procedure: No On Antibiotic Therapy: No Respiratory Rate >20: No Heart Rate >90: No Temp<36 C (96.8 F) or >38.3 C: No SBP <90 or MAP <65 mmHG: No New Acute Mental Status Change: No Is the patient on CPAP, BIPAP,: No Physician Orders Chest Portable (02/04/25 11:23) Electrocardigram (02/04/25 12:23) Electrocardigram (02/04/25 14:23) Head Without Contrast (02/04/25 11:23) Saline Lock (02/04/25 11:51) Hydralazine Injection (Apresoline Inject (02/04/25 16:45) Allergies (02/04/25 16:38) Code Status (02/04/25 16:38) Hydrocodone-Acet 5/325mg Tab ([place] 5/32 (02/04/25 16:45) Ondansetron Hcl (Zofran) (02/04/25 16:45) Fall Risk Precautions In Place QSHIFT (02/04/25 16:38) Complete Blood Count (02/05/25 04:00) Comprehensive Metabolic Panel (02/05/25 04:00) Cardiac Diet-2gna,Lofat,Lochol (02/04/25 Dinner) Condition: Serious (02/04/25 16:38) Morphine Sulfate Injection (02/04/25 16:45) Nitroglycerin Sublingual (Ntrostat Subli (02/04/25 16:45) Morphine Sulfate Injection (02/04/25 16:45) Stat Ekg For Chest Pain (02/04/25 16:38) Notify Md Of Changes From Base (02/04/25 16:38) Buffer Automatic For 24 Hours (02/04/25 16:38) Emergency Dysrhythmia Protocol (02/04/25 16:38) Rhythm Strips Once Every Shift (02/04/25 16:38) Oxygen By Nasal Cannula (02/04/25 16:38) Clopidogrel Bisulfate (Plavix) (02/05/25 10:00) Diltiazem Er Capsule (Cardizem La Capsul (02/05/25 10:00) *Consult Dr. Castañeda (02/04/25 16:50) Admit (02/04/25 16:51) Vital Signs Date Time Temp Pulse Resp B/P (MAP) Pulse Ox O2 Delivery O2 Flow Rate FiO2 02/04/25 16:42 98.5 84 10 168/94 (118) 96 98.5 02/04/25 15:47 98.7 79 12 179/76 (110) 98 98.7 02/04/25 15:47 79 12 98 Room Air* 0 21 02/04/25 15:23 91 02/04/25 12:55 85 02/04/25 12:11 150/84 02/04/25 12:03 79 18 99 Room Air 02/04/25 12:03 99.1 79 18 150/84 (106) 99 99.1 02/04/25 11:13 85 02/04/25 11:10 98.5 86 20 183/91 (121) 99 98.5 Laboratory Tests Test 02/04/25 11:34 White Blood Count 5.2 10^3/uL (4.4-10.8) Medications Medications Dose Ordered Sig/Cezar Route Start Time Stop Time Status Last Admin Dose Admin Acetaminophen 650 mg ONCE ONCE PO 02/04/25 11:30 02/04/25 11:31 DC 02/04/25 12:05 650 MG Ceftriaxone Sodium 50 ml @ 100 mls/hr ONCE ONCE IV 02/04/25 15:00 02/04/25 15:29 DC 02/04/25 15:52 100 MLS/HR Diphenhydramine HCl 50 mg ONCE ONCE IV 02/04/25 16:15 02/04/25 16:16 DC 02/04/25 16:11 50 MG Metoclopramide HCl 10 mg ONCE ONCE IV 02/04/25 11:30 02/04/25 11:31 DC 02/04/25 12:05 10 MG Sodium Chloride 1,000 ml @ 1,000 mls/hr Q1H ONCE IV 02/04/25 11:30 02/04/25 12:29 DC 02/04/25 12:06 1,000 MLS/HR Assessment/Plan Assessment/Plan Hypertensive crisis/ chest pain w/hx CAD Admit to telemetry Hydralazine p.r.n. Restarted patient's home medications Consult cardiology-Dr. 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 Chronic spinal lumbar stenosis Pain medications p.r.n. GI/VTE prophylaxis-new prophylaxis not indicated/no history of GI bleed Lovenox Plan discussed with: Patient My Orders Orders - TEVIN DICKERSON SPIRITUAL CARE COORDINATOR Procedure Category Date Status Time Hydralazine Injection PHA 02/04/25 In Process (Apresoline Inject 16:45 Allergies PEYTON 02/04/25 In Process 16:38 Code Status CODE 02/04/25 Transmitted 16:38 Hydrocodone-Acet PHA 02/04/25 In Process 5/325mg Tab ([place] 16:45 Ondansetron Hcl PHA 02/04/25 In Process (Zofran) 16:45 Fall Risk Precautions PEYTON 02/04/[address] 16:38 Complete Blood Count LAB 02/05/25 Verified 04:00 Comprehensive LAB 02/05/25 Verified Metabolic Panel 04:00 Cardiac DIET 02/04/25 Transmitted Diet-2gna,Lofat,Lochol Dinner Condition: Serious PEYTON 02/04/25 In Process 16:38 Morphine Sulfate PHA 02/04/25 In Process Injection 16:45 Nitroglycerin PHA 02/04/25 In Process Sublingual (Ntrostat 16:45 Morphine Sulfate PHA 02/04/25 In Process Injection 16:45 Stat Ekg For Chest PEYTON 02/04/25 In Process Pain 16:38 Notify Of Changes PEYTON 02/04/25 In Process From Base 16:38 Buffer Automatic For PEYTON 02/04/25 In Process 24 Hours 16:38 Emergency Dysrhythmia PEYTON 02/04/25 In Process Protocol 16:38 Rhythm Strips Once PEYTON 02/04/25 In Process Every Shift 16:38 Oxygen By Nasal RT 02/04/25 Transmitted Cannula 16:38 Clopidogrel Bisulfate PHA 02/05/25 In Process (Plavix) 10:00 Diltiazem Er Capsule PHA 02/05/25 In Process (Cardizem La Capsul 10:00 *Consult Dr. Castañeda CONS 02/04/25 Transmitted 16:50 Admit ADMIT 02/04/25 Transmitted 16:51 Date of Service: Feb 04, 2025 Billing Provider: TEVIN DICKERSON Common Visit Codes: [id number] INP/OBS CARE (HIGH) TEVIN DICKERSON Feb 04, 2025 17:08
[2025-02-04] MEDS: ONDANSETRON HCL 4 MG/2 ML VIAL IV ONE (17:16)
[2025-02-04] MEDS: MORPHINE SULFATE 4 MG/ML SYR/VIAL IV ONE (17:18)
--- NOTE | 2025-02-04 19:32 | ECG ---
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
[2025-02-05] VITALS (12 sets, daily range): BP systolic 100–158; BP diastolic 62–99; PULSE 69–81; RESP 16–18; TEMP 97.6–98.4; O2SAT 91–100
[2025-02-05] MEDS: MORPHINE SULFATE INJ 2 MG/ml SYRG IV PRN (01:07)
[2025-02-05 05:43] LABS: Hematocrit 35.9 % (36.0-46.0); Hemoglobin 11.8 g/dL (12.2-16.2); Mean Corpuscular Hemoglobin 26.7 pg (28.0-32.0); Mean Corpuscular Volume 81.6 fL (80.0-100.0); Nucleated Red Blood Cells % 0.1 %
[2025-02-05 06:18] LABS: Alanine Aminotransferase 13 U/L (7-40); Albumin 4.1 g/dL (3.2-4.8); Alkaline Phosphatase 77 U/L (46-116); Anion Gap 9 (5-15); BUN/Creatinine Ratio 10.1 (10.0-20.0); Bilirubin, Total 0.7 mg/dL (0.2-1.0); Calcium 9.7 mg/dL (8.7-10.4); Carbon Dioxide 26 mmol/L (20-31); Total Protein 7.3 g/dL (5.7-8.2)
[2025-02-05 06:33] LABS: Blood Urea Nitrogen 7 mg/dL (9-23); Chloride 106 mmol/L (98-107); Glucose 113 mg/dL (74-106); Potassium 3.8 mmol/L (3.5-5.1); Sodium 141 mmol/L (136-145)
[2025-02-05] MEDS: CLOPIDOGREL BISULFATE 75 MG TAB PO SCH (09:23)
--- NOTE | 2025-02-05 13:38 | DVHPN2 ---
Subjective The patient is seen and examined at bedside. Still complain of chest pain and severe back pain. Reviewed: Care Plan, H&P, Labs, Medications, Previous Orders, Radiology Changes from previous H/P or p: No Changes Eyes: No Pain, No Vision change, No Conjunctivae inflammation, No Eyelid inflammation, No Other, No Redness ENT: No Ear pain, No Ear discharge, No Nose pain, No Nose discharge, No Nose congestion, No Mouth pain, No Mouth swelling, No Throat pain, No Throat swelling, No Other Cardiovascular: Chest Pain; No Palpitations, No Orthopnea, No Paroxysmal Noc. Dyspnea, No Edema, No Lt Headedness; Other (Headache) Respiratory: No Cough, No Dry, No Shortness of breath, No SOB with excertion, No Wheezing, No Hemoptysis, No Pleuritic Pain, No Sputum, No Other Gastrointestinal: No Nausea, No Vomiting, No Abdominal Pain, No Diarrhea, No Constipation, No Melena, No Hematochezia, No Other Genitourinary: No Dysuria, No Frequency, No Incontinence, No Hematuria, No Retention, No Other Musculoskeletal: No other, No neck pain, No shoulder pain, No arm pain, No back pain, No hand pain, No leg pain, No foot pain Skin: No Rash, No Lesions, No Jaundice, No Bruising, No Other Objective Vitals Vital Signs Date Time Temp Pulse Resp B/P (MAP) Pulse Ox O2 Delivery O2 Flow Rate FiO2 02/05/25 12:47 69 16 126/87 02/05/25 08:37 98.0 100 98.0 02/05/25 06:10 Nasal Cannula* 2 28 Intake/Output Intake and Output 02/05/25 07:00 Intake Total 1480 ml Balance 1480 ml Intake Oral 480 ml IV Total 1000 ml General Appearance: Alert, Cooperative, mild distress HEENT: Atraumatic, PERRLA, EOMI, Mucous membr. moist/pink Neck: Supple Lungs: Clear to auscultation, Normal air movement Cardiovascular: Regular rate, Normal S1, Normal S2, No murmurs, Gallops, Rubs Abdomen: Normal bowel sounds, Soft, No tenderness Neuro: Cranial nerves 3-12 NL Psych/Mental Status: Mental status NL Medications Current Medications Medications Dose Ordered Sig/Cezar Route Start Time Stop Time Status Last Admin Dose Admin Hydralazine HCl 10 mg Q6HP PRN IV 02/04/25 16:45 Acetaminophen/ Hydrocodone Bitart 1 tab Q4HP PRN PO 02/04/25 16:45 Ondansetron HCl 4 mg Q4HP PRN IV 02/04/25 16:45 Morphine Sulfate 2 mg Q4HPRN PRN IV 02/04/25 16:45 02/05/25 12:47 2 MG Nitroglycerin 0.4 mg Q5MINP PRN SL 02/04/25 16:45 Morphine Sulfate 2 mg Q30M PRN IV 02/04/25 16:45 Clopidogrel Bisulfate 75 mg DAILY PO 02/05/25 10:00 02/05/25 09:23 75 MG Diltiazem HCl 180 mg DAILY PO 02/05/25 10:00 02/05/25 09:24 180 MG Laboratory Results Laboratory Tests 02/05/25 05:17 Chemistry Test 02/05/25 05:17 Albumin 4.1 g/dL (3.2-4.8) Calcium Level 9.7 mg/dL (8.7-10.4) Total Protein 7.3 g/dL (5.7-8.2) LFT Test 02/05/25 05:17 Alanine Aminotransferase (ALT) 13 U/L (7-40) Alkaline Phosphatase 77 U/L (46-116) Aspartate Amino Transferase (AST) 13 U/L (13-40) Total Bilirubin 0.7 mg/dL (0.2-1.0) Urinalysis Test 02/04/25 11:20 Urine Color Light-yellow (Yellow) Urine Clarity Clear (Clear) Urine pH 6.0 (5.0-9.0) Urine Specific [place] 1.017 (1.001-1.035) Urine Protein Negative (Negative) Urine Ketones Negative (Negative) Urine Blood Negative /uL (Negative) Urine Nitrite Negative (Negative) Urine Bilirubin Negative (Negative) Urine Urobilinogen Normal mg/dL (Negative) Urine Leukocyte Esterase 2+ /uL (Negative) Urine RBC 1 /hpf (0 - 4) Urine Microscopic WBC 5 /HPF (0-5) Urine Squamous Epithelial Cells Few /hpf (<5) Urine Bacteria None seen /hpf (None Seen) Urine Mucus Few (None Seen) Urine Glucose Normal mg/dL (Normal) Labs and/or images reviewed: Labs reviewed by me Assessment/Plan Assessment/Plan Hypertensive crisis/ chest pain w/hx CAD Chronic spinal lumbar stenosis Back pain due to spinal stenosis Morbid obesity Continuing current management. Continuing with IV hydralazine. Continuing with home hypertensive medication. Appreciate Cardiology input. Waiting for cardiac catheterization. Pain medication p.r.n. for spinal stenosis and back pain Outpatient follow up with spine surgeon This medical document was created using an electronic medical record system with [employer] direct computerized dictation system. Although this document has been carefully reviewed, there may still be some phonetic and typographical errors. These areas are purely typographical due to imperfections of the software programs, and do not reflect any compromise in the patient's medical care. Plan discussed with: Patient Date of Service: Feb 05, 2025 Billing Provider: MEL KRUSE MD Common Visit Codes: [id number] INP/OBS CARE(HIGH) MEL KRUSE MD Feb 05, 2025 13:38
--- NOTE | 2025-02-05 15:32 | DVHINCON2 ---
Date Seen: Feb 05, 2025 Referring Physician RAJESH Mary Reason for Consultation Chest pain History of Present Illness This is a 49-year-old female who presented to the emergency room with a chief complaint of chest pain. Describes her chest pain as substernal, constant, non provoked, pressure-like, and associated with mild SOB, nausea, and a headache. She presented with an associated systolic blood pressure up to the 180s mmHg. She had a recent admission to this facility where she underwent Cardiolite stress test revealing anterior wall ischemia. At that time, she was highly suspected for breast artifact and deemed to be at high-risk for CV complications given morbid obesity. She underwent multiple 12 lead electrocardiogram revealing a normal sinus rhythm. Serial troponin levels are negative. Significant past medical history includes hypertension, paroxysmal SVT, asthma, migraines, lumbar spinal stenosis, uterine fibroids status post hysterectomy, tobacco use, and morbid obesity. Past Medical History Past medical history reviewed. No other significant than mentioned above. Past Surgical History Hysterectomy Bilateral tubal ligation Family History: Asthma G8 MOTHER Diabetes mellitus G8 MOTHER Hypertension G8 MOTHER G8 FATHER Family History Family history reviewed. Social History Patient has a 11.5 pack-year history, quit smoking in June of 2024. Denies any illicit drug use or any alcohol use. Allergies: Coded Allergies: Aspirin (Verified Allergy, Unknown, 12/14/24) Ceftriaxone (Verified Adverse Reaction, Unknown, 02/04/25) Home Meds Active Scripts Oxycodone W/ Acetaminophen (Percocet 5/325MG) 1 Tab Tb, 1 TAB PO BID, #10 TAB Prov:HALLEY ORTIZ MD 12/31/24 Atorvastatin Calcium (ATORVASTATIN CALCIUM) 40 Mg Tab, 1 TAB PO DAILY, #30 TAB 5 Refills Prov:HALLEY ORTIZ MD 12/31/24 Diltiazem HCl (Diltiazem Hydrochloride E) 180 Mg Cap, 180 MG PO DAILY for 30 Days, #30 CAP Prov:HALLEY ORTIZ MD 12/31/24 Clopidogrel Bisulfate (CLOPIDOGREL) 75 Mg Tab, 75 MG PO DAILY for 30 Days, #30 TAB Prov:HALLEY ORTIZ MD 12/31/24 Methocarbamol (Methocarbamol) 500 Mg Tab, 500 MG PO QID for 30 Days, #120 TAB Prov:VANNA BALLARD 12/16/24 Acetaminophen (Acetaminophen) 325 Mg Tab, 325 MG PO Q4HPRN PRN for 30 Days, #150 TAB Prov:VANNA BALLARD RESIDENT 12/16/24 Gabapentin (Gabapentin) 100 Mg Cap, 1 CAP PO TID for 90 Days, #90 CAP 2 Refills Prov:CHELSIE DORAN MD 12/16/24 Home Meds Home medications reviewed. Current Medications Current Medications Medications (Trade) Dose Ordered Sig/Cezar Route PRN Reason Start Time Stop Time Status Last Admin Hydralazine HCl (Apresoline Injection) 10 mg Q6HP PRN IV SBP>150 02/04/25 16:45 Acetaminophen/ Hydrocodone Bitart ([place] 5/325MG Tab) 1 tab Q4HP PRN PO MODERATE PAIN (4-6 PAIN SCALE) 02/04/25 16:45 Ondansetron HCl (Zofran) 4 mg Q4HP PRN IV NAUSEA / VOMITING 02/04/25 16:45 Morphine Sulfate 2 mg Q4HPRN PRN IV SEVERE PAIN (7-10 PAIN SCALE) 02/04/25 16:45 02/05/25 12:47 Nitroglycerin (Ntrostat Sublingual) 0.4 mg Q5MINP PRN SL FOR CHEST PAIN 02/04/25 16:45 Morphine Sulfate 2 mg Q30M PRN IV FOR CHEST PAIN 02/04/25 16:45 Clopidogrel Bisulfate (Plavix) 75 mg DAILY PO 02/05/25 10:00 02/05/25 09:23 Diltiazem HCl (Cardizem LA Capsule) 180 mg DAILY PO 02/05/25 10:00 02/05/25 09:24 Review of Systems Constitutional: No symptom reported Ears, Nose, & Throat: No symptom reported Eyes: No symptom reported Neurological: No symptoms reported Pulmonary/Respiratory: No symptom reported Cardiovascular: chest pain Gastrointestinal: No symptom reported Genitourinary: No symptom reported Musculoskeletal: No symptom reported Skin: No symptom reported Psychiatric: No symptom reported Endocrine: No symptom reported Hemotologic/Lymphatic: No symptom reported Vital Signs Vital Signs Date Time Temp Pulse Resp B/P (MAP) Pulse Ox O2 Delivery O2 Flow Rate FiO2 02/05/25 13:21 72 16 158/96 02/05/25 13:00 98.4 100 98.4 02/05/25 08:00 Nasal Cannula* 2 28 Physical Exam General Appearance: Cooperative. Morbidly obese. In no acute distress Head Exam: Normal inspection Neck Exam: Normal inspection. Non-tender. Normal alignment Pulmonary/Respiratory: Chest non-tender. Clear bilateral breath sounds Cardiovascular/Chest: Regular rate and rhythm. S1, S2. NSR. No murmurs. No JVD. Peripheral Pulses: 2+ Radial (R). 2+ Radial (L). 2+ Pedal (R). 2+ Pedal (L) Abdominal Exam: Normal bowel sounds. Soft. Ankle Exam: Negative ankle edema Lower extremities: Negative lower extremity edema Neuro/Mental Status: A&O x4. Coherent Thoughts/Psych: Normal thought pattern. Appropriate mood and affect. Good judgement and insight Appearance: In no acute distress Skin Exam: Normal inspection. Normal color. Warm. Dry Labs/Diagnostic Data Labs Test 02/05/25 05:17 02/04/25 13:00 02/04/25 11:34 02/04/25 11:20 Range/Units White Blood Count 4.8 4.4-10.8 10^3/uL Red Blood Count 4.41 4.0-5.20 10^6/uL Hemoglobin 11.8 L 12.2-16.2 g/dL Hematocrit 35.9 L 36.0-46.0 % Mean Corpuscular Volume 81.6 80.0-100.0 fL Mean Corpuscular Hemoglobin 26.7 L 28.0-32.0 pg Mean Corpuscular Hemoglobin Concent 32.7 32.0-36.0 g/dL Red Cell Distribution Width 14.6 H 11.8-14.3 % Platelet Count 240 140-450 10^3/uL Mean Platelet Volume 7.6 6.9-10.8 fL Neutrophils (%) (Auto) 43.8 37.0-80.0 % Lymphocytes (%) (Auto) 46.9 10.0-50.0 % Monocytes (%) (Auto) 5.2 0.0-12.0 % Eosinophils (%) (Auto) 3.8 0.0-7.0 % Basophils (%) (Auto) 0.3 0.0-2.0 % Neutrophils # (Auto) 2.1 1.6-8.6 10 ^3/uL Lymphocytes # (Auto) 2.2 0.4-5.4 10 ^3/uL Monocytes # (Auto) 0.2 0-1.3 10 ^3/uL Eosinophils # (Auto) 0.2 0-0.8 10 ^3/uL Basophils # (Auto) 0 0-0.2 10 ^3/uL Nucleated Red Blood Cells 0.1 % Sodium Level 141 136-145 mmol/L Potassium Level 3.8 3.5-5.1 mmol/L Chloride Level 106 98-107 mmol/L Carbon Dioxide Level 26 20-31 mmol/L Anion Gap 9 5-15 Blood Urea Nitrogen 7 L 9-23 mg/dL Creatinine 0.69 0.550-1.02 mg/dL Glomerular Filtration Rate Calc 105 >90 mL/min BUN/Creatinine Ratio 10.1 10.0-20.0 Serum Glucose 113 H 74-106 mg/dL Calcium Level 9.7 8.7-10.4 mg/dL Total Bilirubin 0.7 0.2-1.0 mg/dL Aspartate Amino Transferase (AST) 13 13-40 U/L Alanine Aminotransferase (ALT) 13 7-40 U/L Alkaline Phosphatase 77 46-116 U/L Total Protein 7.3 5.7-8.2 g/dL Albumin 4.1 3.2-4.8 g/dL Troponin I High Sensitivity < 3 L </=34 ng/L B-Type Natriuretic Peptide 9.62 0-100 pg/mL Urine Color Light-yellow Yellow Urine Clarity Clear Clear Urine pH 6.0 5.0-9.0 Urine Specific [place] 1.017 1.001-1.035 Urine Protein Negative Negative Urine Ketones Negative Negative Urine Blood Negative Negative /uL Urine Nitrite Negative Negative Urine Bilirubin Negative Negative Urine Urobilinogen Normal Negative mg/dL Urine Leukocyte Esterase 2+ Negative /uL Urine RBC 1 0 - 4 /hpf Urine Microscopic WBC 5 0-5 /HPF Urine Squamous Epithelial Cells Few <5 /hpf Urine Bacteria None seen None Seen /hpf Urine Mucus Few None Seen Urine Glucose Normal Normal mg/dL Assessment Chest pain rule out coronary artery disease Hypertensive urgency, resolved History of paroxysmal SVT Morbid obesity History of tobacco use Plan/Recommendation (Dr. Torres) Patient seen and evaluated by Dr. Torres. Given ischemic Cardiolite stress test on previous admission, the patient has been scheduled for a cardiac catheterization and coronary angiogram at first available. All risks and benefits of the procedure were discussed with the patient who agrees to proceed with intervention. All questions answered. In the meantime, continue aggressive blood pressure control. Monitor ECG changes and notify. Continue chest pain protocol. Thank you for allowing us to participate in this patient's care. Please call if you have any questions or concerns. This medical document was created using an electronic medical record system with voice recognition software and computerized dictation system. Although this document has been carefully reviewed, there might still be some phonetic and typographical errors. Occasional wrong-word or ``sound-alike substitutions may have occurred due to the inherent limitations of voice recognition software. These areas are purely typographical due to imperfections of the software agustina jurado and do not reflect any compromise in the patient's medical care. Please read the chart carefully and recognize, using context, where these substitutions have occurred. Plan discussed with: Patient, Other NYHA Physical activity limitations: NA Date of Service: Feb 05, 2025 Billing Provider: VINCENZO NIETO Cardiology Common Codes: [id number] INP/OBS CARE (High) VINCENZO NIETO Feb 05, 2025 15:32
[2025-02-05] MEDS: CHLORTHALIDONE 25 MG TAB PO ONE (18:59)
--- NOTE | 2025-02-05 23:42 | DVHINCON2 ---
Date Seen: Feb 05, 2025 Referring Physician RAJESH Mary Reason for Consultation Chest pain History of Present Illness This is a 49-year-old female with a past past medical history of hypertension, paroxysmal SVT, asthma, migraines, lumbar spinal stenosis, uterine fibroids status post hysterectomy, tobacco use, and morbid obesity who presented to the ED with a complaint of chest pain. Patient describes her chest pain as sub sternal, constant, non provoked, pressure-like, and reports associated symptoms of mild SOB, nausea, and a headache. She presented with an associated systolic blood pressure up to the 180s mmHg. She had a recent admission to [facility] where she underwent Cardiolite stress test revealing anterior wall ischemia. At that time, she was highly suspected for breast artifact and deemed to be at high-risk for CV complications given morbid obesity. She underwent multiple 12 lead electrocardiogram revealing a normal sinus rhythm. Serial troponin levels are negative. Chest x-ray showed NAD. Patient was admitted to the hospital. I am asked to consult on this patient. Past Medical History Past medical history reviewed. No other significant than mentioned above. Past Surgical History Hysterectomy Bilateral tubal ligation Family History: Asthma G8 MOTHER Diabetes mellitus G8 MOTHER Hypertension G8 MOTHER G8 FATHER Allergies: Coded Allergies: Aspirin (Verified Allergy, Unknown, 12/14/24) Ceftriaxone (Verified Adverse Reaction, Unknown, 02/04/25) Home Meds Active Scripts Oxycodone W/ Acetaminophen (Percocet 5/325MG) 1 Tab Tb, 1 TAB PO BID, #10 TAB Prov:HALLEY ORTIZ MD 12/31/24 Atorvastatin Calcium (ATORVASTATIN CALCIUM) 40 Mg Tab, 1 TAB PO DAILY, #30 TAB 5 Refills Prov:HALLEY ORTIZ MD 12/31/24 Diltiazem HCl (Diltiazem Hydrochloride E) 180 Mg Cap, 180 MG PO DAILY for 30 Days, #30 CAP Prov:HALLEY ORTIZ MD 12/31/24 Clopidogrel Bisulfate (CLOPIDOGREL) 75 Mg Tab, 75 MG PO DAILY for 30 Days, #30 TAB Prov:HALLEY ORTIZ MD 12/31/24 Methocarbamol (Methocarbamol) 500 Mg Tab, 500 MG PO QID for 30 Days, #120 TAB Prov:VANNA BALLARD 12/16/24 Acetaminophen (Acetaminophen) 325 Mg Tab, 325 MG PO Q4HPRN PRN for 30 Days, #150 TAB Prov:VANNA BALLARD RESIDENT 12/16/24 Gabapentin (Gabapentin) 100 Mg Cap, 1 CAP PO TID for 90 Days, #90 CAP 2 Refills Prov:CEHLSIE DORAN MD 12/16/24 Current Medications Current Medications Medications (Trade) Dose Ordered Sig/Cezar Route PRN Reason Start Time Stop Time Status Last Admin Hydralazine HCl (Apresoline Injection) 10 mg Q6HP PRN IV SBP>150 02/04/25 16:45 Acetaminophen/ Hydrocodone Bitart ([place] 5/325MG Tab) 1 tab Q4HP PRN PO MODERATE PAIN (4-6 PAIN SCALE) 02/04/25 16:45 Ondansetron HCl (Zofran) 4 mg Q4HP PRN IV NAUSEA / VOMITING 02/04/25 16:45 Morphine Sulfate 2 mg Q4HPRN PRN IV SEVERE PAIN (7-10 PAIN SCALE) 02/04/25 16:45 02/05/25 12:47 Nitroglycerin (Ntrostat Sublingual) 0.4 mg Q5MINP PRN SL FOR CHEST PAIN 02/04/25 16:45 Morphine Sulfate 2 mg Q30M PRN IV FOR CHEST PAIN 02/04/25 16:45 Clopidogrel Bisulfate (Plavix) 75 mg DAILY PO 02/05/25 10:00 02/05/25 09:23 Diltiazem HCl (Cardizem LA Capsule) 180 mg DAILY PO 02/05/25 10:00 02/05/25 09:24 Chlorthalidone (Chlorthalidone) 25 mg DAILY@BREAKFAST PO 02/06/25 08:00 Review of Systems Constitutional: No symptom reported Ears, Nose, & Throat: No symptom reported Eyes: No symptom reported Neurological: No symptoms reported Pulmonary/Respiratory: No symptom reported Cardiovascular: chest pain Gastrointestinal: No symptom reported Genitourinary: No symptom reported Musculoskeletal: No symptom reported Skin: No symptom reported Psychiatric: No symptom reported Endocrine: No symptom reported Hemotologic/Lymphatic: No symptom reported Vital Signs Vital Signs Date Time Temp Pulse Resp B/P (MAP) Pulse Ox O2 Delivery O2 Flow Rate FiO2 02/05/25 13:21 72 16 158/96 02/05/25 13:00 98.4 100 98.4 02/05/25 08:00 Nasal Cannula* 2 28 Physical Exam GENERAL: Alert and oriented x 3. No acute distress.Morbidly obese. EYES: PERRL, EOMI. Anicteric. HENT: Moist mucous membranes. LUNGS: Clear to auscultation bilaterally. CARDIOVASCULAR: Regular rate and rhythm. ABDOMEN: Soft, nontender and nondistended. EXTREMITIES: No edema. NEUROLOGIC: No focal neurological deficits. SKIN: Warm, dry. Labs/Diagnostic Data Labs Test 02/05/25 05:17 02/04/25 13:00 02/04/25 11:34 02/04/25 11:20 Range/Units White Blood Count 4.8 4.4-10.8 10^3/uL Red Blood Count 4.41 4.0-5.20 10^6/uL Hemoglobin 11.8 L 12.2-16.2 g/dL Hematocrit 35.9 L 36.0-46.0 % Mean Corpuscular Volume 81.6 80.0-100.0 fL Mean Corpuscular Hemoglobin 26.7 L 28.0-32.0 pg Mean Corpuscular Hemoglobin Concent 32.7 32.0-36.0 g/dL Red Cell Distribution Width 14.6 H 11.8-14.3 % Platelet Count 240 140-450 10^3/uL Mean Platelet Volume 7.6 6.9-10.8 fL Neutrophils (%) (Auto) 43.8 37.0-80.0 % Lymphocytes (%) (Auto) 46.9 10.0-50.0 % Monocytes (%) (Auto) 5.2 0.0-12.0 % Eosinophils (%) (Auto) 3.8 0.0-7.0 % Basophils (%) (Auto) 0.3 0.0-2.0 % Neutrophils # (Auto) 2.1 1.6-8.6 10 ^3/uL Lymphocytes # (Auto) 2.2 0.4-5.4 10 ^3/uL Monocytes # (Auto) 0.2 0-1.3 10 ^3/uL Eosinophils # (Auto) 0.2 0-0.8 10 ^3/uL Basophils # (Auto) 0 0-0.2 10 ^3/uL Nucleated Red Blood Cells 0.1 % Sodium Level 141 136-145 mmol/L Potassium Level 3.8 3.5-5.1 mmol/L Chloride Level 106 98-107 mmol/L Carbon Dioxide Level 26 20-31 mmol/L Anion Gap 9 5-15 Blood Urea Nitrogen 7 L 9-23 mg/dL Creatinine 0.69 0.550-1.02 mg/dL Glomerular Filtration Rate Calc 105 >90 mL/min BUN/Creatinine Ratio 10.1 10.0-20.0 Serum Glucose 113 H 74-106 mg/dL Calcium Level 9.7 8.7-10.4 mg/dL Total Bilirubin 0.7 0.2-1.0 mg/dL Aspartate Amino Transferase (AST) 13 13-40 U/L Alanine Aminotransferase (ALT) 13 7-40 U/L Alkaline Phosphatase 77 46-116 U/L Total Protein 7.3 5.7-8.2 g/dL Albumin 4.1 3.2-4.8 g/dL Troponin I High Sensitivity < 3 L </=34 ng/L B-Type Natriuretic Peptide 9.62 0-100 pg/mL Urine Color Light-yellow Yellow Urine Clarity Clear Clear Urine pH 6.0 5.0-9.0 Urine Specific [place] 1.017 1.001-1.035 Urine Protein Negative Negative Urine Ketones Negative Negative Urine Blood Negative Negative /uL Urine Nitrite Negative Negative Urine Bilirubin Negative Negative Urine Urobilinogen Normal Negative mg/dL Urine Leukocyte Esterase 2+ Negative /uL Urine RBC 1 0 - 4 /hpf Urine Microscopic WBC 5 0-5 /HPF Urine Squamous Epithelial Cells Few <5 /hpf Urine Bacteria None seen None Seen /hpf Urine Mucus Few None Seen Urine Glucose Normal Normal mg/dL Assessment Chest pain rule out coronary artery disease. Hypertensive urgency, resolved. History of paroxysmal SVT. Morbid obesity. History of tobacco use. Plan/Recommendation I agree with your ongoing assessment and care of plan. Patient has been seen by Tamiko Flynn NP on my behalf, her and I discussed the plan with the patient. Patient was seen and evaluated by me. Given ischemic Cardiolite stress test on previous admission, the patient has been scheduled for a cardiac catheterization and coronary angiogram at first available. All risks and benefits of the procedure were discussed with the patient who agrees to proceed with intervention. All questions answered. In the meantime, continue aggressive blood pressure control. Monitor ECG changes and notify. Continue chest pain protocol. Additional plan as per the hospital course. Plan discussed with: Patient NYHA Physical activity limitations: NA Date of Service: Feb 05, 2025 Billing Provider: VALERIE CANALES MD Cardiology Common Codes: [id number] INP/OBS CARE (High) Cardiology Consultation Codes: [id number] CONSULT <80MIN VALERIE CANALES MD Feb 05, 2025 15:53
[2025-02-06] VITALS (8 sets, daily range): BP systolic 124–152; BP diastolic 71–92; PULSE 59–83; RESP 17–20; TEMP 97–98.7; O2SAT 99–100
[2025-02-06] MEDS: CHLORTHALIDONE 25 MG TAB PO SCH (08:51)
--- NOTE | 2025-02-06 11:41 | DVHPN2 ---
Consult Progress Note Date Seen: Feb 06, 2025 Subjective Review of Systems: CVS:Abnormal, RESPIRATORY:Normal, NEURO:Normal Other Systems: C/o chest pain, beeter than yesterday Objective vital signs Vital Sign Date Time Temp Pulse Resp B/P (MAP) Pulse Ox O2 Delivery O2 Flow Rate FiO2 02/06/25 09:34 77 18 128/88 02/06/25 08:43 97.9 100 97.9 02/06/25 08:00 Nasal Cannula* 2 28 Total Intake and Output 02/05/25 02/05/25 02/06/25 15:00 23:00 07:00 Intake Total 1200 ml 1200 ml Balance 1200 ml 1200 ml medications Current Medications Medications Dose Ordered Sig/Cezar Route Start Time Stop Time Status Last Admin Dose Admin Hydralazine HCl 10 mg Q6HP PRN IV 02/04/25 16:45 Acetaminophen/ Hydrocodone Bitart 1 tab Q4HP PRN PO 02/04/25 16:45 Ondansetron HCl 4 mg Q4HP PRN IV 02/04/25 16:45 Morphine Sulfate 2 mg Q4HPRN PRN IV 02/04/25 16:45 02/06/25 09:34 2 MG Nitroglycerin 0.4 mg Q5MINP PRN SL 02/04/25 16:45 Morphine Sulfate 2 mg Q30M PRN IV 02/04/25 16:45 Clopidogrel Bisulfate 75 mg DAILY PO 02/05/25 10:00 02/06/25 09:33 75 MG Diltiazem HCl 180 mg DAILY PO 02/05/25 10:00 02/06/25 09:33 180 MG Chlorthalidone 25 mg DAILY@BREAKFAST PO 02/06/25 08:00 02/06/25 08:51 25 MG Examination: LUNGS:Normal, CVS:Normal, NEURO:Normal laboratory and microbiology Laboratory Tests 02/05/25 05:17 Test 02/05/25 05:17 Range/Units Serum Glucose 113 H 74-106 mg/dL Problem List/Assessment/Plan Problem List/Assessment/Plan Chest pain rule out coronary artery disease Hypertensive urgency, resolved History of paroxysmal SVT Morbid obesity History of tobacco use Plan/Recommendation (Dr. Torres) Patient seen and evaluated by Dr. Torres. Given ischemic Cardiolite stress test on previous admission, the patient has been scheduled for a cardiac catheterization and coronary angiogram at first available. In the meantime, continue aggressive blood pressure control with chlorthalidone. Continue Cardizem given history of SVT. Continue single-antiplatelet therapy. Monitor ECG changes and notify. Continue chest pain protocol. Thank you for allowing us to participate in this patient's care. Please call if you have any questions or concerns. This medical document was created using an electronic medical record system with voice recognition software and computerized dictation system. Although this document has been carefully reviewed, there might still be some phonetic and typographical errors. Occasional wrong-word or ``sound-alike substitutions may have occurred due to the inherent limitations of voice recognition software. These areas are purely typographical due to imperfections of the software programs and do not reflect any compromise in the patient's medical care. Please read the chart carefully and recognize, using context, where these substitutions have occurred. Plan discussed with: Patient, Other Date of Service: Feb 06, 2025 Billing Provider: VINCENZO NIETO Cardiology Common Codes: [id number] HOSP CARE(High VINCENZO NIETO Feb 06, 2025 11:41
--- NOTE | 2025-02-06 14:53 | DVHPN2 ---
Subjective The patient is seen and examined at bedside. Patient does have some chest discomfort today and also complained of back pain Reviewed: Care Plan, H&P, Labs, Medications, Previous Orders, Radiology Changes from previous H/P or p: No Changes Eyes: No Pain, No Vision change, No Conjunctivae inflammation, No Eyelid inflammation, No Other, No Redness ENT: No Ear pain, No Ear discharge, No Nose pain, No Nose discharge, No Nose congestion, No Mouth pain, No Mouth swelling, No Throat pain, No Throat swelling, No Other Cardiovascular: Chest Pain; No Palpitations, No Orthopnea, No Paroxysmal Noc. Dyspnea, No Edema, No Lt Headedness; Other (Headache) Respiratory: No Cough, No Dry, No Shortness of breath, No SOB with excertion, No Wheezing, No Hemoptysis, No Pleuritic Pain, No Sputum, No Other Gastrointestinal: No Nausea, No Vomiting, No Abdominal Pain, No Diarrhea, No Constipation, No Melena, No Hematochezia, No Other Genitourinary: No Dysuria, No Frequency, No Incontinence, No Hematuria, No Retention, No Other Musculoskeletal: No other, No neck pain, No shoulder pain, No arm pain, No back pain, No hand pain, No leg pain, No foot pain Skin: No Rash, No Lesions, No Jaundice, No Bruising, No Other Objective Vitals Vital Signs Date Time Temp Pulse Resp B/P (MAP) Pulse Ox O2 Delivery O2 Flow Rate FiO2 02/06/25 14:17 67 20 140/90 02/06/25 12:46 98.7 100 98.7 02/06/25 08:00 Nasal Cannula* 2 28 Intake/Output Intake and Output 02/06/25 07:00 Intake Total 2400 ml Balance 2400 ml Intake Oral 2400 ml # Voids 11 # Bowel Movements 5 General Appearance: Alert, Oriented X3, Cooperative, mild distress HEENT: Atraumatic, PERRLA, EOMI, Mucous membr. moist/pink Neck: Supple Lungs: Clear to auscultation, Normal air movement Cardiovascular: Regular rate, Normal S1, Normal S2, No murmurs, Gallops, Rubs Abdomen: Normal bowel sounds, Soft, No tenderness Neuro: Cranial nerves 3-12 NL Psych/Mental Status: Mental status NL Medications Current Medications Medications Dose Ordered Sig/Cezar Route Start Time Stop Time Status Last Admin Dose Admin Hydralazine HCl 10 mg Q6HP PRN IV 02/04/25 16:45 Acetaminophen/ Hydrocodone Bitart 1 tab Q4HP PRN PO 02/04/25 16:45 Ondansetron HCl 4 mg Q4HP PRN IV 02/04/25 16:45 Morphine Sulfate 2 mg Q4HPRN PRN IV 02/04/25 16:45 02/06/25 14:17 2 MG Nitroglycerin 0.4 mg Q5MINP PRN SL 02/04/25 16:45 Morphine Sulfate 2 mg Q30M PRN IV 02/04/25 16:45 Clopidogrel Bisulfate 75 mg DAILY PO 02/05/25 10:00 02/06/25 09:33 75 MG Diltiazem HCl 180 mg DAILY PO 02/05/25 10:00 02/06/25 09:33 180 MG Chlorthalidone 25 mg DAILY@BREAKFAST PO 02/06/25 08:00 02/06/25 08:51 25 MG Laboratory Results Laboratory Tests 02/05/25 05:17 Urinalysis Test 02/04/25 11:20 Urine Color Light-yellow (Yellow) Urine Clarity Clear (Clear) Urine pH 6.0 (5.0-9.0) Urine Specific [place] 1.017 (1.001-1.035) Urine Protein Negative (Negative) Urine Ketones Negative (Negative) Urine Blood Negative /uL (Negative) Urine Nitrite Negative (Negative) Urine Bilirubin Negative (Negative) Urine Urobilinogen Normal mg/dL (Negative) Urine Leukocyte Esterase 2+ /uL (Negative) Urine RBC 1 /hpf (0 - 4) Urine Microscopic WBC 5 /HPF (0-5) Urine Squamous Epithelial Cells Few /hpf (<5) Urine Bacteria None seen /hpf (None Seen) Urine Mucus Few (None Seen) Urine Glucose Normal mg/dL (Normal) Labs and/or images reviewed: Labs reviewed by me Assessment/Plan Assessment/Plan Hypertensive crisis/ chest pain w/hx CAD Chronic spinal lumbar stenosis Back pain due to spinal stenosis Morbid obesity Continuing current management. Continuing with IV hydralazine. Continuing with home hypertensive medication. Appreciate Cardiology input. Waiting for cardiac catheterization. Pain medication p.r.n. for spinal stenosis and back pain Outpatient follow up with spine surgeon This medical document was created using an electronic medical record system with M*M flurency direct computerized dictation system. Although this document has been carefully reviewed, there may still be some phonetic and typographical errors. These areas are purely typographical due to imperfections of the software programs, and do not reflect any compromise in the patient's medical care. Plan discussed with: Patient, Other (Mother) Date of Service: Feb 06, 2025 Billing Provider: MEL KRUSE MD Common Visit Codes: [id number] INP/OBS CARE(HIGH) MEL KRUSE MD Feb 06, 2025 14:53
[2025-02-06] MEDS: KETOROLAC TROMETH 30 MG/ML 1ML VIAL IV PRN (18:58)
[2025-02-06] MEDS: MORPHINE SULFATE INJ 2 MG/ml SYRG IV PRN (21:28)
--- NOTE | 2025-02-06 23:02 | DVHPN2 ---
Consult Progress Note Date Seen: Feb 06, 2025 Subjective Review of Systems: CVS:Abnormal, RESPIRATORY:Normal, NEURO:Normal Other Systems: Patient was seen and evaluated in follow up. Patient is on 2 LPM NC. Patient reports feeling better than yesterday. Patient complains of chest pain. Telemetry reviewed. Objective vital signs Vital Sign Date Time Temp Pulse Resp B/P (MAP) Pulse Ox O2 Delivery O2 Flow Rate FiO2 02/06/25 12:46 98.7 59 20 142/90 (107) 100 98.7 02/06/25 08:00 Nasal Cannula* 2 28 Total Intake and Output 02/05/25 02/05/25 02/06/25 15:00 23:00 07:00 Intake Total 1200 ml 1200 ml Balance 1200 ml 1200 ml medications Current Medications Medications Dose Ordered Sig/Cezar Route Start Time Stop Time Status Last Admin Dose Admin Hydralazine HCl 10 mg Q6HP PRN IV 02/04/25 16:45 Acetaminophen/ Hydrocodone Bitart 1 tab Q4HP PRN PO 02/04/25 16:45 Ondansetron HCl 4 mg Q4HP PRN IV 02/04/25 16:45 Morphine Sulfate 2 mg Q4HPRN PRN IV 02/04/25 16:45 02/06/25 09:34 2 MG Nitroglycerin 0.4 mg Q5MINP PRN SL 02/04/25 16:45 Morphine Sulfate 2 mg Q30M PRN IV 02/04/25 16:45 Clopidogrel Bisulfate 75 mg DAILY PO 02/05/25 10:00 02/06/25 09:33 75 MG Diltiazem HCl 180 mg DAILY PO 02/05/25 10:00 02/06/25 09:33 180 MG Chlorthalidone 25 mg DAILY@BREAKFAST PO 02/06/25 08:00 02/06/25 08:51 25 MG Examination: LUNGS:Normal, CVS:Normal, NEURO:Normal laboratory and microbiology Laboratory Tests 02/05/25 05:17 Test 02/05/25 05:17 Range/Units Serum Glucose 113 H 74-106 mg/dL Problem List/Assessment/Plan Problem List/Assessment/Plan Problem list Chest pain rule out coronary artery disease. Hypertensive urgency, resolved. History of paroxysmal SVT. Morbid obesity. History of tobacco use. Plan/Recommendation Continued all current supportive medical care. Patient has been seen by Tamiko Flynn NP on my behalf, her and I discussed the plan with the patient. Patient was seen and evaluated by me. Given ischemic Cardiolite stress test on previous admission, the patient has been scheduled for a cardiac catheterization and coronary angiogram at first available. In the meantime, continue aggressive blood pressure control with chlorthalidone. Continue Cardizem given history of SVT. Continue single-antiplatelet therapy. Monitor ECG changes and notify. Continue chest pain protocol. Additional plan as per the hospital course. Plan discussed with: Patient Date of Service: Feb 06, 2025 Billing Provider: VALERIE CANALES MD Cardiology Common Codes: [id number] [facility] VALERIE CANALES MD Feb 06, 2025 13:20
[2025-02-07] VITALS (10 sets, daily range): BP systolic 130–165; BP diastolic 83–106; PULSE 66–80; RESP 9–18; TEMP 97.8–98.5; O2SAT 97–100
[2025-02-07 06:49] LABS: Chloride 100 mmol/L (98-107); Potassium 3.5 mmol/L (3.5-5.1); Sodium 141 mmol/L (136-145)
[2025-02-07 06:50] LABS: Anion Gap 7 (5-15); Calcium 10.4 mg/dL (8.7-10.4)
[2025-02-07 06:52] LABS: Hematocrit 38.9 % (36.0-46.0); Hemoglobin 12.6 g/dL (12.2-16.2); INR 0.97 (0.9-1.15); Mean Corpuscular Hemoglobin 26.6 pg (28.0-32.0); Mean Corpuscular Volume 81.8 fL (80.0-100.0); Nucleated Red Blood Cells % 0.1 %; Partial Thromboplastin Time 29.2 SEC (24.5-34.5); Prothrombin Time 10.3 sec (9.3-11.8)
[2025-02-07 06:55] LABS: BUN/Creatinine Ratio 18.1 (10.0-20.0); Blood Urea Nitrogen 13 mg/dL (9-23); Glucose 104 mg/dL (74-106); Triglycerides 96 mg/dL (< 150)
[2025-02-07 06:57] LABS: Carbon Dioxide 34 mmol/L (20-31); Cholesterol 133 mg/dL (< 200); HDL Cholesterol 50 mg/dL (40-59)
--- NOTE | 2025-02-07 07:29 | ECG ---
[facility] Test Date: 2025-02-07 Test Time: 05:00:25 Pat Name: LINDA CHO Department: Room: 0208T A Gender: F Framing Specialist: MOISES : 1975 Requested By: VINCENZO NIETO Order Number: [id number] Reading MD: Josue Mckeon Measurements Intervals [place] Rate: 70 P: 53 AK: 224 QRS: 37 QRSD: 92 T: 25 QT: 415 QTc: 448 Interpretive Statements Sinus rhythm Prolonged [place] interval Probable left atrial enlargement Electronically Signed On 02-07-2025 21:34:58 PDT by Josue Mckeon Please click the below link to view image of tracing.
[2025-02-07] MEDS: IODIXANOL 320MG/ML 100ML BTL IV ONE (08:33)
[2025-02-07] MEDS: HEPARIN SODIUM (PORCINE) 5000 UNITS/ML 1ML VIAL ONE (09:02)
[2025-02-07] MEDS: ANGIOMAX 250 MG VIAL IV ONE (09:02)
[2025-02-07] MEDS: SODIUM CHL 0.9% 50 ML ONE (09:03)
[2025-02-07] MEDS: fentaNYL CITRATE 100 MCG/2 ML VL ONE (09:03)
[2025-02-07] MEDS: MIDAZOLAM HCL 2MG/2ML 2ml VIAL (1mg/ml) ONE (09:03)
[2025-02-07] MEDS: VERAPAMIL 2.5MG/ML INJ 2ML VIAL IV ONE (09:03)
[2025-02-07] MEDS: LIDOCAINE 2%HCL (LOCAL ANESTH.) INJ 20ML MDV ONE (09:22)
--- NOTE | 2025-02-07 09:42 | DVHPN2 ---
Progress Note Date Seen: Feb 07, 2025 Medical Necessity Reason Pt with a Central, PICC or Fol: No Subjective Patient reports: Feels better Objective vital signs Vital Sign Date Time Temp Pulse Resp B/P (MAP) Pulse Ox O2 Delivery O2 Flow Rate FiO2 02/07/25 09:00 98.3 74 18 130/90 (103) 100 98.3 02/07/25 07:30 Nasal Cannula* 2 28 Total Intake and Output 02/06/25 02/06/25 02/07/25 15:00 23:00 07:00 Intake Total 540 ml 450 ml Output Total 6 ml Balance 540 ml 444 ml medications Current Medications Medications Dose Ordered Sig/Cezar Route Start Time Stop Time Status Last Admin Dose Admin Hydralazine HCl 10 mg Q6HP PRN IV 02/04/25 16:45 Acetaminophen/ Hydrocodone Bitart 1 tab Q4HP PRN PO 02/04/25 16:45 Ondansetron HCl 4 mg Q4HP PRN IV 02/04/25 16:45 Nitroglycerin 0.4 mg Q5MINP PRN SL 02/04/25 16:45 Morphine Sulfate 2 mg Q30M PRN IV 02/04/25 16:45 Clopidogrel Bisulfate 75 mg DAILY PO 02/05/25 10:00 02/06/25 09:33 75 MG Diltiazem HCl 180 mg DAILY PO 02/05/25 10:00 02/06/25 09:33 180 MG Chlorthalidone 25 mg DAILY@BREAKFAST PO 02/06/25 08:00 02/06/25 08:51 25 MG Ketorolac Tromethamine 30 mg Q8HPRN PRN IV 02/06/25 17:05 02/11/25 17:04 02/06/25 18:58 30 MG Morphine Sulfate 2 mg Q4HPRN PRN IV 02/06/25 19:00 02/07/25 03:46 2 MG Examination: GENERAL:Abnormal, HEENT:Abnormal, LUNGS:Abnormal, CVS:Abnormal, ABDOMEN:Normal laboratory and microbiology Laboratory Tests 02/07/25 05:16 Test 02/07/25 05:16 Range/Units Serum Glucose 104 74-106 mg/dL Problem List/Assessment/Plan Problem List/Assessment/Plan acs obesity htn hl copd hypoxia sp LHC, no severe cad mild elevated LVEDP cont diastolic HF tx, prn diuretics supplemental o2 asa allergy noted Plan discussed with: Patient My Orders My Orders Orders - MARLEN ART MD Procedure Category Date Status Time Cl Left Heart Cath CL 02/07/25 Taken 08:31 Date of Service: Feb 07, 2025 Billing Provider: MARLEN ART MD Common Visit Codes: NOT BILLABLE MARLEN ART MD Feb 07, 2025 09:42
--- NOTE | 2025-02-07 09:44 | DVHOP2 ---
Operative Report Operative Report CARDIAC TIE LOADER PROCEDURE REPORT [place], [place] Date of Service: 02/07/25 Supervisor Home Energy Consultant: Marlen Art MD PROCEDURES PERFORMED: Coronary angiogram, left heart catheterization, conscious sedation administration and supervision, less than 15 minutes; fluoroscopy use and interpretation. Ultrasound guided vascular access saved to pacs system PREOPERATIVE DIAGNOSES: Abnormal stress test with CCS class 3 angina, POSTOP DIAGNOSIS: HTN, diastolic HF DESCRIPTION OF PROCEDURE: The patient or appropriate family signed informed consent understanding the risks, benefits and alternatives of the procedure, they wished to proceed. The patient was brought to the cardiac labor economics professor in n.p.o[place] state. The patient was prepped in a sterile fashion. Sedation was used per cardiac cath protocol. I administered 2 mL of 2% lidocaine to the right wrist. With an antegrade front wall puncture using US guidance saved to pacs system I noted a patent Right radial artery. . I cannulated the right radial artery and placed a 6-[place] slender. Next, an intra-arterial spasmolytic was administered. Next, a - 5 [place] catheter a and were used for coronary angiogram and LVEDP measurement and pressure pullback. At the completion of procedure, all guides and wires were removed, and there were no immediate complications. FINDINGS: RCA: Moderate vessel off the right sinus of Valsalva, there is no severe flow limiting stenosis. LEFT MAIN: Moderate size left main, it bifurcates into LAD and circumflex. no stenosis CIRCUMFLEX: Moderate caliber vessel coming off the left main with no flow limiting stenosis. LAD: LAD is a moderate caliber vessel coming of the left main. no stenosis LVEDP of 16-20 mmhg CONCLUSIONS: 1. NO severe cad noted 2. diastolic HF and elevated LVEDP PLAN: Aggressive risk factor modification and medical management for the patient. MARLEN ART MD Feb 07, 2025 09:44
[2025-02-07 10:13] LABS: Hepatitis B Surface Antigen Negative (Negative)
[2025-02-07 10:31] LABS: Hepatitis C Antibody Negative (Negative)
--- NOTE | 2025-02-07 12:23 | DVHDS2 ---
Discharge Summary Date of Admission Feb 04, 2025 at 16:38 Date of Discharge: Feb 07, 2025 Admitting Diagnosis Hypertensive crisis/ chest pain w/hx CAD Chronic spinal lumbar stenosis Back pain due to spinal stenosis Morbid obesity Labs/Diagnostic Data: Laboratory Results Test 02/07/25 05:16 02/05/25 05:17 02/04/25 13:00 02/04/25 11:34 White Blood Count 4.9 10^3/uL (4.4-10.8) Red Blood Count 4.76 10^6/uL (4.0-5.20) Hemoglobin 12.6 g/dL (12.2-16.2) Hematocrit 38.9 % (36.0-46.0) Mean Corpuscular Volume 81.8 fL (80.0-100.0) Mean Corpuscular Hemoglobin 26.6 pg (28.0-32.0) Mean Corpuscular Hemoglobin Concent 32.5 g/dL (32.0-36.0) Red Cell Distribution Width 14.5 % (11.8-14.3) Platelet Count 265 10^3/uL (140-450) Mean Platelet Volume 7.8 fL (6.9-10.8) Neutrophils (%) (Auto) 50.1 % (37.0-80.0) Lymphocytes (%) (Auto) 39.2 % (10.0-50.0) Monocytes (%) (Auto) 5.9 % (0.0-12.0) Eosinophils (%) (Auto) 4.4 % (0.0-7.0) Basophils (%) (Auto) 0.4 % (0.0-2.0) Neutrophils # (Auto) 2.5 10 ^3/uL (1.6-8.6) Lymphocytes # (Auto) 1.9 10 ^3/uL (0.4-5.4) Monocytes # (Auto) 0.3 10 ^3/uL (0-1.3) Eosinophils # (Auto) 0.2 10 ^3/uL (0-0.8) Basophils # (Auto) 0 10 ^3/uL (0-0.2) Nucleated Red Blood Cells 0.1 % Prothrombin Time 10.3 sec (9.3-11.8) Prothrombin Time INR 0.97 (0.9-1.15) Activated Partial Thromboplast Time 29.2 SEC (24.5-34.5) Sodium Level 141 mmol/L (136-145) Potassium Level 3.5 mmol/L (3.5-5.1) Chloride Level 100 mmol/L (98-107) Carbon Dioxide Level 34 mmol/L (20-31) Anion Gap 7 (5-15) Blood Urea Nitrogen 13 mg/dL (9-23) Creatinine 0.72 mg/dL (0.550-1.02) Glomerular Filtration Rate Calc 101 mL/min (>90) BUN/Creatinine Ratio 18.1 (10.0-20.0) Serum Glucose 104 mg/dL (74-106) Calcium Level 10.4 mg/dL (8.7-10.4) Triglycerides Level 96 mg/dL (< 150) Cholesterol Level 133 mg/dL (< 200) LDL Cholesterol 63 mg/dL (< 100) HDL Cholesterol 50 mg/dL (40-59) Total Bilirubin 0.7 mg/dL (0.2-1.0) Aspartate Amino Transferase (AST) 13 U/L (13-40) Alanine Aminotransferase (ALT) 13 U/L (7-40) Alkaline Phosphatase 77 U/L (46-116) Total Protein 7.3 g/dL (5.7-8.2) Albumin 4.1 g/dL (3.2-4.8) Hepatitis B Surface Antigen Negative (Negative) Hepatitis C Antibody Negative (Negative) Troponin I High Sensitivity < 3 ng/L (</=34) B-Type Natriuretic Peptide 9.62 pg/mL (0-100) Test 02/04/25 11:20 Urine Color Light-yellow (Yellow) Urine Clarity Clear (Clear) Urine pH 6.0 (5.0-9.0) Urine Specific [place] 1.017 (1.001-1.035) Urine Protein Negative (Negative) Urine Ketones Negative (Negative) Urine Blood Negative /uL (Negative) Urine Nitrite Negative (Negative) Urine Bilirubin Negative (Negative) Urine Urobilinogen Normal mg/dL (Negative) Urine Leukocyte Esterase 2+ /uL (Negative) Urine RBC 1 /hpf (0 - 4) Urine Microscopic WBC 5 /HPF (0-5) Urine Squamous Epithelial Cells Few /hpf (<5) Urine Bacteria None seen /hpf (None Seen) Urine Mucus Few (None Seen) Urine Glucose Normal mg/dL (Normal) Other Laboratory Tests 02/07/25 05:16 Brief Hx & Hospital Course: This is a 49 years old female with past medical history hypertension, morbid obesity, severe chronic back pain come to emergency department because of chest pain with heaviness. Patient stated that she feels like a piano was sitting on her chest. Her chest pain is nonradiating associated with headache. The patient apparently was given Rocephin emergency department and had an allergic reaction to itchiness of her ear, throat, mouth and body. Patient was given Benadryl and feel better after that. The patient was admitted. Workup was done. Troponin level three set is negative. EKG showed no change. Subsequently the patient had a cardiac catheterization today. The cardiac catheterization showed clean vessel and no blockage. No further stent placement. The patient also had diastolic congestive heart failure based on cardiac catheterization. The patient also complained of severe back pain and required pain medication in the hospital. Per patient last admission she was evaluated by a spine surgeon however forget his name and lost his card. The patient apparently seen Dr. Nava. Per spine surgeon service the patient needs to follow up with them as outpatient for further management of her back pain. Today the rail washer's cleared the patient for discharge after the cardiac catheterization. I will discharge her home today. Advised her to follow up with primary care physician 1-2 weeks. Follow up with spine surgeon per schedule. Activity as tolerated. Diet per home diet. Recommend low-salt low- cholesterol diet. Physical exam: HEENT: Normocephalic atraumatic pupils equal react to light and accommodation. Extraocular muscles intact, conjunctiva pink, oropharynx moist, no thrush, no exudate. Lymphatic: No lymphadenopathy Cardiovascular exam: S1, S2 was heard. No murmurs, rubs, gallops Lung: Clear on auscultation bilaterally, no wheeze, rale, rhonchi. GI: Abdominal soft, nondistended, nontenderness, positive bowel sounds. Extremity: No crepitus, cyanosis, edema. Pedal pulses present bilateral. Full range of motion. Skin: Normal turgor, no rash. Psych: Alert, oriented x3. Neurology: No focal deficits, cranial nerve II to XII grossly intact. This medical document was created using an electronic medical record system with [employer]) direct computerized dictation system. Although this document has been carefully reviewed, there may still be some phonetic and typographical errors. These areas are purely typographical due to imperfections of the software programs, and do not reflect any compromise in the patient's medical care. Condition at Discharge: Stable Final Diagnosis/Problems List Hypertensive crisis/ chest pain w/hx CAD Chronic spinal lumbar stenosis Back pain due to spinal stenosis Morbid obesity Discharge Disposition: Home Discharge Instruct/Medications Scheduled Atorvastatin Calcium (Atorvastatin Calcium), 1 TAB PO DAILY Clopidogrel Bisulfate (Clopidogrel), 75 MG PO DAILY Diltiazem HCl (Diltiazem Hydrochloride E), 180 MG PO DAILY Gabapentin (Gabapentin), 1 CAP PO TID Methocarbamol (Methocarbamol), 500 MG PO QID Oxycodone W/ Acetaminophen (Percocet 5/325MG), 1 TAB PO BID Scheduled PRN Acetaminophen (Acetaminophen), 325 MG PO Q4HPRN PRN Discharge Statement: "Patient was advised to return to the ER or call 911 if any headaches, dizziness, shortness of breath, chest pain, abdominal pain, bleeding, fevers, or worsening of medical condition. Patient was counseled about treatment plan, medications, possible side effects, patientverbalized understanding. All questions were answered to the best of my ability. This discharge took greater then 30 minutes in planning, reviewing documentation, counseling the patient, and discussing with other team members." ASSESSMENT ASSESSMENT Assessment Date of Service: Feb 07, 2025 Billing Provider: MEL KRUSE MD Common Visit Codes: 49389-HQT/OBS DISCH DAY >30min MEL KRUSE MD Feb 07, 2025 12:23
[2025-02-07] MEDS ORDERED: PERCOT PO (12:25)
--- NOTE | 2025-02-08 00:02 | DVHPN2 ---
Progress Note - Dictate Date Seen: Feb 08, 2025 Medical Necessity Reason Pt with a Central, PICC or Fol: No Subjective Patient was seen and evaluated in follow up. Patient is on 2 LPM NC. Patient is s/p LHC. There is no severe CAD. Mild elevated LVEDP. Patient is cardiac stable for discharge. Telemetry reviewed. vital signs Vital Sign Date Time Temp Pulse Resp B/P (MAP) Pulse Ox O2 Delivery O2 Flow Rate FiO2 02/07/25 13:45 77 02/07/25 12:45 98.3 18 130/83 (99) 100 98.3 02/07/25 07:30 Nasal Cannula* 2 28 Total Intake and Output 02/06/25 02/06/25 02/07/25 15:00 23:00 07:00 Intake Total 540 ml 450 ml Output Total 6 ml Balance 540 ml 444 ml objective GENERAL: Alert and oriented x 3. No acute distress. EYES: PERRL, EOMI. Anicteric. HENT: Moist mucous membranes. LUNGS: Clear to auscultation bilaterally. CARDIOVASCULAR: Regular rate and rhythm. ABDOMEN: Soft, non-tender and non-distended. EXTREMITIES: No edema. NEUROLOGIC: No focal neurological deficits. SKIN: Warm, dry. laboratory and microbiology Laboratory Tests 02/07/25 05:16 Test 02/07/25 05:16 Range/Units Serum Glucose 104 74-106 mg/dL Problem List Chest pain rule out coronary artery disease. Hypertensive urgency, resolved. History of paroxysmal SVT. Morbid obesity. History of tobacco use. Assessment/Plan Continued all current supportive medical care. Morphine and [place] for pain. Plavix. Cardizem. Nitro SL. Additional plan as per the hospital course. Plan discussed with: Patient VALERIE CANALES MD Feb 08, 2025 00:02
--- NOTE | 2025-02-09 07:48 | ECG ---
[facility] Test Date: 2025-02-04 Test Time: 11:13:00 Pat Name: LINDA CHO Department: ER Room: 0208T A Gender: F Channel Lip Wetter: RADHA : 1975 Requested By: SARAH STYLES Order Number: [id number] Reading MD: Josue Mckeon Measurements Intervals [place] Rate: 85 P: 56 ND: 213 QRS: 36 QRSD: 90 T: 3 QT: 380 QTc: 452 Interpretive Statements Sinus rhythm Prolonged ND interval Borderline T abnormalities, anterior leads Electronically Signed On 02-09-2025 15:46:47 PDT by Josue Mckeon Please click the below link to view image of tracing.
== END 2025-02-07 15:20 | disposition home or self-care (01) | DRG 192 ==
LOC: ER 11:03 → OVERFLOW 16:38 → TELE-CENTR 23:53
PROVIDERS: ADMIT Internal Medicine; ATTEND Internal Medicine
PROC: 4A023N7 Measurement of Cardiac Sampling and Pressure, Left Heart, Percutaneous Approach (ICD-10-PCS; principal; 2025-02-07)
PROC: B211YZZ Fluoroscopy of Multiple Coronary Arteries using Other Contrast (ICD-10-PCS; 2025-02-07)
DX: I11.0 Hypertensive heart disease with heart failure (principal); Z68.43 Body mass index [BMI] 50.0-59.9, adult; I16.0 Hypertensive urgency; I50.33 Acute on chronic diastolic (congestive) heart failure; E66.01 Morbid (severe) obesity due to excess calories; T36.1X5A Adverse effect of cephalosporins and other beta-lactam antibiotics, initial encounter; M48.061 Spinal stenosis, lumbar region without neurogenic claudication; J45.909 Unspecified asthma, uncomplicated; G89.29 Other chronic pain; G43.909 Migraine, unspecified, not intractable, without status migrainosus; Z88.6 Allergy status to analgesic agent; Z79.899 Other long term (current) drug therapy; Z98.891 History of uterine scar from previous surgery; Z90.710 Acquired absence of both cervix and uterus; Z87.891 Personal history of nicotine dependence; Z98.51 Tubal ligation status; Z83.3 Family history of diabetes mellitus; Z82.5 Family history of asthma and other chronic lower respiratory diseases; Z82.49 Family history of ischemic heart disease and other diseases of the circulatory system; Y92.89 Other specified places as the place of occurrence of the external cause
CPT/HCPCS: 36415; 70450; 71045; 80048; 80053; 80061; 81001; 83880; 84484; 85025; 85610; 85730; 86803; 86850; 86900; 86901; 87340; 93005; 93458; 96365; 96375; 99152; 99291; G0378; J1885; J2250; J2405; Q9967

== ENCOUNTER 2025-04-28 19:10 | Emergency (ER) | payer MEDICAID ==
[~2025-04-28] VITALS: Ht 170.2 cm; Wt 147.0 kg
[~2025-04-28 19:10] MED LIST changes: -CARI-579 PO; -HYDR25TA5 PO; -LOSA-534 PO
[2025-04-28] MEDS: ACETAMINOPHEN 325 MG TAB PO ONE (19:59)
[2025-04-28] MEDS: ONDANSETRON ODT 4 MG TAB PO ONE (19:59)
[2025-04-28 20:17] LABS: Chloride 103 mmol/L (98-107); Potassium 3.6 mmol/L (3.5-5.1); Sodium 140 mmol/L (136-145)
[2025-04-28 20:18] LABS: Anion Gap 10 (5-15); Calcium 9.0 mg/dL (8.7-10.4); Carbon Dioxide 27 mmol/L (20-31)
[2025-04-28 20:23] LABS: BUN/Creatinine Ratio 7.8 (10.0-20.0); Blood Urea Nitrogen 7 mg/dL (9-23); Glucose 109 mg/dL (74-106); Hemoglobin 12.3 g/dL (12.2-16.2); Nucleated Red Blood Cells % 0.1 %
[2025-04-28 20:24] LABS: Hematocrit 37.6 % (36.0-46.0); Mean Corpuscular Hemoglobin 26.6 pg (28.0-32.0); Mean Corpuscular Volume 81.2 fL (80.0-100.0)
--- NOTE | 2025-04-28 20:25 | ED.PDOC ---
HPI Comments This patient is a severely morbidly obese 49 year old female presenting to the ED with chief complaint of chest pain. Patient reports that she has been experiencing left sided chest pain with associated headache and generalized weakness for the past few days. Patient relays having cardiac disease history, but unsure of her exact diagnoses along taking multiple medications she is unsure of the name of. Patient denies any SOB, N/V, dizziness, fever, chills, abdominal pain, or syncope. Patient was febrile at arrival. Chief Complaint: Chest Pain Time Seen by MD: 20:26 Primary Care Provider: JEANNIE Reviewed Notes: Nurses Notes, Medications, Allergies Allergies: Coded Allergies: Aspirin (Verified Allergy, Unknown, 12/14/24) Ceftriaxone (Verified Adverse Reaction, Unknown, 02/04/25) Home Meds Active Scripts Oxycodone W/ Acetaminophen (Percocet 5/325MG) 1 Tab Tb, 1 TAB PO BID, #20 TAB Prov:MEL KRUSE MD 02/07/25 Atorvastatin Calcium (ATORVASTATIN CALCIUM) 40 Mg Tab, 1 TAB PO DAILY, #30 TAB 5 Refills Prov:HALLEY ORTIZ MD 12/31/24 Diltiazem HCl (Diltiazem Hydrochloride E) 180 Mg Cap, 180 MG PO DAILY for 30 Days, #30 CAP Prov:HALLEY ORTIZ MD 12/31/24 Clopidogrel Bisulfate (CLOPIDOGREL) 75 Mg Tab, 75 MG PO DAILY for 30 Days, #30 TAB Prov:HALLEY ORTIZ MD 12/31/24 Methocarbamol (Methocarbamol) 500 Mg Tab, 500 MG PO QID for 30 Days, #120 TAB Prov:VANNA BALLARD 12/16/24 Acetaminophen (Acetaminophen) 325 Mg Tab, 325 MG PO Q4HPRN PRN for 30 Days, #150 TAB Prov:VANNA BALLARD 12/16/24 Gabapentin (Gabapentin) 100 Mg Cap, 1 CAP PO TID for 90 Days, #90 CAP 2 Refills Prov:CHELSIE DORAN MD 12/16/24 Information Source: Patient Mode of Arrival: Ambulatory Severity: Moderate Timing: Hours Duration: Since onset Prehospital treatment: None Location: Chest (L) Radiation: No Radiation Quality: Sharp Onset: At Rest Cardiac Risk Factors: HTN PE Risk Factors: None History of: Similar pain in past Associated Signs and Symptoms: SOB Past Medical History PAST MEDICAL HISTORY: Arthritis, Asthma, HTN, Liver, HI Surgical History: , Hysterectomy 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 EDITOR History Family History Family History: Reviewed,noncontributory to illness, Family hx of heart arin Social History Smoker: Quit Less Than 1 Year Alcohol: Denies ETOH Use Drugs: Denies Drug Use Lives In: Home Constitutional: reports: fatigue, fever, weakness; denies: chills, diaphoresis, malaise, sweats, others EENTM: denies: blurred vision, double vision, ear bleeding, ear discharge, ear drainage, ear pain, ear ringing, eye pain, eye redness, hearing loss, mouth pain, mouth swelling, nasal discharge, nose bleeding, nose congestion, nose pain, photophobia, tearing, throat pain, throat swelling, voice changes, others Respiratory: reports: shortness of breath; denies: cough, hemoptysis, orthopnea, SOB at rest, SOB with excertion, stridor, wheezing, others Cardiovascular: reports: chest pain; denies: dizzy spells, diaphoresis, Dyspnea on exertion, edema, irregular heart beat, left arm pain, lightheadedness, palpitations, PND, syncope, others Gastrointestinal: denies: abdomen distended, abdominal pain, blood streaked bowels, constipated, diarrhea, dysphagia, difficulty swallowing, hematemesis, melena, nausea, poor appetite, poor fluid intake, rectal bleeding, rectal pain, vomiting, others Genitourinary: denies: abnormal vagina bleeding, burning, dyspareunia, dysuria, flank pain, frequency, hematuria, incontinence, pain, , vagina discharge, urgency, others Neurological: reports: headache; denies: dizziness, fainting, left sided numbness, left sided weakness, numbness, paresthesia, pre-existing deficit, right sided numbness, right sided weakness, seizure, speech problems, tingling, tremors, weakness, others Musculoskeletal: denies: back pain, gout, joint pain, joint swelling, muscle pain, muscle stiffness, neck pain, others Integumetry: denies: bruises, change in color, change in hair/nails, dryness, laceration, lesions, lumps, rash, wounds, others Allergic/Immunocompromised: denies: Difficulty Healing, Frequent Infections, Hives, Itching, others Hematologic/Lymphatic: denies: anemia, blood clots, easy bleeding, easy bruising, swollen glands, others Endocrine: denies: excessive hunger, excessive sweating, excessive thirst, excessive urination, flushing, intolerance to cold, intolerance to heat, unexplained weight gain, unexplained weight loss, others Psychiatric: denies: anxiety, bipolar disorder, depression, hopeless, panic disorder, schizophrenia, sleepless, suicidal, others All Other Systems: Reviewed and Negative Physical Exam General Appearance: Moderate Distress (Patient was in moderate distress at time of evaluation. Patient looks moderately toxic.), Obese HEENT: Normal ENT Inspection, Pharynx Normal, TMs Normal Neck: Full Range of Motion, Non-Tender, Normal, Normal Inspection Respiratory: Chest Non-Tender, Lungs Clear, No Accessory Muscle Use, No Respiratory Distress, Normal Breath Sounds, Other (Unremarkable auscultation bilateral lung sutton.) Cardiovascular: No Edema, No JVD, No Murmur, No Gallop, Normal Peripheral Pulses, Regular Rate/Rhythm, Other (Unremarkable cardiac evaluation.) Breast Exam: Deferred Gastrointestinal: No Organomegaly, Non Tender, No Pulsatile Mass, Normal Bowel Sounds, Soft Genitalia: Deferred Pelvic: Deferred Rectal: Deferred Extremities: No calf tenderness, Normal capillary refill, Normal range of motion, No pedal edema Musculoskeletal : Apperance: Normal Neurologic: Alert Cerebellar Function: NOT DONE Reflexes: NOT DONE Skin: Dry, Normal Color, Warm Lymphatic: No Adenopathy Was a procedure done? Was a procedure done?: No CP Differential Dx Differential Diagnosis: A-fib, A-Flutter, Anxiety / Panic Attack, AV Block 1st Degree, HI, Other (Viral illness, UTI) Differential Diagnosis: CHF Differential Diagnosis: Angina, Costochondritis X-Ray, Labs, Meds, VS Vital Signs Date Time Temp Pulse Resp B/P (MAP) Pulse Ox O2 Delivery O2 Flow Rate FiO2 04/28/25 23:17 98.9 89 16 119/71 (87) 98 98.9 04/28/25 22:37 98.9 04/28/25 22:00 100.7 106 16 129/67 (87) 96 100.7 04/28/25 21:37 101.2 04/28/25 21:28 130/68 04/28/25 21:06 20 99 Nasal Cannula* 2 28 04/28/25 20:59 101.2 04/28/25 20:28 151/85 04/28/25 20:07 97 04/28/25 19:59 103.0 04/28/25 19:56 103.1 102 18 172/93 (119) 97 103.1 04/28/25 19:56 Room Air* 0 21 04/28/25 19:40 102.5 96 20 198/108 99 102.5 04/28/25 19:15 97 Lab Test 04/28/25 23:55 04/28/25 21:18 04/28/25 21:00 04/28/25 19:57 Range/Units Urine Color Yellow Yellow Urine Clarity Turbid H Clear Urine pH 5.5 5.0-9.0 Urine Specific [place] 1.026 1.001-1.035 Urine Protein Trace H Negative Urine Ketones Negative Negative Urine Blood Negative Negative /uL Urine Nitrite Negative Negative Urine Bilirubin Negative Negative Urine Urobilinogen Normal Negative mg/dL Urine Leukocyte Esterase 3+ Negative /uL Urine RBC 3 0 - 4 /hpf Urine Microscopic WBC 6 H 0-5 /HPF Urine Squamous Epithelial Cells Mod <5 /hpf Urine Bacteria None seen None Seen /hpf Urine Mucus Few None Seen Urine Glucose Normal Normal mg/dL Influenza Type A Antigen Negative Negative Influenza Type B Antigen Negative Negative SARS-CoV-2 Antigen (Rapid) Negative NEGATIVE Troponin I High Sensitivity < 3 L < 3 L </=34 ng/L White Blood Count 4.1 L 4.4-10.8 10^3/uL Red Blood Count 4.69 4.0-5.20 10^6/uL Hemoglobin 12.3 12.2-16.2 g/dL Hematocrit 37.6 36.0-46.0 % Mean Corpuscular Volume 81.2 80.0-100.0 fL Mean Corpuscular Hemoglobin 26.6 L 28.0-32.0 pg Mean Corpuscular Hemoglobin Concent 32.8 32.0-36.0 g/dL Red Cell Distribution Width 14.7 H 11.8-14.3 % Platelet Count 208 140-450 10^3/uL Mean Platelet Volume 7.6 6.9-10.8 fL Neutrophils (%) (Auto) 69.4 37.0-80.0 % Lymphocytes (%) (Auto) 17.0 10.0-50.0 % Monocytes (%) (Auto) 12.1 H 0.0-12.0 % Eosinophils (%) (Auto) 1.1 0.0-7.0 % Basophils (%) (Auto) 0.4 0.0-2.0 % Neutrophils # (Auto) 2.8 1.6-8.6 10 ^3/uL Lymphocytes # (Auto) 0.7 0.4-5.4 10 ^3/uL Monocytes # (Auto) 0.5 0-1.3 10 ^3/uL Eosinophils # (Auto) 0 0-0.8 10 ^3/uL Basophils # (Auto) 0 0-0.2 10 ^3/uL Nucleated Red Blood Cells 0.1 % Sodium Level 140 136-145 mmol/L Potassium Level 3.6 3.5-5.1 mmol/L Chloride Level 103 98-107 mmol/L Carbon Dioxide Level 27 20-31 mmol/L Anion Gap 10 5-15 Blood Urea Nitrogen 7 L 9-23 mg/dL Creatinine 0.90 0.550-1.02 mg/dL Glomerular Filtration Rate Calc 77 >90 mL/min BUN/Creatinine Ratio 7.8 L 10.0-20.0 Serum Glucose 109 H 74-106 mg/dL Calcium Level 9.0 8.7-10.4 mg/dL B-Type Natriuretic Peptide 18.07 0-100 pg/mL Current Medications Medications (Trade) Dose Ordered Sig/Cezar Route Start Time Stop Time Status Last Admin Nitroglycerin (Ntrostat Sublingual) 0.4 mg ONCE ONCE 04/28/25 19:30 04/28/25 19:31 DC 04/28/25 20:28 Ondansetron HCl (Zofran Po) 4 mg ONCE ONCE PO 04/28/25 20:00 04/28/25 20:01 DC 04/28/25 19:59 Acetaminophen (Tylenol Tablet) 1,000 mg ONCE ONCE PO 04/28/25 20:00 04/28/25 20:01 DC 04/28/25 19:59 Albuterol (Ventolin Medneb) 5 mg ONCE ONCE NEB 04/28/25 21:00 04/28/25 21:01 DC 04/28/25 21:06 Ipratropium [place] (Atrovent Medneb) 0.5 mg ONCE ONCE NEB 04/28/25 21:00 04/28/25 21:01 DC 04/28/25 21:06 Dexamethasone Sodium Phosphate (Decadron Injection) 10 mg ONCE ONCE IV 04/28/25 21:00 04/28/25 21:01 DC 04/28/25 21:37 Ibuprofen (Motrin Tablet) 800 mg ONCE ONCE PO 04/28/25 21:30 04/28/25 21:31 DC 04/28/25 21:37 Gabapentin (Neurontin Capsule) 600 mg ONCE ONCE PO 04/28/25 21:45 04/28/25 21:46 DC 04/28/25 21:55 X-Ray, Labs, Meds, VS Comment All studies performed the ED were evaluated by me personally. Swabs were unremarkable for COVID or influenza. Serum studies were unremarkable for any systemic concerns. Urinalysis confirmed a mild urinary tract infection. Patient was given a dose of antibiotics prior to discharge. EKG revealed a sinus rhythm with a rate of 97. Borderline prolonged NM interval noted as well as borderline ST elevation in the lateral leads. NM interval 197 and QT interval of 333. Cardiac markers were unremarkable for any acute coronary concern. Patient appears to be suffering from a viral illness in a small urinary tract infection. Advised patient utilize Tylenol and or Motrin at homeless needed for symptomatic relief as well as good hydration and healthy nutrition. Time of 1ST Reevaluation: 01:11 Reevaluation 1ST: Improved Consultation: PCP Patient Education/Counseling: Diagnosis, Treatment Family Education/Counseling: Diagnosis, Treatment, No Family Present SEPSIS Sepsis Screen Date sepsis recognized/suspect: Apr 28, 2025 Time Sepsis recognized/suspect: 1909 Recent Procedure: No On Antibiotic Therapy: No Respiratory Rate >20: No Heart Rate >90: No Temp<36 C (96.8 F) or >38.3 C: No SBP <90 or MAP <65 mmHG: No New Acute Mental Status Change: No Is the patient on CPAP, BIPAP,: No Physician Orders Electrocardigram (04/28/25 19:21) Electrocardigram (04/28/25 20:21) Electrocardigram (04/28/25 22:21) Nitrofurantoin Capsule (Macrobid) (04/29/25 01:15) Vital Signs Date Time Temp Pulse Resp B/P (MAP) Pulse Ox O2 Delivery O2 Flow Rate FiO2 04/28/25 23:17 98.9 89 16 119/71 (87) 98 98.9 04/28/25 22:37 98.9 04/28/25 22:00 100.7 106 16 129/67 (87) 96 100.7 04/28/25 21:37 101.2 04/28/25 21:28 130/68 04/28/25 21:06 20 99 Nasal Cannula* 2 28 04/28/25 20:59 101.2 04/28/25 20:28 151/85 04/28/25 20:07 97 04/28/25 19:59 103.0 04/28/25 19:56 103.1 102 18 172/93 (119) 97 103.1 04/28/25 19:56 Room Air* 0 21 04/28/25 19:40 102.5 96 20 198/108 99 102.5 04/28/25 19:15 97 Laboratory Tests Test 04/28/25 19:57 White Blood Count 4.1 10^3/uL (4.4-10.8) L Medications Medications Dose Ordered Sig/Cezar Route Start Time Stop Time Status Last Admin Dose Admin Acetaminophen 1,000 mg ONCE ONCE PO 04/28/25 20:00 04/28/25 20:01 [place] 04/28/25 19:59 Albuterol 5 mg ONCE ONCE NEB 04/28/25 21:00 04/28/25 21:01 KS 04/28/25 21:06 Dexamethasone Sodium Phosphate 10 mg ONCE ONCE IV 04/28/25 21:00 04/28/25 21:01 KS 04/28/25 21:37 Gabapentin 600 mg ONCE ONCE PO 04/28/25 21:45 04/28/25 21:46 DC 04/28/25 21:55 Ibuprofen 800 mg ONCE ONCE PO 04/28/25 21:30 04/28/25 21:31 [place] 04/28/25 21:37 Ipratropium [place] 0.5 mg ONCE ONCE NEB 04/28/25 21:00 04/28/25 21:01 DC 04/28/25 21:06 Nitroglycerin 0.4 mg ONCE ONCE SL 04/28/25 19:30 04/28/25 19:31 DC 04/28/25 20:28 Ondansetron HCl 4 mg ONCE ONCE PO 04/28/25 20:00 04/28/25 20:01 DC 04/28/25 19:59 Departure 1 Departure Time of Disposition: 01:12 Impression: Primary Impression: Viral illness Additional Impression: UTI (urinary tract infection) Disposition: HOME / SELF CARE / HOMELESS Condition: Stable Additional Instructions: Advise utilizing antibiotics as directed until completion as well as additional medication as needed. Patient should hydrate well and practice healthy nutrition throughout illness event. e-Prescriptions Acetaminophen (Acetaminophen) 500 Mg Tab 500 MG PO Q4HP PRN, #30 TAB Prov: TAB CARD PAC 04/29/25 Ibuprofen Micronized (Ibuprofen) 800 Mg Tab 800 MG PO Q8HP PRN, #20 TAB Prov: TAB CARD PAC 04/29/25 Nitrofurantoin Monohydrate Mac (Macrobid) 100 Mg Cap 100 MG PO BID for 5 Days, #10 CAP Prov: TAB CARD PAC 04/29/25 Discharged With: Self, Friend Critical Care Note Critical Care Time?: No Stability Stability form required: No Heart Score Heart Score: Heart Score Response (Comments) Value History Moderate Suspicious 1 EKG Normal 0 Age 45-64 1 Risk Factors >3 or Hx ASHD 2 Troponin Normal limit 0 Total 4 I personally scribed for TAB CARD PAC ([email or web address]) on 04/28/25 at 20:25. Electronically submitted by Berry Baptiste ([email or web address]). I personally scribed for TAB CARD PAC ([email or web address]) on 04/28/25 at 20:26. Electronically submitted by Berry Baptiste ([email or web address]). TAB CARD PAC Apr 28, 2025 20:25
[2025-04-28] MEDS: NITROGLYCERIN 0.4 MG SL TAB SL ONE (20:28)
[2025-04-28] MEDS: ALBUTEROL SULF 2.5 MG/0.5ML(0.5%) NEB SOLN NEB ONE (21:06)
[2025-04-28] MEDS: IPRATROPIUM BROM 0.5 MG/2.5ML INH SOL NEB ONE (21:06)
[2025-04-28] MEDS: IBUPROFEN 800 MG TAB PO ONE (21:37)
[2025-04-28] MEDS: GABAPENTIN 300 MG CAP PO ONE (21:55)
[2025-04-28 22:08] LABS: COVID19 ANTIGEN SOFIA FIA NEGATIVE (NEGATIVE)
[2025-04-28 23:17] VITALS: BP 119/71; PULSE 89; RESP 16; TEMP 98.9; O2SAT 98
[2025-04-29 00:53] LABS: Urine Protein, UAD TRACE (Negative)
[2025-04-29] MEDS ORDERED: IBUP-1455 PO (01:13)
[2025-04-29] MEDS ORDERED: NITR-87 PO (01:13)
[2025-04-29] MEDS ORDERED: ACET500T58 PO (01:13)
--- NOTE | 2025-05-04 09:20 | ECG ---
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
--- NOTE | 2025-05-04 09:21 | ECG ---
[facility] Test Date: 2025-04-28 Test Time: 20:07:43 Pat Name: LIDNA CHO Department: [facility] ED Patient ID: [id number] Room: Gender: F Pediatric Physician: [email or web address] : 1975 Requested By: TAB CARD Order Number: [id number] Reading MD: Josue Mckeon Measurements Intervals [place] Rate: 97 P: 52 NE: 194 QRS: 24 QRSD: 82 T: 31 QT: 337 QTc: 428 Interpretive Statements Sinus rhythm Probable left atrial enlargement Baseline wander in lead(s) I,II,aVR,aVL,aVF,V2,V3,V4,V6 Electronically Signed On 05-07-2025 18:34:24 PDT by Josue Mckeon Please click the below link to view image of tracing.
== END 2025-04-29 02:22 | disposition home or self-care (01) ==
LOC: ER 19:10
DX: N39.0 Urinary tract infection, site not specified (principal); B34.9 Viral infection, unspecified; M19.90 Unspecified osteoarthritis, unspecified site; J45.909 Unspecified asthma, uncomplicated; I10 Essential (primary) hypertension; Z79.899 Other long term (current) drug therapy; Z90.710 Acquired absence of both cervix and uterus; Z88.6 Allergy status to analgesic agent; Z88.1 Allergy status to other antibiotic agents; Z20.822 Contact with and (suspected) exposure to COVID-19
CPT/HCPCS: 36415; 80048; 81001; 83880; 84484; 85025; 87426; 87804; 94640; 96374; 99284; J1100; Q0162; 93005